=== PATIENT | female | born 1945 | race Caucasian/White ===

== ENCOUNTER 2019-05-20 09:03 | Outpatient (CLI) | payer MEDICARE, SELFPAY ==
--- NOTE | ~2019-05-20 | MM_ITS ---
EXAMINATION: MM screening [facility] BI w [place] HISTORY: Screening mammogram TECHNIQUE: Craniocaudal and mediolateral oblique 3-D tomosynthesis images were obtained and synthetic 2-D images were generated. CAD analysis was submitted and interpreted. COMPARISON: 01/21/2017, 06/16/2015, 12/24/2013 BREAST PARENCHYMAL COMPOSITION: The breasts are almost entirely fatty. FINDINGS: There is no evidence of suspicious mass, calcification, or architectural distortion to sugg est malignancy in either breast. There has been no suspicious interval change. IMPRESSION: 1. No mammographic evidence of malignancy. 2. Recommend routine screening mammography in one year. BI-RADS Category 1: Negative Reviewed, dictated and finalized at location A. 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
--- NOTE | ~2019-05-20 | DEXA_ITS ---
Bone Density Report Name: Caro Powell Age: 73 Sex: Female Ethnicity: White Date of : 1945 Indication: postmenopausal; parental hip fracture; height loss; prior fracture; hysterectomy; Referring Provider: ALEXANDRE HOGAN Study: Bone densitometry was performed. Exam Date: May 20, 2019 Accession number: [id number] Bone Density: Region BMD T-score Z-score Classification AP Spine (L1-L4) 1.103 0.5 2.9 Normal Femoral Neck (Left) 0.916 0.6 2.7 Normal Total Hip (Left) 1.072 1.1 2.8 Normal Total Hip Bilateral Avg 1.049 0.9 2.6 Normal Femoral Neck (Right) 0.851 0.0 2.1 Normal Total Hip (Right) 1.025 0.7 2.4 Normal World Health Organization criteria for BMD impression classify patients as: Normal (T-score at or above -1.0), Osteopenia (T-score between -1.0 and -2.5), or Osteoporosis (T-score at or below -2.5). 10-year Fracture Risk: FRAX not reported because: All T-scores for Spine Total, Hip Total, Femoral Neck at or above -1.0 Previous Exams: Region Exam Age BMD T-score BMD Change BMD Change Date g/cm2 vs Baseline vs Previous AP Spine(L1-L4) 05/20/2019 73 1.103 0.5 0.027(2.6%)# -0.004(-0.3%) 01/21/2017 71 1.107 0.5 0.031(2.9%)# 0.020(1.9%) 12/24/2013 68 1.086 0.4 0.011(1.0%)# 0.043(4.1%)# 02/18/2011 65 1.044 0.0 -0.032(-3.0%)* -0.032(-3.0%)* 10/06/2006 60 1.075 0.3 Total Hip(Left) 05/20/2019 73 1.072 1.1 -0.007(-0.6%)# -0.039(-3.6%)* 01/21/2017 71 1.112 1.4 0.033(3.0%)# 0.069(6.6%)* 12/24/2013 68 1.042 0.8 -0.037(-3.4%)# -0.036(-3.4%)# 02/18/2011 65 1.079 1.1 0.000(0.0%) 0.000(0.0%) 10/06/2006 60 1.079 1.1 Total Hip(Right) 05/20/2019 73 1.025 0.7 -0.055(-5.1%)# -0.051(-4.7%)* 01/21/2017 71 1.076 1.1 -0.003(-0.3%)# 0.035(3.4%)* 12/24/2013 68 1.041 0.8 -0.039(-3.6%)# -0.051(-4.7%)# 02/18/2011 65 1.092 1.2 0.012(1.2%) 0.012(1.2%) 10/06/2006 60 1.080 1.1 *Denotes significance at 95% confidence level, LSC for AP Spine = 0.022 g/cm2, LSC for Total Hip = 0.027 g/cm2 Clinical Information Provided by Patient: Has had a low trauma fracture Parent has had a hip fracture Has the following medical conditions: Hysterectomy Patient maximum height was 63 Menopause Age: 59 No regular weight bearing exercise Drinks caffeinated beverages Onset of menses at age 13 Number of children 4 Impression: The patient [place]
== END 2019-05-20 09:04 | disposition home or self-care (01) ==
PROVIDERS: PCP Emergency Medicine; Visit Provider Emergency Medicine
DX: Z12.31 Encounter for screening mammogram for malignant neoplasm of breast (principal); Z78.0 Asymptomatic menopausal state
CPT/HCPCS: 77063; 77067; 77080

== ENCOUNTER 2020-06-26 14:15 | Outpatient (CLI) | payer MEDICARE, SELFPAY ==
--- NOTE | ~2020-06-26 | XR_ITS ---
EXAMINATION: XR hip RT 2V w AP pelvis INDICATION: Right hip pain TECHNIQUE: AP view of the pelvis and two views of the right hip are obtained. COMPARISON: 06/10/2017 FINDINGS: There is mild hip osteoarthritis. Bone alignment is normal. There is no fracture. Calcified atherosclerosis is noted. IMPRESSION: 1. Mild osteoarthritis. Reviewed, dictated and finalized at location A. 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 Mild osteoarthritis.
--- NOTE | ~2020-06-26 | XR_ITS ---
EXAMINATION: XR lumbar spine 2-3V DATE: 06/26/2020 14:51 INDICATION: Low back pain TECHNIQUE: Anteroposterior and lateral views of the lumbar spine, and cone-down lateral view of the l umbosacral junction were obtained. COMPARISON: None. FINDINGS: There are 2 mm of listhesis L5 on S1. Vertebral body alignment is otherwise normal. There i s severe loss of intervertebral disc space height at L5-S1 and mild to moderate loss of intervertebra l disc space height throughout the remainder of the lumbar spine. The lumbar vertebral body heights a re maintained. There is no fracture. There is a 4.6 cm saccular aneurysm of the infrarenal abdominal aorta. IMPRESSION: 1. Grade 1 anterolisthesis of L5 on S1 and otherwise mild to moderate lumbar spondylosis. 2. 4.6 cm saccular aneurysm of the infrarenal abdominal aorta. Further evaluation by CT with contrast is recommended. Reviewed, dictated and finalized at location A. DOM OF INFORMATION OFFICER IMPRESSION: 1. Grade 1 anterolisthesis of L5 on S1 and otherwise mild to moderate lumbar sp ondylosis. 2. 4.6 cm saccular aneurysm of the infrarenal abdominal aorta. Further evaluati on by CT with contrast is recommended.
== END 2020-06-26 14:16 | disposition home or self-care (01) ==
PROVIDERS: PCP Emergency Medicine; Visit Provider Emergency Medicine
DX: M25.551 Pain in right hip (principal); M54.5 Low back pain; M16.11 Unilateral primary osteoarthritis, right hip; M43.17 Spondylolisthesis, lumbosacral region; I71.4 Abdominal aortic aneurysm, without rupture; M47.816 Spondylosis without myelopathy or radiculopathy, lumbar region
CPT/HCPCS: 72100; 73502

== ENCOUNTER 2020-07-05 16:17 | Outpatient (CLI) | payer MEDICARE, SELFPAY ==
--- NOTE | ~2020-07-05 | CT_ITS ---
EXAMINATION: CTA abdomen pelvis DATE: 07/05/2020 17:15 INDICATION: Abdominal aortic aneurysm TECHNIQUE: Computed tomography (CT) of the abdomen and pelvis was performed with 100 cc Omnipaque 350 intravenous contrast. Automated exposure control and iterative reconstruction technique were employe d. Exam dose: 619.83 mGy-cm total exam DLP. COMPARISON: None. FINDINGS: There is mild discoid atelectasis or scarring in the lower lung zones with no infiltrate or consolidation. Heart size is within normal limits. There is trace pericardial fluid. Small sliding hiatal hernia. No hepatic, splenic, pancreatic space-occupying mass lesion. The gallbladder is present. No bile duct or pancreatic duct dilatation. 2 cm right adrenal mass and 1.1 cm left adrenal mass; if there is no known malignancy, these are like ly an adrenal adenomas. No renal mass lesion. No urinary tract calculus or hydroureteronephrosis. The urinary bladder is unre markable. Status post hysterectomy. Normal appendix. Occasional sigmoid colon diverticula; no CT evidence of diverticulitis. No bowel obstruction, bowel wall thickening, pneumatosis or intraperitoneal free air. Up to 3.6 cm fusiform infrarenal abdominal aortic aneurysm without evidence of rupture. The aneurysm terminates slightly proximal to the aortic bifurcation. There is an approximately 3.2 x 3.4 cm lucent lesion of the right sacral alar, with thin sclerotic ma rgins suggesting a colonic process. Consider radionuclide bone scan. Bilateral L5 pars and articularis defect with associated grade 1 anterolisthesis at L5-S1. Severe degenerative disc disease at L3-4 and L5-S1. Degenerative spurring of the lower thoracic spine. IMPRESSION: Fusiform 3.6 cm infrarenal abdominal aortic aneurysm Small sliding hiatal hernia Bilateral adrenal masses Sigmoid diverticulosis; no evidence of diverticulitis Status post hysterectomy Reviewed, dictated and finalized at Location A. Reviewed, dictated and finalized at location A.
[2020-07-05 17:08] LABS: Estimated Glomerular Filt Rate 44
== END 2020-07-05 16:18 | disposition home or self-care (01) ==
PROVIDERS: PCP Emergency Medicine; Visit Provider Emergency Medicine
DX: I71.4 Abdominal aortic aneurysm, without rupture (principal); E27.9 Disorder of adrenal gland, unspecified; M47.817 Spondylosis without myelopathy or radiculopathy, lumbosacral region; K57.30 Diverticulosis of large intestine without perforation or abscess without bleeding; K44.9 Diaphragmatic hernia without obstruction or gangrene
CPT/HCPCS: 74174; Q9967

== ENCOUNTER 2020-07-10 07:54 | Outpatient (CLI) | payer MEDICARE, SELFPAY ==
--- NOTE | ~2020-07-10 | NM_ITS ---
EXAMINATION: NM bone scan whole body DATE: 07/10/2020 12:25 INDICATION: Sacrococcygeal disorder TECHNIQUE: 44.3 mCi Tc-99m HDP was administered intravenously. Delayed whole-body scintigrams were o btained at 3 hours and 24 hours. COMPARISON: CT abdomen and pelvis dated 07/05/2020 FINDINGS: Photopenic defect at the right knee/with a total knee arthroplasty. Small foci of likely degenerative joint centered uptake at the medial and patellofemoral compartments of the left knee, at the right a nkle and left midfoot and at the bilateral acromioclavicular joints. Additional likely degenerative d isc centered uptake at several levels in the lower thoracic spine with severe disc height loss with d egenerative endplate changes evident on prior CT . There is also increased uptake at the lower lumbar spine associated with bilateral pars interarticularis defects. There is a photopenic defect correspo nding to the lytic lesion with central fat attenuation within the right sacral ala. No other suspicio us foci of abnormal bone uptake. IMPRESSION: 1. Photopenic defect corresponding to the lytic lesion with central fat attenuation and sharp zone of transition with thin sclerotic margins within the right sacral ala the absence of uptake on the CT a ppearance favors a benign etiology including intraosseous lipoma, hemangioma or involution of a prior bone cyst. Reviewed, dictated and finalized at location A. IMPRESSION: 1. Photopenic defect corresponding to the lytic lesion with central fat attenua tion and sharp zone of transition with thin sclerotic margins within the right sacral ala the absence of uptake on the CT appearance favors a benign etiology including intraosseous lipoma, hemangioma or involution of a prior bone cyst.
== END 2020-07-10 07:55 | disposition home or self-care (01) ==
PROVIDERS: PCP Emergency Medicine; Visit Provider Emergency Medicine
DX: M53.3 Sacrococcygeal disorders, not elsewhere classified (principal)
CPT/HCPCS: 78306; A9561

== ENCOUNTER 2020-07-25 08:59 | Outpatient (CLI) | payer MEDICARE, SELFPAY ==
--- NOTE | ~2020-07-25 | MM_ITS ---
EXAMINATION: MM screening [facility] BI w [facility] HISTORY: Screening mammogram TECHNIQUE: Craniocaudal and mediolateral oblique 3-D tomosynthesis images were obtained and synthetic 2-D images were generated. CAD analysis was submitted and interpreted. COMPARISON: 05/20/2019, 01/21/2017, 06/16/2015 bilateral digital screening mammogram examinations BREAST PARENCHYMAL COMPOSITION: The breasts are almost entirely fatty. FINDINGS: There is no evidence of suspicious mass, calcification, or architectural distortion to sugg est malignancy in either breast. There has been no suspicious interval change. IMPRESSION: 1. No mammographic evidence of malignancy. 2. Recommend routine screening mammography in one year. BI-RADS Category 1: Negative Reviewed, dictated and finalized at location A.
== END 2020-07-25 09:00 | disposition home or self-care (01) ==
PROVIDERS: PCP Emergency Medicine; Visit Provider Emergency Medicine
DX: Z12.31 Encounter for screening mammogram for malignant neoplasm of breast (principal)
CPT/HCPCS: 77063; 77067

== ENCOUNTER 2021-09-11 07:39 | Outpatient (CLI) | payer MEDICARE, BC, SELFPAY ==
--- NOTE | ~2021-09-11 | CT_ITS ---
EXAMINATION: CT abdomen pelvis w con DATE: 09/11/2021 08:12 INDICATION: Abdominal aortic aneurysm TECHNIQUE: Computed tomography (CT) of the abdomen and pelvis was performed with 100 mL Omnipaque-300 intravenous contrast. Automated exposure control and iterative reconstruction technique were employe d. The dose-length product was 732.41 mGy-cm. COMPARISON: 07/05/2020 FINDINGS: Calcified left lower lobe nodule and calcified left hilar lymph nodes consistent with old granulomato us disease. Mild atelectasis in the lingula and right middle lobe. Heart size is normal. Atherosclero tic coronary artery calcification. Aortic valve calcification. No pericardial or pleural effusion. Sm all sliding-type hiatal hernia. Liver and gallbladder are normal. There is moderate fatty atrophy of the pancreas. Tiny splenic calcification consistent with old granulomatous disease. No interval coto e in bilateral adrenal masses measuring 1.8 cm on the right and 1.2 cm on the left which given the in terval stability most likely represent adenomas. There are few scattered colonic diverticula without adjacent from 3 change to suggest diverticulitis. Small bowel and appendix are normal. Bladder is nor mal. The uterus is not identified and has likely been surgically resected. There is calcified atheros clerosis of the aorta and many of the other arteries. No interval change in a fusiform infrarenal abd ominal aortic aneurysm measuring 3.9 x 3.8 cm in maximal diameter measured orthogonal to the axis of flow on coronal and sagittal images respectively. No free intraperitoneal gas or fluid. No pathologic ally enlarged abdominal or pelvic lymphadenopathy. Severe lumbar and lower thoracic spondylosis. 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 No interval c hange in an indolent 3.5 cm lytic lesion at the S1 right sacral ala with arrows on of transition with thin sclerotic margins and with central macroscopic fat attenuation consistent with either intraosse ous lipoma or hemangioma. Couple unchanged small sclerotic bone islands at the left femoral head and left posterior iliac spine. IMPRESSION: 1. No significant change in a fusiform 3.9 x 3.8 cm infrarenal abdominal aortic aneurysm. 2. Small sliding-type hiatal hernia. 3. Diverticulosis. Reviewed, dictated and finalized at location B.
[2021-09-11 08:00] LABS: Estimated Glomerular Filt Rate 37
== END 2021-09-11 07:40 | disposition home or self-care (01) ==
PROVIDERS: PCP Emergency Medicine; Visit Provider Emergency Medicine
DX: I71.4 Abdominal aortic aneurysm, without rupture (principal); K44.9 Diaphragmatic hernia without obstruction or gangrene; K57.90 Diverticulosis of intestine, part unspecified, without perforation or abscess without bleeding
CPT/HCPCS: 74177; Q9967

== ENCOUNTER 2022-01-03 08:17 | Outpatient (CLI) | payer MEDICARE, SELFPAY ==
--- NOTE | 2022-01-03 12:29 | WPDPFTINT ---
PFT Procedure Performed PFT Procedure Performed Plethysmography (Lung Vol) Diffusing Cap (DLCO) Flow Vol Loop Spirometry w/o Bronchodil PFT Interpretation Lung volumes were measured with the body plethysmography method. Lung volumes are unremarkable. Spirometry showed normal expiratory flow rates and a normal FEV1 to FVC ratio 74%. No post bronchodilator study was carried out. Lung diffusion capacity is within the normal range at 79% predicted. The flow-volume loop is unremarkable. Impression: Spirometry, lung volumes, and lung diffusion capacity all within the normal range.
== END 2022-01-03 08:18 | disposition home or self-care (01) ==
LOC: ANHPFT 08:18
PROVIDERS: PCP Emergency Medicine; Visit Provider Internal Medicine Cardiovascular Disease
DX: R06.09 Other forms of dyspnea (principal); R06.00 Dyspnea, unspecified
CPT/HCPCS: 94375; 94726; 94729

== ENCOUNTER 2022-11-12 10:23 | Outpatient (CLI) | payer MEDICARE, BC, SELFPAY ==
--- NOTE | ~2022-11-12 | MM_ITS ---
EXAMINATION: MM screening [facility] BI w [facility] HISTORY: Screening mammogram TECHNIQUE: Craniocaudal and mediolateral oblique 3-D tomosynthesis images were obtained and synthetic 2-D images were generated. CAD analysis was submitted and interpreted. COMPARISON: 07/25/2020, 05/20/2019, 01/21/2017 BREAST PARENCHYMAL COMPOSITION: The breasts are almost entirely fatty. FINDINGS: No suspicious mass, calcification, or architectural distortion are identified in either meliton ast to suggest malignancy. There has been no suspicious interval change. IMPRESSION: 1. No mammographic evidence of malignancy. 2. Recommend routine screening mammography in one year. BI-RADS Category 1: Negative Reviewed, dictated and finalized at location D.
== END 2022-11-12 10:24 | disposition home or self-care (01) ==
PROVIDERS: PCP Emergency Medicine; Visit Provider Emergency Medicine
DX: Z12.31 Encounter for screening mammogram for malignant neoplasm of breast (principal)
CPT/HCPCS: 77063; 77067

== ENCOUNTER 2023-02-03 09:09 | Outpatient (CLI) | payer MEDICARE, SELFPAY ==
--- NOTE | ~2023-02-03 | US_ITS ---
EXAMINATION: US aorta DATE: 02/03/2023 11:11 INDICATION: Infrarenal abdominal aortic aneurysm without rupture TECHNIQUE: Grayscale, color Doppler, and pulsed Doppler images of the aorta and common iliac arteries were obtained. COMPARISON: CT abdomen and pelvis dated 09/11/2021 FINDINGS: The proximal aorta measures 2.8 cm. The mid aorta measures 1.8 cm. Fusiform infrarenal abdominal aort ic aneurysm in the distal aorta measuring up to 3.7 cm in AP diameter which is unchanged since the pr ior study. The left to right diameter on prior CT measured 3.9 cm. On transaxial imaging it measures no greater than 4.2 cm however this measurement can be artifactually exaggerated on transverse imagin g. No coronal imaging obtained. The right common iliac artery measures 1.1 cm. The left common iliac artery measures 1.1. IMPRESSION: 1. No significant interval change in a infrarenal abdominal aortic aneurysms measuring up to 3.7 cm A P diameter. Reviewed, dictated and finalized at location A. IMPRESSION: 1. No significant interval change in a infrarenal abdominal aortic aneurysms me asuring up to 3.7 cm AP diameter.
== END 2023-02-03 09:10 | disposition home or self-care (01) ==
PROVIDERS: PCP Emergency Medicine; Visit Provider Internal Medicine Cardiovascular Disease
DX: I71.43 Infrarenal abdominal aortic aneurysm, without rupture (principal)
CPT/HCPCS: 76775

== ENCOUNTER 2023-03-12 09:13 | Outpatient (CLI) | payer MEDICARE, SELFPAY ==
--- NOTE | ~2023-03-12 | XR_ITS ---
EXAMINATION: XR hand RT 2V INDICATION: Right hand and second metacarpophalangeal joint pain TECHNIQUE: Two views of the right hand are obtained. COMPARISON: None available FINDINGS: Bone alignment is normal. There is no fracture. There is mild osteoarthritis at the triscap he and first carpometacarpal joints as well is in multiple interphalangeal joints. No abnormal erosio ns are identified. No specific abnormality is identified at the second metacarpophalangeal joint as i ndicated clinical history. IMPRESSION: 1. No acute osseous abnormality. Reviewed, dictated and finalized at location F. 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
== END 2023-03-12 09:14 | disposition home or self-care (01) ==
PROVIDERS: PCP Emergency Medicine; Visit Provider Emergency Medicine
DX: M79.641 Pain in right hand (principal)
CPT/HCPCS: 73120

== ENCOUNTER 2023-04-08 12:03 | Outpatient (CLI) | payer MEDICARE, SELFPAY ==
--- NOTE | ~2023-04-08 | XR_ITS ---
Left Knee Technique: AP, lateral, and sunrise views were obtained. Clinical History: Pain Findings: No fracture or dislocation is seen. There is medial compartment narrowing, with moderate me dial joint line osteophyte formation. There is minimal spurring of the lateral patellofemoral compart ments. Soft tissues are unremarkable. No joint effusion is seen. Impression: Moderate medial compartment degenerative change. Minimal degenerative change of the lateral and vergara lofemoral compartments. Reviewed, dictated and finalized at location M. GER MUSIC Impression: Moderate medial compartment degenerative change. Minimal degenerative change of the lateral and patellofemoral compartments.
--- NOTE | ~2023-04-08 | XR_ITS ---
AP view of the pelvis and AP and lateral views of the right hip Clinical history: Pain Findings: No acute fracture or dislocation is seen. Osseous alignment is anatomic. There is mild dege nerative change of both hip. Soft tissues are unremarkable. Impression: Mild degenerative change of both hip joints. Reviewed, dictated and finalized at location . OR ENTERPRISE ARCHITECT Impression: Mild degenerative change of both hip joints.
== END 2023-04-08 12:04 | disposition home or self-care (01) ==
LOC: ANHIMG 12:08
PROVIDERS: PCP Emergency Medicine; Visit Provider Physician Assistant Surgical
DX: M70.61 Trochanteric bursitis, right hip (principal); M17.12 Unilateral primary osteoarthritis, left knee; M16.0 Bilateral primary osteoarthritis of hip
CPT/HCPCS: 73502; 73564

== ENCOUNTER 2023-06-14 14:17 | Emergency (ER) | payer MEDICARE, SELFPAY ==
--- NOTE | ~2023-06-14 | CT_ITS ---
EXAMINATION: CT brain wo con DATE: 06/14/2023 17:11 INDICATION: headache, hypertension . TECHNIQUE: Computed tomography (CT) of the head was performed without intravenous contrast. The mA wa s adjusted according to patient size. Iterative reconstruction technique was employed. The dose-lengt h product was 605.33 mGy-cm. COMPARISON: None. FINDINGS: No acute intracranial hemorrhage or extra-axial fluid collection. No hydrocephalus, mass, or herniation. No acute ischemic infarct. Unremarkable dural venous sinus attenuation. No acute osseous abnormality. The aerated spaces are clear. Mild atrophy and moderate chronic white matter change. Atherosclerotic intracranial calcification. Bi lateral lens replacements. IMPRESSION: No acute intracranial process. Reviewed, dictated and finalized at location K. 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
--- NOTE | ~2023-06-14 | XR_ITS ---
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 RESULT: Lines, tubes, and devices: None. Lungs and pleura: No focal consolidation, pleural effusion, or pneumothorax. Calcified granulomas. Cardiomediastinal silhouette: Stable. Other: No acute osseous or upper abdominal finding. IMPRESSION: No acute cardiopulmonary process. Reviewed, dictated and finalized at location K. D EQUIPMENT MECHANIC
[2023-06-14 14:33] VITALS: BP 205/68; PULSE 61; RESP 18; TEMP 36.6; O2SAT 98
--- NOTE | 2023-06-14 14:40 | ECG_ITS ---
Measurements Intervals [place] Rate: 63 P: 17 OR: 204 QRS: -2 QRSD: 79 T: 23 QT: 434 QTc: 447 Interpretive Statements SINUS RHYTHM CANNOT RULE OUT ANTEROSEPTAL MYOCARDIAL INFARCTION, OF INDETERMINATE AGE CANNOT RULE OUT iNFERIOR MYOCARDIAL INFARCTION , PROBABLY OLD ABNORMAL ECG NO PREVIOUS ECG AVAILABLE FOR COMPARISON Electronically Signed On 06-15-2023 17:59:52 COUNTER ROLLER by Marco A Reilly M.D.
[2023-06-14 15:00] LABS: Basophils Percent Auto 0.7 % (0.2-1.2); Eosinophils Absolute Auto 0.2 K/mm3 (0-0.3); Eosinophils Percent Auto 3.3 % (0-4.4); Hematocrit 37.8 % (37.0-47.0); Hemoglobin 12.2 g/dL (12.0-15.0); Immature Granulocyte Absolute 0.01 K/mm3 (0.00-0.031); Immature Granulocyte Percent A 0.2 % (0-0.5); Lymphocytes Absolute Auto 1.55 K/mm3 (0.9-3.2); Lymphocytes Percent Auto 26.9 % (18.3-44.2); Mean Corpuscular HGB Conc 32.3 g/dl (32-36); Mean Corpuscular Hemoglobin 29.5 pg (26-34); Mean Corpuscular Volume 91.3 fl (80-100); Mean Platelet Volume 11.6 fl (7.4-10.4); Monocytes Absolute Auto 0.6 K/mm3 (0.1-0.6); Monocytes Percent Auto 9.7 % (2.6-8.5); Neutrophils Absolute Auto 3.4 K/mm3 (1.3-6.7); Neutrophils Percent Auto 59.2 % (45.5-73.1); Platelet Count Result 177 k/mm3 (150-375); Red Blood Count 4.14 M/mm3 (4.2-5.4); Red Cell Distribution Width 13.9 % (11.5-14.5); White Blood Count 5.8 K/mm3 (4.5-10.0)
[2023-06-14 15:13] LABS: Alanine Aminotransferase 20 U/L (6-35); Albumin Level 4.3 g/dL (3.5-5.1); Alkaline Phosphatase 57 U/L (38-126); Anion Gap 6 mmol/L (8-16); Aspartate Amino Transferase 27 U/L (14-36); Bilirubin,Total 0.5 mg/dL (0.2-1.3); Blood Urea Nitrogen 30 mg/dL (7-17); Calcium 9.7 mg/dL (8.4-10.2); Carbon Dioxide 29 mmol/L (22-30); Chloride 104 mmol/L (98-107); Estimated CRCL calculation 31 ml/min; Estimated Glomerular Filt Rate 40; Glucose 96 mg/dL (65-110); Potassium 3.9 mmol/L (3.4-5.0); Sodium 139 mmol/L (137-145)
[2023-06-14 15:24] LABS: Troponin I < 0.012 ng/mL (0.000-0.034)
[2023-06-14 16:11] VITALS: RESP 20; O2SAT 100
[2023-06-14 16:13] VITALS: BP 219/80; PULSE 54; RESP 18; O2SAT 100
--- NOTE | 2023-06-14 16:37 | ED.RECABL ---
HPI - Recheck/Abnormal Lab/Rx General Chief Complaint: Recheck/Abnormal Lab/Rx Stated Complaint: HTN Time Seen by Provider: 06/14/23 16:09 Source: patient Mode of arrival: ambulatory Limitations: no limitations History of Present Illness HPI narrative: This is a 77 year old female that presents to the ER for hypertension. Reports she has been checking her blood pressure regularly at home. It has been elevated up to 200 systolic which prompted her to be seen. She reports an associated headache. She takes 3 antihypertensives and has been taking them as prescribed. Reports she has had some trouble with exertional dyspnea ongoing over the last several months. Denies chest pain, or lower extremity edema. Related Data Home Medications Medication Instructions Recorded Confirmed rivaroxaban 2.5 mg tablet (Xarelto) 2.5 mg PO BID 07/08/22 04/09/23 Allergies Allergy/AdvReac Type Severity Reaction Status Date / Time No Known Allergies Allergy Verified 06/14/23 14:39 Review of Systems Review of Systems: CONSTITUTIONAL: Denies fever EYES: Denies visual changes CARDIOVASCULAR: Denies chest pain, or edema. RESPIRATORY: Reports dyspnea. NEUROLOGIC: Reports headache. Denies numbness, or weakness. All systems reviewed & are unremarkable except as noted in HPI and below PMFSH Past Medical History Medical History Back pain with left-sided radiculopathy Bilateral carotid bruits Body mass index [BMI] 27.0-27.9, adult (08/27/16) Body mass index [BMI] 28.0-28.9, adult (11/27/15) Burning with urination Carotid artery bruit Chest pain in adult Closed nondisplaced fracture of greater tuberosity of left humerus Fracture of proximal end of left humerus (~12/2018) Hematuria HLD (hyperlipidemia) Hyperglycemia Hypothyroidism (acquired) Left hip pain Left leg pain Lightheaded Localized osteoarthritis of left knee Osteoarthritis of left knee Primary generalized (osteo)arthritis RLS (restless legs syndrome) Stress incontinence in female Surgical History Surgical History History of prolapse of bladder History of total right knee replacement (~06/18/18) Hx of hysterectomy Family History Family History Sibling Family history of diabetes mellitus in first degree relative Social History Social History Smoking status: Never smoker Alcohol intake: never Current Housing: Decline to Answer Concerned About Future Housing: Decline to Answer Difficulty Paying Gas/Electric Bills: Decline to Answer Difficulty Paying for Meds: Decline to Answer Currently Unemployed: Decline to Answer Education: Decline to Answer Difficulty w/ Childcare or Family Care: Decline to Answer Exam Narrative: GENERAL: Elderly, well-nourished, and in no acute distress. HEAD: Normocephalic, atraumatic. EYES: PERRLA and EOMI. ENT: Nares clear, no rhinorrhea or epistaxis. Mucous membranes moist. Oropharynx without tonsillar hypertrophy exudate or other lesions. Bilateral TMs pearly blake non-bulging NECK: Supple. No adenopathy or masses. CHEST: Clear to auscultation. No respiratory distress. No wheezes rales or rhonchi HEART: Regular rate and rhythm. No murmur heard. Normal peripheral pulses. EXTREMITIES: Normal range of motion. No edema. SKIN: Warm, dry, no rash. NEURO: No focal deficits. Alert and oriented x3. CN II-XII grossly intact PSYCH: Normal mood and affect Course Course Emergency Course: Patient updated on her workup and agrees with plan of care Consultations Consultation #1: Spoke with Dr. Baca about patient and workup. Will increase Guanfacine to 2mg and she can follow up in clinic early next week Date: 06/14/23 Vital Signs Vital signs: Vital Signs Temperature 97.9 F 06/14/23 14:33 Pulse Rate 61
[2023-06-14 16:38] VITALS: BP 184/93; PULSE 63; RESP 18; O2SAT 99
[2023-06-14 16:47] VITALS: BP 170/75; PULSE 63; RESP 18; O2SAT 100
[2023-06-14 18:10] VITALS: BP 175/68; PULSE 63; RESP 18; O2SAT 98
== END 2023-06-14 18:13 | disposition home or self-care (01) ==
PROVIDERS: Emergency Medicine; Emergency Provider Physician Assistant; PCP Emergency Medicine
DX: I10 Essential (primary) hypertension (principal); E78.5 Hyperlipidemia, unspecified; E03.9 Hypothyroidism, unspecified; M17.12 Unilateral primary osteoarthritis, left knee; G25.81 Restless legs syndrome; N39.3 Stress incontinence (female) (male); Z96.651 Presence of right artificial knee joint; Z90.710 Acquired absence of both cervix and uterus; R94.31 Abnormal electrocardiogram [ECG] [EKG]
CPT/HCPCS: 36415; 70450; 71046; 80053; 84484; 85025; 93005; 99284

== ENCOUNTER 2023-07-02 09:46 | Outpatient (CLI) | payer MEDICARE, SELFPAY ==
--- NOTE | ~2023-07-02 | MR_ITS ---
EXAMINATION: MR lumbar spine wo con DATE: 07/02/2023 10:26 INDICATION: Lumbar radiculopathy TECHNIQUE: Magnetic resonance imaging (MRI) of the lumbar spine was performed without intravenous con trast. Sequences included sagittal T2-weighted FSE, sagittal T2-weighted FS FSE, sagittal T1-weighted FSE, and axial T2-weighted FSE. COMPARISON: Lumbar spine radiographs dated 06/26/[address] abdomen and pelvis dated 09/11/2021 FINDINGS: L5 spondylolysis with bilateral pars intra-articular is defects and 6 mm anterolisthesis of L5 on S1. L1-2 millimeters retrolisthesis L1 on L2. Vertebral body heights are normal. Large relatively homoge neous T1 hyperintense fat saturating likely intraosseous lipoma versus hemangioma at the right sacral ala. Otherwise normal marrow signal. Moderate disc height loss at L3-L4 and L5-S1. Mild disc height loss at 11 T12, L1-L2 and L2-L3. Annular fissures at L1-L2 through L3-L4 and L5-S1. The conus medulla ris terminates at L1. There is normal signal in the caudal spinal cord. 8 mm T2 hyperintense right re nal cyst. Paravertebral soft tissues are unremarkable. The following disc levels are specifically dis cussed: T11-T12: The disc space is not included on the axial images. On the sagittal images however the disc is bulging with annular fissure and what appears be a small disc extrusion is an annular fissure and small right paracentral disc extrusion extending up to 1 cm below level of the superior endplate of T 12. This contributes to mild central canal stenosis. T12-L1: Small left paracentral disc protrusion. There is mild bilateral facet joint osteoarthritis. T here is no neural foraminal stenosis. There is minimal central canal stenosis. L1-L2: Disc is bulging with annular fissure. There is mild to moderate bilateral facet joint osteoart hritis. There is altered left and moderate right neural foraminal stenosis. There is mild central can al stenosis. L2-L3: Disc is bulging with annular fissure. There is hypertrophy of the ligamentum flavum. There is mild left and mild to moderate right facet joint osteoarthritis. There is mild to moderate bilateral neural foraminal stenosis. There is mild central canal stenosis. L3-L4: Disc is bulging with annular fissure. There is mild left and moderate right facet joint osteoa rthritis. There is moderate left and mild to moderate right neural foraminal stenosis. There is moder ate to severe central canal stenosis measuring 7 mm AP in the mid sagittal plane with no evident CSF signal surrounding the centrally clustered nerve roots. L4-L5: Disc is mildly bulging. There is moderate bilateral facet joint osteoarthritis. There is mild left and moderate right neural foraminal stenosis. There is minimal central canal stenosis. L5-S1: Annular fissure with broad-based disc extrusion extending from foraminal zone to foraminal zon e with disc material extending up to 5 mm cephalad to the level of the inferior endplate of L5. There is moderate bilateral facet joint osteoarthritis along with bilateral pars intra-articular is defect s.. There is moderate to severe bilateral neural foraminal stenosis. There is no central canal stenos is. IMPRESSION: 1. L5 spondylolysis with bilateral pars intra-articular is defects and 6 mm anterolisthesis L5 on S1. 2. Moderate lumbar spondylosis most notable for moderate to severe central canal stenosis at L3-L4 an d moderate to severe bilateral neural foraminal stenosis at L5-S1. 2. Reviewed, dictated and finalized at location B. IMPRESSION: 1. L5 spondylolysis with bilateral pars intra-articular is defects and 6 mm ant erolisthesis L5 on S1. 2. Moderate lumbar spondylosis most notable for moderate to severe central ofelia l stenosis at L3-L4 and moderate to severe bilateral neural foraminal olya
== END 2023-07-02 09:47 | disposition home or self-care (01) ==
LOC: ANHIMG 09:47
PROVIDERS: PCP Emergency Medicine; Visit Provider Emergency Medicine
DX: M43.06 Spondylolysis, lumbar region (principal); M47.817 Spondylosis without myelopathy or radiculopathy, lumbosacral region; M48.061 Spinal stenosis, lumbar region without neurogenic claudication; M48.07 Spinal stenosis, lumbosacral region
CPT/HCPCS: 72148

== ENCOUNTER 2023-09-02 10:47 | Outpatient (CLI) | payer MEDICARE, SELFPAY ==
[2023-09-02 11:37] LABS: Hematocrit 36.6 % (37.0-47.0); Hemoglobin 11.8 g/dL (12.0-15.0); Mean Corpuscular HGB Conc 32.2 g/dl (32-36); Mean Corpuscular Hemoglobin 29.9 pg (26-34); Mean Corpuscular Volume 92.7 fl (80-100); Mean Platelet Volume 12.5 fl (7.4-10.4); Platelet Count Result 166 k/mm3 (150-375); Red Blood Count 3.95 M/mm3 (4.2-5.4); White Blood Count 5.5 K/mm3 (4.5-10.0)
[2023-09-02 11:42] LABS: Appearance Urine Clear (Clear); Bilirubin Urine Negative (Negative); Blood Urine Negative (Negative); Color Urine Yellow (Yellow); Glucose Urine UA Negative (Negative); Ketones Urine Negative (Negative); Leukocyte Esterase Ur Negative LEU/UL (Negative); Nitrate Urine Negative (Negative); Protein Urine Negative (Negative); Specific Grav Ur 1.008 (1.001-1.035); Urobilinogen Urine 0.2 mg/dL (<2.0); pH Urine 5.5 (5.0-9.0)
[2023-09-02 11:50] LABS: Creatinine Urine 30.9 mg/dL; Total Protein Urine Random 12 mg/dL; Ur Ttl Prot Creatinine Ratio 0.39 mg/mg (0-0.20)
[2023-09-02 11:51] LABS: Albumin Level 4.3 g/dL (3.5-5.1); Anion Gap 5 mmol/L (4-12); Blood Urea Nitrogen 34 mg/dL (7-17); Calcium 9.4 mg/dL (8.4-10.2); Carbon Dioxide 29 mmol/L (22-30); Chloride 106 mmol/L (98-107); Creatine Kinase 116 U/L (30-135); Estimated Glomerular Filt Rate 40; Glucose 80 mg/dL (65-110); Phosphorus 4.1 mg/dL (2.5-4.5); Potassium 4.8 mmol/L (3.4-5.0); Sodium 140 mmol/L (137-145)
[2023-09-02 11:57] LABS: Add Urine Microscopic? NO
[2023-09-02 11:58] LABS: Complement C3 110 mg/dL (88-165)
[2023-09-02 12:00] LABS: Parathyroid Intact 90.9 pg/mL (7.5-53.5)
[2023-09-02 13:46] LABS: Erythrocyte Sedimentation Rate 22 mm/hr (0-20)
[2023-09-03 13:19] LABS: Kappa\\Lambda Light Chains 1.44 (0.26-1.65); Lambda Light Chain 17.4 mg/L (5.7-26.3)
[2023-09-03 14:19] LABS: Complement Total CH50 >60 U/mL (31-60)
[2023-09-06 03:58] LABS: Renin 1.15 ng/mL/h (0.25-5.82)
== END 2023-09-02 10:48 | disposition home or self-care (01) ==
LOC: ANHLAB 10:50
PROVIDERS: PCP Emergency Medicine; Visit Provider Internal Medicine Nephrology
DX: I12.9 Hypertensive chronic kidney disease with stage 1 through stage 4 chronic kidney disease, or unspecified chronic kidney disease (principal); N18.32 Chronic kidney disease, stage 3b; E78.2 Mixed hyperlipidemia
CPT/HCPCS: 36415; 80069; 81003; 82088; 82550; 82570; 83883; 83970; 84156; 84244; 84443; 85027; 85652; 86038; 86160; 86162

== ENCOUNTER 2023-09-17 10:12 | Outpatient (CLI) | payer MEDICARE, SELFPAY ==
[2023-09-22 12:36] LABS: Metanephrine, Urine 95
[2023-09-22 12:37] LABS: Metanephrine, Total Urine 251; Normetanephrine, Urine 156
== END 2023-09-17 10:13 | disposition home or self-care (01) ==
PROVIDERS: PCP Emergency Medicine; Visit Provider Internal Medicine Nephrology
DX: I12.9 Hypertensive chronic kidney disease with stage 1 through stage 4 chronic kidney disease, or unspecified chronic kidney disease (principal); N18.32 Chronic kidney disease, stage 3b; R76.0 Raised antibody titer; E21.1 Secondary hyperparathyroidism, not elsewhere classified
CPT/HCPCS: 36415; 82530; 83835; 86038; 86039; 86335

== ENCOUNTER 2023-09-19 11:10 | Outpatient (CLI) | payer MEDICARE, SELFPAY ==
--- NOTE | ~2023-09-19 | US_ITS ---
Renal-Bladder ultrasound Clinical History: Chronic kidney disease Technique: Real-time sonographic imaging of the kidneys and urinary bladder was performed. Findings: The right kidney measures 10.2 cm in length and the left kidney measures 13.5 cm. There is no hydronephrosis or renal calculus identified. Renal cortical echogenicity is within normal limits. No renal mass lesion is identified. The urinary bladder is moderately distended at the time of this exam. No intraluminal echoes are iden tified. No abnormal wall thickening is seen. Impression: Unremarkable ultrasound of the kidneys and urinary bladder. Reviewed, dictated and finalized at location M. Impression: Unremarkable ultrasound of the kidneys and urinary bladder.
== END 2023-09-19 11:11 | disposition home or self-care (01) ==
LOC: ANHIMG 11:11
PROVIDERS: PCP Emergency Medicine; Visit Provider Internal Medicine Nephrology
DX: I12.9 Hypertensive chronic kidney disease with stage 1 through stage 4 chronic kidney disease, or unspecified chronic kidney disease (principal); N18.32 Chronic kidney disease, stage 3b
CPT/HCPCS: 76775

== ENCOUNTER 2023-10-06 12:02 | Outpatient (CLI) | payer MEDICARE, SELFPAY ==
[2023-10-06 13:17] LABS: Rheumatoid Factor < 12.0 IU/ML (<12)
[2023-10-06 13:42] LABS: Vitamin D 25 Hydroxy 50.2 ng/mL
[2023-10-06 14:00] LABS: Erythrocyte Sedimentation Rate 32 mm/hr (0-20)
[2023-10-08 13:08] LABS: SS-A <1.0 NEG AI (<1.0 NEG); SS-B <1.0 NEG AI (<1.0 NEG)
[2023-10-09 00:47] LABS: ANCA Screen NEGATIVE (NEGATIVE)
[2023-10-09 13:38] LABS: Anti Glomerular Basement Memb <1.0 AI
[2023-10-13 15:03] LABS: Cryoglobulin, QL Negative (Negative)
== END 2023-10-06 12:03 | disposition home or self-care (01) ==
PROVIDERS: PCP Emergency Medicine; Visit Provider Internal Medicine Nephrology
DX: E21.1 Secondary hyperparathyroidism, not elsewhere classified (principal); N18.32 Chronic kidney disease, stage 3b; R76.0 Raised antibody titer
CPT/HCPCS: 36415; 82306; 82595; 83520; 85652; 86036; 86225; 86235; 86430

== ENCOUNTER 2023-12-30 10:56 | Outpatient (CLI) | payer MEDICARE, SELFPAY ==
[2023-12-30 11:21] LABS: Hematocrit 36.1 % (37.0-47.0); Hemoglobin 11.6 g/dL (12.0-15.0); Mean Corpuscular HGB Conc 32.1 g/dl (32-36); Mean Corpuscular Hemoglobin 29.8 pg (26-34); Mean Corpuscular Volume 92.8 fl (80-100); Mean Platelet Volume 11.3 fl (7.4-10.4); Platelet Count Result 178 k/mm3 (150-375); Red Blood Count 3.89 M/mm3 (4.2-5.4); Red Cell Distribution Width 13.9 % (11.5-14.5); White Blood Count 5.9 K/mm3 (4.5-10.0)
[2023-12-30 11:41] LABS: Creatinine Urine 25.5 mg/dL; Total Protein Urine Random 11 mg/dL; Ur Ttl Prot Creatinine Ratio 0.43 mg/mg (0-0.20)
[2023-12-30 11:42] LABS: Albumin Level 4.1 g/dL (3.5-5.1); Anion Gap 8 mmol/L (4-12); Blood Urea Nitrogen 33 mg/dL (7-17); Calcium 9.1 mg/dL (8.4-10.2); Carbon Dioxide 30 mmol/L (22-30); Chloride 97 mmol/L (98-107); Estimated Glomerular Filt Rate 33; Glucose 86 mg/dL (65-110); Phosphorus 3.6 mg/dL (2.5-4.5); Potassium 4.1 mmol/L (3.4-5.0); Sodium 135 mmol/L (137-145)
[2023-12-30 11:53] LABS: Parathyroid Intact 67.7 pg/mL (14.5-75.2)
== END 2023-12-30 10:57 | disposition home or self-care (01) ==
PROVIDERS: PCP Emergency Medicine; Visit Provider Internal Medicine Nephrology
DX: N18.32 Chronic kidney disease, stage 3b (principal); E78.2 Mixed hyperlipidemia
CPT/HCPCS: 36415; 80069; 82570; 83970; 84156; 85027

== ENCOUNTER 2024-01-29 14:25 | Outpatient (CLI) | payer MEDICARE, SELFPAY ==
[2024-01-29 14:46] LABS: Anion Gap 6 mmol/L (4-12); Blood Urea Nitrogen 36 mg/dL (7-17); Calcium 9.2 mg/dL (8.4-10.2); Carbon Dioxide 32 mmol/L (22-30); Chloride 93 mmol/L (98-107); Estimated Glomerular Filt Rate 27; Glucose 104 mg/dL (65-110); Potassium 3.7 mmol/L (3.4-5.0); Sodium 131 mmol/L (137-145)
== END 2024-01-29 14:26 | disposition home or self-care (01) ==
LOC: ANHLAB 14:27
PROVIDERS: PCP Emergency Medicine; Visit Provider Internal Medicine Nephrology
DX: N18.32 Chronic kidney disease, stage 3b (principal)
CPT/HCPCS: 36415; 80048

== ENCOUNTER 2024-02-26 11:05 | Outpatient (CLI) | payer MEDICARE, SELFPAY ==
[2024-02-26 12:02] LABS: Anion Gap 13 mmol/L (4-12); Blood Urea Nitrogen 42 mg/dL (7-17); Calcium 9.7 mg/dL (8.4-10.2); Carbon Dioxide 28 mmol/L (22-30); Chloride 98 mmol/L (98-107); Estimated Glomerular Filt Rate 29; Glucose 115 mg/dL (65-110); Potassium 3.9 mmol/L (3.4-5.0); Sodium 139 mmol/L (137-145)
== END 2024-02-26 11:06 | disposition home or self-care (01) ==
PROVIDERS: PCP Emergency Medicine; Visit Provider Internal Medicine Nephrology
DX: E87.1 Hypo-osmolality and hyponatremia (principal)
CPT/HCPCS: 36415; 80048

== ENCOUNTER 2024-03-22 13:25 | Outpatient (CLI) | payer MEDICARE, SELFPAY ==
--- NOTE | ~2024-03-22 | XR_ITS ---
Lumbosacral Spine: AP and lateral views Clinical History: Pain COMPARISON: 321 Findings: The normal lordotic curve is maintained. No acute fracture. Stable grade 1 anterolisthesis of L5 over S1. Severe degenerative disc change L5-S1 is present. There is mild to moderate degenerati ve disc change at the remaining lumbar levels. There is advanced facet arthropathy, especially at L4- L5 and L5-S1. The sacroiliac joints are normally outlined. There is extensive atherosclerotic calcifi cation of the aorta, delineating a saccular aneurysm measuring up to 4.6 cm in diameter, stable from prior exam. Impression: Advanced degenerative spondylosis of the lumbar spine, as detailed above. 4.6 cm distal abdominal aortic aneurysm, stable from prior exam. Reviewed, dictated and finalized at [facility]. TECHNICAL ARCHITECT Impression: Advanced degenerative spondylosis of the lumbar spine, as detailed above. 4.6 cm distal abdominal aortic aneurysm, stable from prior exam.
== END 2024-03-22 13:26 | disposition home or self-care (01) ==
LOC: ANHIMG 13:27
PROVIDERS: PCP Emergency Medicine; Visit Provider Emergency Medicine
DX: M47.816 Spondylosis without myelopathy or radiculopathy, lumbar region (principal); I71.40 Abdominal aortic aneurysm, without rupture, unspecified
CPT/HCPCS: 72100

== ENCOUNTER 2024-04-19 10:25 | Outpatient (CLI) | payer MEDICARE, SELFPAY ==
[2024-04-19 11:05] LABS: Hematocrit 36.5 % (37.0-47.0); Hemoglobin 11.9 g/dL (12.0-15.0); Mean Corpuscular HGB Conc 32.6 g/dl (32-36); Mean Corpuscular Hemoglobin 29.3 pg (26-34); Mean Corpuscular Volume 89.9 fl (80-100); Mean Platelet Volume 11.2 fl (7.4-10.4); Platelet Count Result 215 k/mm3 (150-375); Red Blood Count 4.06 M/mm3 (4.2-5.4); Red Cell Distribution Width 14.1 % (11.5-14.5); White Blood Count 7.6 K/mm3 (4.5-10.0)
[2024-04-19 11:17] LABS: Creatine Kinase 181 U/L (30-135); Phosphorus 4.9 mg/dL (2.5-4.5)
[2024-04-19 11:24] LABS: Add Urine Microscopic? YES; Appearance Urine Clear (Clear); Bacteria Urine None Seen /hpf; Bilirubin Urine Negative (Negative); Blood Urine Negative (Negative); Color Urine Yellow (Yellow); Glucose Urine UA Negative (Negative); Ketones Urine Negative (Negative); Leukocyte Esterase Ur 2+ LEU/UL (Negative); Nitrate Urine Negative (Negative); Non Pathogenic Casts 0-2; Protein Urine Negative (Negative); RBC Urine 0-2 /hpf (0-2); Specific Grav Ur 1.008 (1.001-1.035); Squamous Epithelial Cell Urine None Seen /hpf (Few); Urobilinogen Urine 0.2 mg/dL (<2.0); WBC Urine 21-50 /hpf (0-3)
[2024-04-19 11:25] LABS: Alanine Aminotransferase 19 U/L (6-35); Albumin Level 4.1 g/dL (3.5-5.1); Alkaline Phosphatase 51 U/L (38-126); Anion Gap 4 mmol/L (4-12); Aspartate Amino Transferase 25 U/L (14-36); Bilirubin,Total 0.4 mg/dL (0.2-1.3); Blood Urea Nitrogen 44 mg/dL (7-17); Calcium 9.4 mg/dL (8.4-10.2); Carbon Dioxide 31 mmol/L (22-30); Chloride 100 mmol/L (98-107); Cholesterol 158 mg/dL (0-200); Estimated Glomerular Filt Rate 27; Glucose 75 mg/dL (65-110); HDL Direct 58 mg/dL; Parathyroid Intact 57.4 pg/mL (14.5-75.2); Sodium 135 mmol/L (137-145); Triglycerides 128 mg/dL (<150)
[2024-04-19 11:28] LABS: LDL Cholesterol Direct 54 mg/dL
[2024-04-19 11:36] LABS: Creatinine Urine 33.4 mg/dL; Total Protein Urine Random 13 mg/dL; Ur Ttl Prot Creatinine Ratio 0.39 mg/mg (0-0.20)
[2024-04-19 11:39] LABS: Creatinine Urine 32.9 mg/dL
[2024-04-19 11:45] LABS: Sodium Urine Random 64 meq/L
[2024-04-19 12:00] LABS: Vitamin D 25 Hydroxy 43.1 ng/mL
[2024-04-19 16:45] LABS: Potassium 3.8 mmol/L (3.4-5.0)
== END 2024-04-19 10:26 | disposition home or self-care (01) ==
PROVIDERS: PCP Emergency Medicine; Visit Provider Internal Medicine Nephrology
DX: E78.2 Mixed hyperlipidemia (principal); I12.9 Hypertensive chronic kidney disease with stage 1 through stage 4 chronic kidney disease, or unspecified chronic kidney disease; N18.32 Chronic kidney disease, stage 3b; E03.9 Hypothyroidism, unspecified; E78.5 Hyperlipidemia, unspecified; E55.9 Vitamin D deficiency, unspecified
CPT/HCPCS: 36415; 80053; 80061; 81001; 82306; 82550; 82570; 83970; 84100; 84156; 84300; 84443; 85027

== ENCOUNTER 2024-04-22 16:08 | Outpatient (CLI) | payer MEDICARE, SELFPAY | END 2024-04-22 16:09 | disposition home or self-care (01) | LOC: ANHLAB 16:14 | PROVIDERS: PCP Emergency Medicine; Visit Provider Internal Medicine Nephrology | DX: R82.81 Pyuria (principal) | CPT/HCPCS: 87077; 87086; 87186 ==

== ENCOUNTER 2024-05-07 09:50 | Outpatient (CLI) | payer MEDICARE, SELFPAY ==
--- NOTE | ~2024-05-07 | US_ITS ---
EXAMINATION: US aorta DATE: 05/07/2024 12:35 AVIATION MECHANIC INDICATION: Abdominal aortic aneurysm TECHNIQUE: Grayscale, color Doppler, and pulsed Doppler images of the aorta and common iliac arteries were obtained. COMPARISON: Ultrasound dated 02/03/2023 FINDINGS: The proximal aorta measures 2.6 cm sagittal dimension. The mid aorta measures 1.7 cm sagittal dimensi on. The distal aorta measures 3.7 cm greatest sagittal dimension. The right common internal iliac art jeramie measures 9 mm. The left common iliac artery measures 9 mm. IMPRESSION: 1. Stable infrarenal abdominal aortic aneurysm measuring 3.7 cm greatest sagittal dimension. Reviewed, dictated and finalized at location A. TION MECHANIC IMPRESSION: 1. Stable infrarenal abdominal aortic aneurysm measuring 3.7 cm greatest sagitt al dimension.
== END 2024-05-07 09:51 | disposition home or self-care (01) ==
LOC: ANHIMG 09:52
PROVIDERS: PCP Emergency Medicine; Visit Provider Internal Medicine Cardiovascular Disease
DX: I71.43 Infrarenal abdominal aortic aneurysm, without rupture (principal)
CPT/HCPCS: 76775

== ENCOUNTER 2024-06-04 10:32 | Outpatient (CLI) | payer MEDICARE, SELFPAY ==
--- OUTSIDE RECORDS SUMMARY | 2024-06-04 10:50 | XMS_ITS | Referral Summary ---
Author Organization [facility] Medical [facility] Building B Address [address] [place] [address] Care Team Providers Care Manager Physical Name Role Phone Bonifacio Baca MD Primary Care Provide r Encounters Date Type Department Care Team Description 05/27/2024 Telephone [facility] Cardiology [address] [place] [address] [place] [phone] Cindy Salcedo MD 05/07/2024 Orders Only [facility] Health Information Management [address] [place] [id number] Cindy Salcedo MD 04/19/2024 10:00 AM CHUTE MAN Office Visit [facility] Cardiology [address] [place] [address] [address] [place] [phone] Cindy Salcedo MD PAF (paroxysmal atrial fibrillation) (CMS/HCC) (HCC) (Primary Dx); CHRISTIAN (dyspnea on exertion); Infrarenal abdominal aortic aneurysm (AAA) without rupture (HCC); Nonrheumatic aortic valve stenosis; Mixed hyperlipidemia; Essential hypertension; Asymptomatic PVCs 03/30/2024 10:15 AM CHUTE MAN Ancillary Procedure [facility] Cardiology [address] [place] [address] [address] [place] [phone] Nonrheumatic aortic valve stenosis; Essential hypertension; PAF (paroxysmal atrial fibrillation) (CMS/HCC) (HCC) from Last 3 Months Allergies No known active allergies Medications ezetimibe (ZETIA) 10 mg tablet 08/14/19 20 Active metoprolol XL (TOPROL-XL) 50 mg extended release tablet Take 1 tablet (50 mg total) by mouth daily 05/15/19 22 Active losartan (COZAAR) 100 mg tablet Take 1 tablet (100 mg total) by mouth daily Active rOPINIRole (REQUIP) 2 mg tablet Take 1 tablet (2 mg total) by mouth 3 (three) times a day 04/26/19 23 Active simvastatin (ZOCOR) 40 mg tablet Take 1 tablet (40 mg total) by mouth daily 02/15/20 22 Active Xarelto 20 mg tablet TAKE 1 TABLET BY MOUTH DAILY WITH BREAKFAST 30 tablet 11 06/27/19 24 Active guanFACINE (TENEX) 2 mg tabletIndications :Essential hypertension Take 1 tablet (2 mg total) by mouth nightly 30 tablet 11 09/29/19 24 025 Active hydroCHLOROthiazi de 12.5 mg tablet Take 1 tablet (12.5 mg total) by mouth daily 30 tablet 11 10/02/19 24 025 Active levothyroxine (SYNTHROID) 88 mcg tabletIndications :Postablative hypothyroidism TAKE 1 TABLET (88 MCG TOTAL) BY MOUTH RESUME SPECIALIST BEFORE BREAKFAST 90 tablet 3 05/19/19 25 026 Active levothyroxine (SYNTHROID) 88 mcg tabletIndications :Postablative hypothyroidism Take 1 tablet (88 mcg total) by mouth him analyst before breakfast 90 tablet 3 07/15/19 24 025 Discontinued Active Problems Problem Noted Date Diagnosed Date Asymptomatic PVCs 04/19/2024 PAF (paroxysmal atrial fibrillation) (CMS/HCC) 0 09/29/2023 Palpitations 05/06/2022 Abdominal aortic aneurysm (AAA) without rupture 12/20/2021 Bilateral lower extremity edema 08/27/2021 CHRISTIAN (dyspnea on exertion) 06/25/2021 Nonrheumatic aortic valve stenosis 06/25/2021 Essential hypertension 06/25/2021 Knee pain 09/02/2018 Hyperlipidemia 09/02/2018 Postablative hypothyroidism 09/03/2016 Overview (09/13/2016): Hypothyroidism, unspecified Assessment & Plan (07/15/2023 12:20 PM CDT): Chronic, unknown status Patient currently on levothyroxine 88 mcg oral daily Recheck thyroid function test today and further plans based on it Social History Tobacco Use Types Packs/Day Years Used Date Smoking Tobacco: Former Smokeless Tobacco: Never Comments Unknown Sex and Gender Information Value Date Recorded Sex Assigned at Not on file Legal Sex Female 11:54 AM CDT Gender Identity Not on file Sexual Orientation Not on file Last Filed Vital Signs Vital Sign Reading Time Taken Comments Blood Pressure 132/76 04/19/2024 9:54 AM CHUTE MAN Pulse 66 04/19/2024 9:54 AM CHUTE MAN Temperature 36.2 C (97.1 F) 03/15/2020 1:55 PM CHUTE MAN Respiratory Rate 17 07/15/2023 11:2 5 AM CDT Oxygen Saturation 99% 04/19/2024 9:54 AM CHUTE MAN Inhaled Oxygen Concentration - - Weight 77.4 kg (170 lb 11.2 oz) 04/19/2024 9:54 AM CHUTE MAN Height 160 cm (5' 3 ) 04/19/2024 9:54 AM CHUTE MAN Body Mass Index 30.24 04/19/2024 9:54 AM CHUTE MAN Plan of Treatment Not on file Procedures Procedure Name Priority Date/Time Associated Diagnosis Comments SCAN - RADIOLOGY/IMAGING 05/07/2024 TRANSTHORACIC ECHO (TTE) COMPLETE W DOPPLER/CF WO CONTRAST Routine 03/30/2024 11:25 AM CHUTE MAN Nonrheumatic aortic valve stenosis Essential hypertension PAF (paroxysmal atrial fibrillation) (CMS/HCC) (HCC) from Last 3 Months Results * SCAN - RADIOLOGY/IMAGING (05/07/2024) Anatomical Region Laterality Modality Other us Cindy chacko Result * TRANSTHORACIC ECHO (TTE) COMPLETE W DOPPLER/CF WO CONTRAST (03/30/2024 11:25 AM CHUTE MAN) Anatomical Region Laterality Modality Ultrasound 03/30/2024 11:0 2 AM CHUTE MAN Narrative 03/30/2024 3:35 PM CHUTE MAN [facility] Group Cardiology [address], [place] [address] [address], [place] [address] P:[phone] P:[phone] Echocardiographic Report Patient Name: CARLOS EDUARDO DAMON K : 1945 Study Date: 03/30/2024 11:02:05 AM Gender: F Tech: Location: [facility] Provider: CINDY SALCEDO Height(Cm): 160 BSA: 1.85 Weight(Kg): 76.7 Heart Rate: 71 BP: 156 / 75 Quality: Good Order Provider: CINDY SALCEDO PROCEDURES: Echocardiographic Report: Transthoracic echocardiogram with complete 2D, M-Mode, and color Doppler examination. With Strain Analysis. INDICATIONS: I35.0 Nonrheumatic aortic (valve) stenosis, I10 Essential (primary) hypertension, and I48.0 Paroxysmal atrial fibrillation. MEASUREMENTS: 2D/MM Value Range Doppler Value Range Estimated EF 64 % SHANE Vmax 0.94 cm2 [ 2.00 - 4.00 ] LVIDd 2D 4.05 cm [ 3.80 - 5.20 ] AV Mean PG 24 mmHg LVIDs 2D 2.93 cm [ 2.20 - 3.50 ] AV Peak Marlon 3.29 m/s [ 1.00 - 1.70 ] LVPWd 2D 1.45 cm [ 0.60 - 0.90 ] AV Peak PG 43 mmHg IVSd 2D 1.44 cm [ 0.60 - 0.90 ] AV VTI 60.12 cm LA Volume Index 31 cc/m2 [ 16 - 34 ] LVOT Diam 1.88 cm [ 1.70 - 2.10 ] LVOT Peak Marlon 0.87 m/s [ 0.70 - 1.10 ] LVOT VTI 22.91 cm MV E Peak Marlon 0.75 m/s [ 0.60 - 1.30 ] MV A Peak Marlon 1.21 m/s [ 1.00 - 1.20 ] MV Decel Time 219 msec [ 104 - 258 ] Lateral E` 0.05 m/s [ 0.10 - 0.15 ] E` 0.04 m/s E/E` 17 2D/MM Value Range Doppler Value Range - FINDINGS: Interpretation Site: Exam was interpreted at home. Left Ventricle: Ejection Fraction is visually estimated to be 64 %. Global Longitudinal Strain is -16 %. The left ventricular size and systolic function is normal. There is moderate concentric left ventricular hypertrophy. The left ventricular ejection fraction is visually estimated to be 60-65%. Resting Segmental Wall Motion Analysis: Total wall motion score is 1.00. There are no regional wall motion abnormalities. Right Ventricle: The right ventricle is normal in size and systolic function. Left Atrium: The left atrium is normal in size. Right Atrium: The right atrium is normal in size. Atrial Septum: The atrial septum appears visually intact. Mitral Valve: The mitral valve leaflets are sclerotic and there is posterior mitral annular calcification. There is no mitral regurgitation. Aortic Valve: Peak Velocity of 3.29 m/s. Mean gradient of 24.0 mmHg. Valve area of 1.1 cm2. The aortic valve is trileaflet and heavily calcified. There is moderate aortic stenosis. There is no aortic regurgitation. Tricuspid Valve: The tricuspid valve is grossly normal. There is trace tricuspid valve regurgitation. Pulmonic Valve: The pulmonic valve is not well visualized. There is color Doppler evidence of trace pulmonic valve regurgitation. Pericardium: Normal pericardium with no significant pericardial effusion. Aorta: The aortic root at the level of the sinus of Valsalva measures 2.8 cm in diameter. IVC: Normal size and normal respiratory collapse consistent with normal right atrial pressure (<5 mmHg). CONCLUSIONS: There is moderate concentric left ventricular hypertrophy. There is normal biventricular systolic function. There is moderate aortic stenosis. While the velocity and mean gradients across the valve suggest moderate stenosis, in certain views the aortic valve area is severe by continuity equation. Electronically Signed By: Dr. Syd Arias 03/30/2024 3:34:33 PM CHUTE MAN Procedure Note Syd Arias MD - 03/30/2024 [facility] Group Cardiology [address] [facility] [address], [place] [address] [address] [facility] [address] [place], [place] [address] P:[phone] P:[phone] Echocardiographic Report Patient Name: CARLOS EDUARDO DAMON K : 1945 Study Date: 03/30/2024 11:02:05 AM Gender: F Tech: Location: [facility] Provider: CINDY SALCEDO Height(Cm): 160 BSA: 1.85 Weight(Kg): 76.7 Heart Rate: 71 BP: 156 / 75 Quality: Good Order Provider: CINDY SALCEDO PROCEDURES: Echocardiographic Report: Transthoracic echocardiogram with complete 2D, M-Mode, and color Dopplerexamination. With Strain Analysis. INDICATIONS: I35.0 Nonrheumatic aortic (valve) stenosis, I10 Essential (primary)hypertension, and I48.0 Paroxysmal atrial fibrillation. MEASUREMENTS: 2D/MM Value Range Doppler ValueRange Estimated EF 64 % SHANE Vmax 0.94cm2 [ 2.00 - 4.00 ] LVIDd 2D 4.05 cm [ 3.80 - 5.20 ] AV Mean PG 24mmHg LVIDs 2D 2.93 cm [ 2.20 - 3.50 ] AV Peak Marlon 3.29m/s [ 1.00 - 1.70 ] LVPWd 2D 1.45 cm [ 0.60 - 0.90 ] AV Peak PG 43mmHg IVSd 2D 1.44 cm [ 0.60 - 0.90 ] AV VTI 60.12cm LA Volume Index 31 cc/m2 [ 16 - 34 ] LVOT Diam 1.88 cm[ 1.70 - 2.10 ] LVOT Peak Marlon 0.87 m/s [ 0.70 - 1.10 ] LVOT VTI 22.91 cm MV E Peak Marlon 0.75 m/s [ 0.60 - 1.30 ] MV A Peak Marlon 1.21 m/s [ 1.00 - 1.20 ] MV Decel Time 219 msec [ 104 - 258 ] Lateral E` 0.05 m/s [ 0.10 - 0.15 ] E` 0.04 m/s E/E` 17 2D/MM Value Range Doppler ValueRange - FINDINGS: Interpretation Site: Exam was interpreted at home. Left Ventricle: Ejection Fraction is visually estimated to be 64 %. Global LongitudinalStrain is -16 %. The left ventricular size and systolic function is normal. There ismoderate concentric left ventricular hypertrophy. The left ventricular ejection fraction isvisually estimated to be 60-65%. Resting Segmental Wall Motion Analysis: Total wall motion score is 1.00. There are no regional wall motionabnormalities. Right Ventricle: The right ventricle is normal in size and systolic function. Left Atrium: The left atrium is normal in size. Right Atrium: The right atrium is normal in size. Atrial Septum: The atrial septum appears visually intact. Mitral Valve: The mitral valve leaflets are sclerotic and there is posterior mitralannular calcification. There is no mitral regurgitation. Aortic Valve: Peak Velocity of 3.29 m/s. Mean gradient of 24.0 mmHg. Valve area of 1.1cm2. The aortic valve is trileaflet and heavily calcified. There is moderate aorticstenosis. There is no aortic regurgitation. Tricuspid Valve: The tricuspid valve is grossly normal. There is trace tricuspid valveregurgitation. Pulmonic Valve: The pulmonic valve is not well visualized. There is color Doppler evidenceof trace pulmonic valve regurgitation. Pericardium: Normal pericardium with no significant pericardial effusion. Aorta: The aortic root at the level of the sinus of Valsalva measures 2.8 cm indiameter. IVC: Normal size and normal respiratory collapse consistent with normal rightatrial pressure (<5 mmHg). CONCLUSIONS: There is moderate concentric left ventricular hypertrophy. There is normal biventricular systolic function. There is moderate aortic stenosis. While the velocity and mean gradientsacross the valve suggest moderate stenosis, in certain views the aortic valve area issevere by continuity equation. Electronically Signed By: Dr. Syd Arias 03/30/2024 3:34:33 PM CHUTE MAN Cindy Salcedo MD CV ECHO PROCEDURES F inal Result from Last 3 Months Insurance MEDICARE [employer] [facility] MEDICARE [facility] MEDICARE Care Teams Manager Physical Relationship Specialty Start Date End Date Bonifacio Baca MD [address] [place], [place] [id number] PCP - General Emergency Medicine 09/29/23
--- OUTSIDE RECORDS SUMMARY | 2024-06-04 10:50 | XMS_ITS | Encounter Summary ---
Author Organization [facility] Healthcare Address [address] [place] [address] Care Team Providers Care Safety Sealer Name Role Phone Bonifacio Baca MD Primary Care Provide r Encounter Details Date Type Department Care Team (Late st Contact Info) Description 05/27/2024 Telephone [facility] Medical Group Cardiology [address] [place] [address] Rowan Salcedo MD [address] [place] [id number] Social History Tobacco Use Types Packs/Day Years Used Date Smoking Tobacco: Former Smokeless Tobacco: Never Comments Unknown Sex and Gender Information Value Date Recorded Sex Assigned at Not on file Legal Sex Female 11:54 AM CDT Gender Identity Not on file Sexual Orientation Not on file documented as of this encounter Miscellaneous Notes * Telephone Encounter - Kavita Romano RN - 05/27/2024 11:00 AM STRAPPING MACHINE OPERATOR LM on , advised we have not received cardiac clearance request. Requested to have surgeons officefax clearance request to nurse fax. [phone] PPING MACHINE OPERATOR * Telephone Encounter - Berta Richardson - 05/27/2024 10:54 AM CST Pt states Dr. Arndt (ortho) faxed a cardiac clearance request in March to our office. States they have not received it back. Contact: PPING MACHINE OPERATOR documented in this encounter Plan of Treatment Not on file documented as of this encounter Visit Diagnoses Not on filedocumented in this encounter Care Teams Safety Sealer Relationship Specialty Start Date End Date Bonifacio Baca MD [address] [place] [address] PCP - General Emergency Medicine 09/29/23 documented as of this encounter
--- OUTSIDE RECORDS SUMMARY | 2024-06-04 10:50 | XMS_ITS | Clinical Summary ---
Author Organization [facility] Address [address] [place] [address] Care Team Providers Care Art Historian Name Role Phone Bonifacio Baca MD Primary Care Provider [phone] Allergies No known active allergies Social History Tobacco Use Types Packs/Day Years Used Date Smoking Tobacco: Never Assessed Comments Unknown Sex and Gender Information Value Date Recorded Sex Assigned at Not on file Legal Sex Female 5:35 PM CDT Gender Identity Not on file Sexual Orientation Not on file Last Filed Vital Signs Vital Sign Reading Time Taken Comments Blood Pressure 163/77 07/30/2021 3:51 PM CDT Pulse 77 07/30/2021 3:51 PM CDT Temperature 36.3 C (97.3 F) 07/30/2021 3:51 PM CDT Respiratory Rate 16 07/30/2021 3:51 PM CDT Oxygen Saturation 100% 07/30/2021 3:51 PM CDT Inhaled Oxygen Concentration - - Weight - - Height - - Body Mass Index - - Plan of Treatment Health Maintenance Due Date Last Done Comments Hepatitis C 1962 DTaP, Tdap and Td Vaccines (1 - Tdap) 12/05/1963 Zoster Vaccines (1 of 2) 1994 Annual Medicare Wellness Visit 2009 Dexa Scan (General) 2009 RSV Immunization or 60+ Years (1 - 1-dose 75+ series) 12/05/2019 COVID-19 Vaccine ( - season) 2023 03/05/2021, 06/13/2020, 05/16/2020 Influenza Adult (#1) 2024 01/04/2020, 02/24/2019, 02/13/2018, Additional history exists Pneumococcal Vaccine: 65+ Years Completed 03/25/2017, 04/04/2015 Meningococcal B Vaccine Aged Out No l onger eligible based on patient's age to complete this topic Meningococcal Vaccine Aged Out No reyes moon eligible based on patient's age to complete this topic RSV Immunizations Under 20 Months Aged Out No longer eligible based on patient's age to complete this topic Insurance MEDICARE [facility] Care Teams Art Historian Relationship Specialty Start Date End Date Bonifacio Baca MD [address] [place] [address] PCP - General INTERNAL MEDICINE 07/06/21
--- OUTSIDE RECORDS SUMMARY | 2024-06-04 10:50 | XMS_ITS | Clinical Summary ---
Author Organization [facility] Medical Office Building B Address [address] [place] [address] Care Team Providers Care General Manager Road Production Name Role Phone Bonifacio Baca MD Primary Care Provide r Allergies No known active allergies Medications ezetimibe [...] BY MOUTH DAILY WITH BREAKFAST 30 tablet 06/27/19 24 Active guanFACINE (TENEX) 2 mg tabletIndications :Essential hypertension Take 1 tablet (2 mg total) by mouth nightly 30 tablet 11 09/29/19 24 025 Active hydroCHLOROthiazi de 12.5 mg tablet Take 1 tablet (12.5 mg total) by mouth daily 30 tablet 10/02/19 24 025 Active levothyroxine (SYNTHROID) 88 mcg tabletIndications :Postablative hypothyroidism TAKE 1 TABLET (88 MCG TOTAL) BY MOUTH BROWNFIELD PROGRAM COORDINATOR BEFORE BREAKFAST 90 tablet 3 05/19/19 25 026 Active levothyroxine (SYNTHROID) 88 mcg tabletIndications :Postablative hypothyroidism Take 1 tablet (88 mcg total) by mouth military personnel specialist before breakfast 90 tablet 3 07/15/19 24 [...] today and further plans based on it Encounters Date Type Department Care Team Description 05/27/2024 Telephone [facility] Cardiology [address] [place] [address] [place] [phone] Cindy Salcedo MD 05/07/2024 Orders Only [facility] Health Information Management [address] [place] [address] Cindy Salcedo MD 04/19/2024 10:00 AM AUTOMATIC SHIRRING MACHINE OPERATOR Office Visit [facility] Cardiology [address] [place] [address] [address] [place] [phone] Cindy Salcedo MD PAF (paroxysmal atrial fibrillation) (CMS/HCC) (HCC) (Primary Dx); CHRISTIAN (dyspnea on exertion); Infrarenal abdominal aortic aneurysm (AAA) without rupture (HCC); Nonrheumatic aortic valve stenosis; Mixed hyperlipidemia; Essential hypertension; Asymptomatic PVCs 03/30/2024 10:15 AM AUTOMATIC SHIRRING MACHINE OPERATOR Ancillary Procedure [facility] Cardiology [address] [place] [address] [address] [place] [phone] Nonrheumatic aortic valve stenosis; Essential hypertension; PAF (paroxysmal atrial fibrillation) (CMS/HCC) (HCC) from Last 3 Months Surgical History Surgery Date Site/Laterality Comments REPLACEMENT TOTAL KNEE Right HYSTERECTOMY CARPAL TUNNEL RELEASE Medical History Medical History Date Comments Hypertension Thyroid disease Hyperlipidemia Family History Medical History Relation Name Comments Cancer Father Cancer, unknown ; Coronary artery disease Mother Komal nary artery disease; Relation Name Status Comments Father Mother Social History Tobacco Use Types Packs/Day Years Used Date Smoking Tobacco: Former Smokeless Tobacco: Never Comments Unknown Sex and Gender Information Value Date Recorded Sex Assigned at Not on file Legal Sex Female 11:54 AM CDT Gender Identity Not on file Sexual Orientation Not on file Obstetrics History Last Filed Vital Signs Vital Sign Reading Time Taken Comments Blood Pressure 132/76 04/19/2024 9:54 AM AUTOMATIC SHIRRING MACHINE OPERATOR Pulse 66 04/19/2024 9:54 AM AUTOMATIC SHIRRING MACHINE OPERATOR Temperature 36.2 C (97.1 F) 03/15/2020 1:55 PM AUTOMATIC SHIRRING MACHINE OPERATOR Respiratory Rate 17 07/15/2023 11:2 5 AM CDT Oxygen Saturation 99% 04/19/2024 9:54 AM AUTOMATIC SHIRRING MACHINE OPERATOR Inhaled Oxygen Concentration - - Weight 77.4 kg (170 lb 11.2 oz) 04/19/2024 9:54 AM AUTOMATIC SHIRRING MACHINE OPERATOR Height 160 cm (5' 3 ) 04/19/2024 9:54 AM AUTOMATIC SHIRRING MACHINE OPERATOR Body Mass Index 30.24 04/19/2024 9:54 AM AUTOMATIC SHIRRING MACHINE OPERATOR Plan of Treatment Health Maintenance Due Date Last Done Comments Depression Screening 1945 Hepatitis C Screening 1945 Osteoporosis Screening-Bone Density Scan 1945 DTaP/Tdap/Td Vaccine (1 - Tdap) 12/05/1955 Hepatitis B Screening 1962 Zoster Vaccine (1 of 2) 1994 Well Visit 65+ 2009 Influenza Vaccine (#1) 2023 9, 02/13/2018, 03/25/2017, Additional history exists Fall Risk Assessment 07/14/2024 07/15/2023 Pneumococcal vaccine 65+ Completed 03/25/2017, 03/21 Procedures Procedure Name Priority Date/Time Associated Diagnosis Comments SCAN - RADIOLOGY/IMAGING 05/07/2024 TRANSTHORACIC ECHO (TTE) COMPLETE W DOPPLER/CF WO CONTRAST Routine 03/30/2024 11:25 AM AUTOMATIC SHIRRING MACHINE OPERATOR Nonrheumatic aortic valve stenosis Essential hypertension PAF (paroxysmal atrial fibrillation) (CMS/HCC) (HCC) from Last 3 Months Results * SCAN - RADIOLOGY/IMAGING (05/07/2024) Anatomical Region Laterality Modality Other Cindy chacko Result * TRANSTHORACIC ECHO (TTE) COMPLETE W DOPPLER/CF WO CONTRAST (03/30/2024 11:25 AM AUTOMATIC SHIRRING MACHINE OPERATOR) Anatomical Region Laterality Modality Ultrasound 03/30/2024 11:0 2 AM AUTOMATIC SHIRRING MACHINE OPERATOR Narrative 03/30/2024 3:35 PM AUTOMATIC SHIRRING MACHINE OPERATOR [facility] Cardiology [address] [facility] [address], [place] [address] [address] [facility] [address], [place] [address] P:[phone] P:[phone] Echocardiographic Report Patient Name: CARLOS EDUARDO DAMON K : 1945 Study Date: 03/30/2024 11:02:05 AM Gender: F Tech: [place] Location: [facility] Provider: CINDY SALCEDO Height(Cm): 160 BSA: [...] By: Dr. Syd Arias 03/30/2024 3:34:33 PM AUTOMATIC SHIRRING MACHINE OPERATOR Procedure Note Syd Arias MD - 03/30/2024 [facility] Cardiology [address] [facility] [address], [place] [address] [address] [facility] [address] [address] P:[phone] P:[phone] Echocardiographic Report Patient Name: CARLOS EDUARDO DAMON K : 1945 Study Date: 03/30/2024 11:02:05 AM Gender: F Tech: Location: [facility] Provider: CINDY SALCEDO Height(Cm): 160 BSA: [...] By: Dr. Syd Arias 03/30/2024 3:34:33 PM AUTOMATIC SHIRRING MACHINE OPERATOR Cindy Sacledo MD CV ECHO PROCEDURES F inal Result from Last 3 Months Insurance MEDICARE [facility] MEDICARE [facility] MEDICARE Care Teams General Manager Road Production Relationship Specialty Start Date End Date Bonifacio Baca MD [address] [place], [place] [id number] PCP - General Emergency Medicine 09/29/23
[2024-06-04 11:27] LABS: Estimated Glomerular Filt Rate 26; Glucose 129 mg/dL (65-110)
[2024-06-04 11:28] LABS: Hematocrit 36.5 % (37.0-47.0); Hemoglobin 11.6 g/dL (12.0-15.0); Hemoglobin A1C 6.2 % (<5.7)
== END 2024-06-04 10:33 | disposition home or self-care (01) ==
LOC: ANHLAB 10:36
PROVIDERS: PCP Emergency Medicine; Visit Provider Orthopaedic Surgery
DX: R73.9 Hyperglycemia, unspecified (principal); N18.32 Chronic kidney disease, stage 3b; E78.2 Mixed hyperlipidemia
CPT/HCPCS: 36415; 82040; 82565; 82947; 83036; 85014; 85018

== ENCOUNTER 2024-06-21 08:53 | Outpatient (CLI) | payer MEDICARE, SELFPAY | END 2024-06-21 08:54 | disposition home or self-care (01) | PROVIDERS: PCP Emergency Medicine; Visit Provider Emergency Medicine | DX: Z12.31 Encounter for screening mammogram for malignant neoplasm of breast (principal) | CPT/HCPCS: 77063; 77067 ==

== ENCOUNTER 2024-07-15 15:20 | Outpatient (CLI) | payer MEDICARE, SELFPAY ==
--- NOTE | ~2024-07-15 | DEXA_ITS ---
Bone Density Report Name: CARLOS EDUARDO DAMON Age: 78 Sex: Female Ethnicity: White Date of : 1945 Indication: postmenopausal; screening for osteoporosis; parental hip fracture; height loss; hysterectomy; Referring Provider: ALEXANDRE HOGAN Study: Bone densitometry was performed. Exam Date: July 15, 2024 Accession number: [id number] Bone Density: Region BMD T-score Z-score Classification AP Spine(L1-L4) 1.175 1.2 3.8 Normal Femoral Neck (Left) 0.723 -1.1 1.1 Osteopenia Total Hip (Left) 1.022 0.7 2.7 Normal Femoral Neck (Right) 0.745 -0.9 1.3 Normal Total Hip (Right) 1.022 0.7 2.7 Normal Total Hip Mean 1.022 0.7 2.7 Normal World Health Organization criteria for BMD impression classify patients as: Normal (T-score at or above -1.0), Osteopenia (T-score between -1.0 and -2.5), or Osteoporosis (T-score at or below -2.5). 10-year Fracture Risk(1): Major Osteoporotic Fracture 19% Hip Fracture 9.2% Reported Risk Factors: [place] (), Neck BMD=0.723, BMI=31.9, parental fracture (1) FRAX(R) Version 3.08. Fracture probability calculated for an untreated patient. Fracture probability may be lower if the patient has received treatment. Previous Exams: Region Exam Age BMD T-score BMD Change BMD Change Date g/cm2 vs Baseline vs Previous AP Spine (L1-L4) 07/15/2024 78 1.175 1.2 0.069 (6.2%)# 0.072 (6.6%)# 05/20/2019 73 1.103 0.5 -0.004 (-0.3%) -0.004 (-0.3%) 01/21/2017 71 1.107 0.5 Total Hip(Left) 07/15/2024 78 1.022 0.7 -0.090 (-8.1%) -0.050 (-4.7%) 05/20/2019 73 1.072 1.1 -0.039 (-3.6%) -0.039 (-3.6%) 01/21/2017 71 1.112 1.4 Total Hip(Right) 07/15/2024 78 1.022 0.7 -0.054 (-5.0%) -0.003 (-0.3%) 05/20/2019 73 1.025 0.7 -0.051 (-4.7%) -0.051 (-4.7%) 01/21/2017 71 1.076 1.1 *Denotes significance at 95% confidence level, LSC for AP Spine = 0.022 g/cm2, LSC for Total Hip = 0.027 g/cm2 # Denotes dissimilar scan types or analysis methods Clinical Information Provided by Patient: Parent has had a hip fracture Has used the following medications: Vitamin D, Calcium Has the following medical conditions: Hysterectomy Patient maximum height was 63 Menopause Age: 59 No regular weight bearing exercise Does not regularly consume dairy products Drinks caffeinated beverages Onset of menses at age 12 Number of children 4 Impression: The patient has low bone mass, based on the Left Femoral Neck T-score. The patient has an estimated ten-year risk of hip fracture of 9.2% and an estimated ten-year risk of major fracture of 19%, based on the WHO FRAX algorithm. The patient has risk factors, including: parental hip fracture. No significant bone loss was observed. Discussion: BONE DENSITY IS LOW AT ONE OR MORE SKELETAL SITES. THE PATIENT'S BMD AND CLINICAL RISK FACTORS CONTRIBUTE TO THIS PATIENT'S INCREASED RISK OF FRACTURE. This patient's lowest T-score is low at one or more skeletal sites. It meets the World Health Organization's (WHO) criteria for ?low bone mass? (T-score between -1.0 and -2.5). The patient's 10-year risk of hip fracture as calculated by FRAX exceeds the threshold where pharmacological therapy is recommended by the National Osteoporosis Foundation (NOF). However, all treatment decisions require clinical judgment and consideration of individual patient factors, including patient preferences, comorbidities, previous drug use, risk factors not captured in the FRAX model (e.g., frailty, falls, vitamin D deficiency, increased bone turnover, interval significant decline in bone density) and possible under or overestimation of fracture risk by FRAX. The patient should follow a healthful lifestyle (good nutrition with adequate calcium and vitamin D, and appropriate weight-bearing exercise). Follow-Up: Consider a repeat BMD and Vertebral Fracture Assessment (VFA) exam in 2 years or sooner if medically necessary, to reassess this patient's status. Reported by: JOCELIN on 07/15/2024 4:02:00 PM. Reviewed, dictated and finalized at location AErlinda GARCIA
--- OUTSIDE RECORDS SUMMARY | 2024-07-15 16:14 | XMS_ITS | Encounter Summary ---
Author Organization [facility] Healthcare Address [address] [place] [address] Care Team Providers Care Men'S Locker Room Attendant Name Role Phone Bonifacio Baca MD Primary Care Provide r Reason for Visit * Reason Comments Postablative hypothyroidism * Consultation (Routine) - Closed Specialty Diagnoses / Procedures Referred By Contac t Referred To Contact Endocrinology Diagnoses Postablative hypothyroidism Bonifacio Baca MD [address] [facility] [place] [address] Phone: tel: [place]: [place] [address] [address] Phone: tel: fax: Referral ID Status Reason Start Date Expiration Date V isits Requested Visits Authorized [id number] Closed Specialty Services Required 07/13/2024 08/12/2025 1 1 Encounter Details Date Type Department Care Team (Latest Contact Info) Description 07/14/2024 10:15 AM CDT Office Visit [facility] [address] [facility] [address] [place] [phone] [place] [address] [address] Postablative hypothyroidism (Primary Dx); Essential hypertension; Mixed hyperlipidemia Social History Tobacco Use Types Packs/Day Years Used Date Smoking Tobacco: Former Smokeless Tobacco: Never Comments Unknown Sex and Gender Information Value Date Recorded Sex Assigned at Not on file Legal Sex Female 11:54 AM CDT Gender Identity Not on file Sexual Orientation Not on file documented as of this encounter Last Filed Vital Signs Vital Sign Reading Time Taken Comments Blood Pressure 122/80 07/14/2024 10:12 AM CDT Pulse 63 07/14/2024 10:12 AM CDT Temperature - - Respiratory Rate 16 07/14/2024 10:12 AM CDT Oxygen Saturation - - Inhaled Oxygen Concentration - - Weight 77.1 kg (170 lb) 07/14/2024 10:12 AM CDT Height 160 cm (5' 3 ) 07/14/2024 10:12 AM CDT Body Mass Index 30.11 07/14/2024 10:12 AM CDT documented in this encounter Ordered Prescriptions Prescription Sig Dispense Quantity Refills Last Filled Start Date End Date levothyroxine (SYNTHROID) 88 mcg tabletIndications:Po stablative hypothyroidism Take 1 tablet (88 mcg total) by mouth freight car cleaner delta system before breakfast 90 tablet 3 07/14/2024 documented in this encounter Progress Notes * Maykel Brar, Marce Brar MD - 07/14/2024 10:15 AM CDT Images from the original note were not included. [facility] ENDOCRINOLOGY Subjective/Objective Patient ID: Caro Powell is a 78 y.o. female Chief Complaint Postablative hypothyroidism HPI This patient has verbally consented to recording this visit in order to utilize AI technology in generating this note. History of Present Illness Miss Elizondo, a patient with a history of Graves' disease treated with radioactive ablation, now presents with hypothyroidism. She is currently on levothyroxine 88 micrograms daily, taken on an empty stomach, and reports adherence to this regimen. Since her last visit, she has started new medicationsincluding Jardiance and guanaphasine for blood pressure control. The patient reports a new concern of intermittent leg weakness, particularly in the late afternoon or sometimes in the morning. This weakness is significant enough to impair her ability to climb stairs. She denies any associated tingling or pins and needles sensation. She currently takes a multivitamin but no specific vitamin D or B complex supplements. In addition to the leg weakness, the patient also reports having restless legs and difficulty sleeping. She is currently on medication for restless legs, which she reports has helped to some extent. Physical Exam VITALS: BP- 122/80 CHEST: Lungs clear to auscultation. CARDIOVASCULAR: Heart sounds normal. EXTREMITIES: No tremors or shakiness in hands. Results LABS TSH: 3.4 (07/15/2023) Caro was seen today for postablative hypothyroidism. 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 Currently on levothyroxine 88 mcg daily. Reports compliance and no new complaints. - Order thyroid function tests to re-evaluate TSH levels. - Refill levothyroxine prescription at [facility] in [place]. Atrial fibrillation On Xarelto for anticoagulation. Confirms continued use. Hypertension On guanfacine, losartan, and metoprolol. Blood pressure well-controlled at 122/80 mmHg. Hyperlipidemia On simvastatin and ezetimibe. Reports good tolerance. Leg weakness Intermittent leg weakness without tingling or paresthesia. History of restless legs, on medication.Weakness may relate to knee issues or restless legs. - Advise to discuss worsening symptoms with primary care provider. - Consider checking vitamin levels if symptoms persist. Right knee osteoarthritis Plans for knee replacement. May contribute to leg weakness. General Health Maintenance Advised to consider strength training exercises for legs to improve weakness. - Encourage strength training exercises for leg muscles. Marce Brar MD documented in this encounter Plan of Treatment Not on file documented as of this encounter Results * (ABNORMAL) Thyroid Function [place] (07/14/2024 10:50 AM CDT) TSH 5.63(H) 0.30 - 4.20 mcIUnit/mL Blood 07/14/2024 10:5 0 AM CDT 07/14/2024 6:01 PM CDT us Marce Brar MD LAB BLOOD ORDERABLE S Final Result [facility] [address] Department [place] [address] documented in this encounter Visit Diagnoses Diagnosis Postablative hypothyroidism- Primary Other postablative hypothyroidism Essential hypertension Unspecified essential hypertension Mixed hyperlipidemia documented in this encounter Discontinued Medications Medication Sig Discontinue Reason Start Date End Da te hydroCHLOROthiazide 12.5 mg tablet Take 1 tablet (12.5 mg total) by mouth daily Therapy completed 10/02/2023 07/14/2024 levothyroxine (SYNTHROID) 88 mcg tabletIndications:Postabl ative hypothyroidism TAKE 1 TABLET (88 MCG TOTAL) BY MOUTH MANAGER METAL BEFORE BREAKFAST Reorder 05/19/2024 07/14/2024 documented as of this encounter Historical Medications * This list may reflect changes made after this encounter. hydroCHLOROthiazi de (HYDRODIURIL) 25 mg tablet 07/10/2024 Jardiance 10 mg tablet Take 1 tablet (10 mg total) by mouth daily 06/29/2024 added in this encounter Orders Outpatient Referral Count Last Ordered Date Fir st Ordered Date AMB REFERRAL TO ENDOCRINOLOGY 1 07/14/2024 documented in this encounter Care Teams Men'S Locker Room Attendant Relationship Specialty Start Date End Date Bonifacio Baca MD [address] [place] [address] PCP - General Emergency Medicine 09/29/23 documented as of this encounter
--- OUTSIDE RECORDS SUMMARY | 2024-07-15 16:14 | XMS_ITS | Clinical Summary ---
Author Organization [facility] Medical Office Building B Address [address] [place] [address] Care Team Providers Care Fire Pilot Name Role Phone Bonifacio Baca MD Primary Care Provide r Allergies No known active allergies Medications ezetimibe (ZETIA) 10 mg tablet 020 Active metoprolol XL (TOPROL-XL) 50 mg extended release tablet Take 1 tablet (50 mg total) by mouth daily 022 Active losartan (COZAAR) 100 mg tablet Take 1 tablet (100 mg total) by mouth daily Active rOPINIRole (REQUIP) 2 mg tablet Take 1 tablet (2 mg total) by mouth 3 (three) times a day 023 Active simvastatin (ZOCOR) 40 mg tablet Take 1 tablet (40 mg total) by mouth daily 022 Active guanFACINE (TENEX) 2 mg tabletIndications :Essential hypertension Take 1 tablet (2 mg total) by mouth nightly 30 tablet 024 2024 Active Xarelto 20 mg tablet TAKE 1 TABLET BY MOUTH DAILY WITH BREAKFAST 30 tablet 11 025 Active Jardiance 10 mg tablet Take 1 tablet (10 mg total) by mouth daily 025 Active hydroCHLOROthiazi de (HYDRODIURIL) 25 mg tablet 025 Active levothyroxine (SYNTHROID) 88 mcg tabletIndications :Postablative hypothyroidism levothyroxine 88 mcg oral 6 days a week and 1-1/2 tablet on Friday 96 tablet 3 025 Active Xarelto 20 mg tablet TAKE 1 TABLET BY MOUTH DAILY WITH BREAKFAST 30 tablet 11 024 2024 Discontinued hydroCHLOROthiazi de 12.5 mg tablet Take 1 tablet (12.5 mg total) by mouth daily 30 tablet 11 024 2024 Discontinued(T herapy completed) levothyroxine (SYNTHROID) 88 mcg tabletIndications :Postablative hypothyroidism TAKE 1 TABLET (88 MCG TOTAL) BY MOUTH ORTHOPEDIC NURSE PRACTITIONER BEFORE BREAKFAST 90 tablet 3 025 2024 Discontinued(R eorder) levothyroxine (SYNTHROID) 88 mcg tabletIndications :Postablative hypothyroidism Take 1 tablet (88 mcg total) by mouth filler spreader before breakfast 90 tablet 3 025 2024 Discontinued(R eorder) Active Problems Problem Noted Date Diagnosed Date Asymptomatic PVCs 04/19/2024 PAF (paroxysmal atrial fibrillation) 09/29/2023 Palpitations 05/06/2022 Abdominal aortic aneurysm (AAA) [...] Encounters Date Type Department Care Team Description 07/15/2024 Results Follow-Up [facility] Specialists of [address] [phone] Marce Chappell MD Postablative hypothyroidism 07/14/2024 10:30 AM CDT Lab [address] [address] Postablative hypothyroidism 07/14/2024 10:15 AM CDT Office Visit [facility] [address] [facility] [address] [place] [phone] Marce Chappell MD Postablative hypothyroidism (Primary Dx); Essential hypertension; Mixed hyperlipidemia 07/13/2024 Telephone [facility] Diabetes and Endocrinology [address] [place] [phone] Marce Chappell MD request to pcp for insurance referral 05/27/2024 Telephone [facility] Cardiology [address] [place] [address] Rowan Salcedo MD 05/07/2024 Orders Only [facility] Health Information Management [address] [place] [address] Rowan Salcedo MD 04/19/2024 10:00 AM WOODEN FENCE ERECTOR Office Visit [facility] Cardiology [address] [facility] [address] [place] [address] Rowan Salcedo MD PAF (paroxysmal atrial fibrillation) (HCC) (Primary Dx); CHRISTIAN (dyspnea on exertion); Infrarenal abdominal aortic aneurysm (AAA) without rupture; Nonrheumatic aortic valve stenosis; Mixed hyperlipidemia; Essential hypertension; Asymptomatic PVCs from Last 3 Months Surgical History Surgery [...] Pulse 63 07/14/2024 10:12 AM CDT Temperature 36.2 C (97.1 F) 03/15/2020 1:55 PM WOODEN FENCE ERECTOR Respiratory Rate 16 07/14/2024 10:12 AM CDT Oxygen Saturation 99% 04/19/2024 9:54 AM WOODEN FENCE ERECTOR Inhaled Oxygen Concentration - - Weight 77.1 kg (170 lb) 07/14/2024 10:12 AM CDT Height 160 cm (5' 3 ) 07/14/2024 10:12 AM CDT Body Mass Index 30.11 07/14/2024 10:12 AM CDT Plan of Treatment Health Maintenance Due Date [...] Procedure Name Priority Date/Time Associated Diagnosis Comments T4, FREE Routine 07/14/2024 10:50 AM CDT Postablative hypothyroidism THYROID FUNCTION CASCADE Routine 07/14/2024 10:50 AM CDT Postablative hypothyroidism SCAN - RADIOLOGY/IMAGING 05/07/2024 from Last 3 Months Results * (ABNORMAL) Thyroid Function [place] (07/14/2024 10:50 AM CDT) TSH 5.63(H) 0.30 - 4.20 mcIUnit/mL Blood 07/14/2024 10:5 0 AM CDT 07/14/2024 6:01 PM CDT us Marce Brar MD LAB BLOOD ORDERABLE S Final Result [facility] [address] [address] Department [place] [address] * T4, free (07/14/2024 10:50 AM CDT) Free T4 1.43 0.90 - 1.70 ng/dL Blood 07/14/2024 10:5 0 AM CDT 07/14/2024 6:09 PM CDT us Marce Brar MD LAB BLOOD ORDERABLE S Final Result Performing Organization Address City/State/ZIP [place] Phone Number [facility] [address] [address] Department [place] [address] * SCAN - RADIOLOGY/IMAGING (05/07/2024) Anatomical Region Laterality Modality Other us Rowan chacko Result from Last 3 Months Insurance [facility] MEDICARE MEDICARE Care Teams Fire Pilot Relationship Specialty Start Date End Date Bonifacio Baca MD [address] [place] [address] PCP - General Emergency Medicine 09/29/23
--- OUTSIDE RECORDS SUMMARY | 2024-07-15 16:14 | XMS_ITS | Clinical Summary ---
Author Organization [facility] Address [address] [place] [address] Care Team Providers Care Bone Process Operator Name Role Phone Bonifacio Baca MD Primary Care Provider [phone] Allergies No known active allergies Social History [...] age to complete this topic Insurance MEDICARE [facility] Care Teams Bone Process Operator Relationship Specialty Start Date End Date Bonifacio Baca MD [address] [place] [address] PCP - General INTERNAL MEDICINE 07/06/21
--- OUTSIDE RECORDS SUMMARY | 2024-07-15 16:14 | XMS_ITS | Encounter Summary ---
Author Organization [facility] Healthcare Address [address] [place] [address] Care Team Providers Care Chief Financial Officer Name Role Phone Bonifacio Baca MD Primary Care Provide r Encounter Details Date Type Department Care Team (Latest Contact Info) Description 07/15/2024 Results Follow-Up [facility] [address] [place] [phone] [place] [id number] [place] [address] Postablative hypothyroidism Social History Tobacco Use Types Packs/Day Years Used Date Smoking Tobacco: Former Smokeless Tobacco: Never Comments Unknown Sex and Gender Information Value Date Recorded Sex Assigned at Not on file Legal Sex Female 11:54 AM CDT Gender Identity Not on file Sexual Orientation Not on file documented as of this encounter Ordered Prescriptions Prescription Sig Dispense Quantity Refills Last Filled Start Date End Date levothyroxine (SYNTHROID) 88 mcg tabletIndications:P ostablative hypothyroidism levothyroxine 88 mcg oral 6 days a week and 1-1/2 tablet on Friday 96 tablet 3 documented in this encounter Miscellaneous Notes * Telephone Encounter - Barby Douglas LPN - 07/15/2024 9:18 AM CDT Pt is aware of dose changes. documented in this encounter Plan of Treatment Not on file documented as of this encounter Visit Diagnoses Diagnosis Postablative hypothyroidism Other postablative hypothyroidism documented in this encounter Discontinued Medications Medication Sig Discontinue Reason Start Date End Da te levothyroxine (SYNTHROID) 88 mcg tabletIndications:Postabl ative hypothyroidism Take 1 tablet (88 mcg total) by mouth quiller runner before breakfast Reorder 07/14/2024 07/15/2024 documented as of this encounter Care Teams Chief Financial Officer Relationship Specialty Start Date End Date Bonifacio Baca MD [address] [place] [address] PCP - General Emergency Medicine 09/29/23 documented as of this encounter
--- OUTSIDE RECORDS SUMMARY | 2024-07-15 16:14 | XMS_ITS | Referral Summary ---
Author Organization [facility] Medical Office Building B Address [address] [place] [address] Care Team Providers Care Investment Broker Name Role Phone Bonifacio Baca MD Primary Care Provide r Encounters Date Type Department Care Team Description 07/15/2024 Results Follow-Up [facility] Specialists of [address] [address] Marce Chappell MD Postablative hypothyroidism 07/14/2024 10:30 AM CDT Lab [address] [address] Postablative hypothyroidism 07/14/2024 10:15 AM CDT Office Visit [facility] Specialists of [address] [address] Marce Chappell MD Postablative hypothyroidism (Primary Dx); Essential hypertension; Mixed hyperlipidemia 07/13/2024 Telephone [facility] Diabetes and Endocrinology [facility] [place] [address] Marce Chappell MD request to pcp for insurance referral 05/27/2024 Telephone [facility] Cardiology [address] [facility] [address] [place] [address] Rowan Salcedo MD 05/07/2024 Orders Only [facility] Health Information Management [address] [place] [address] Rowan Salcedo MD 04/19/2024 10:00 AM FNPS Office Visit [facility] Cardiology [address] [place] [address] Rowan Salcedo MD PAF (paroxysmal atrial fibrillation) (HCC) (Primary Dx); CHRISTIAN (dyspnea on exertion); Infrarenal abdominal aortic aneurysm (AAA) without rupture; Nonrheumatic aortic valve stenosis; Mixed hyperlipidemia; Essential hypertension; Asymptomatic PVCs from Last 3 Months Allergies No known [...] BY MOUTH DAILY WITH BREAKFAST 30 tablet 024 2024 Discontinued hydroCHLOROthiazi de 12.5 mg tablet Take 1 tablet (12.5 mg total) by mouth daily 30 tablet 024 2024 Discontinued(T herapy completed) levothyroxine (SYNTHROID) 88 mcg tabletIndications :Postablative hypothyroidism TAKE 1 TABLET (88 MCG TOTAL) BY MOUTH PLATE MILL MILL HAND BEFORE BREAKFAST 90 tablet 3 025 2024 Discontinued(R eorder) levothyroxine (SYNTHROID) 88 mcg tabletIndications :Postablative hypothyroidism Take 1 tablet (88 mcg total) by mouth epilepsy physician before breakfast 90 tablet 3 025 2024 [...] 36.2 C (97.1 F) 03/15/2020 1:55 PM FNPS Respiratory Rate 16 07/14/2024 10:12 AM CDT Oxygen Saturation 99% 04/19/2024 9:54 AM FNPS Inhaled Oxygen Concentration - - Weight 77.1 kg (170 lb) 07/14/2024 10:12 AM CDT Height 160 cm (5' 3 ) 07/14/2024 10:12 AM CDT Body Mass Index 30.11 07/14/2024 10:12 AM CDT Plan of Treatment Not on file Procedures Procedure Name Priority Date/Time Associated Diagnosis Comments T4, FREE Routine 07/14/2024 10:50 AM CDT Postablative hypothyroidism THYROID FUNCTION CASCADE Routine 07/14/2024 10:50 AM CDT Postablative hypothyroidism SCAN - RADIOLOGY/IMAGING 05/07/2024 from Last 3 Months Results * (ABNORMAL) Thyroid Function [place] (07/14/2024 10:50 AM CDT) TSH 5.63(H) 0.30 - 4.20 mcIUnit/mL Blood 07/14/2024 10:5 0 AM CDT 07/14/2024 6:01 PM CDT us Marce Brar MD LAB BLOOD ORDERABLE S Final Result Performing Organization Address [facility] [place] [address] [place] [address] * T4, free (07/14/2024 10:50 AM CDT) Free T4 1.43 0.90 - 1.70 ng/dL Blood 07/14/2024 10:5 0 AM CDT 07/14/2024 6:09 PM CDT us Marce Brar MD LAB BLOOD ORDERABLE S Final Result Performing Organization Address [facility] [place] [address] Alyssa Gudino [facility] [address] [place], [place] [phone] * SCAN - RADIOLOGY/IMAGING (05/07/2024) Anatomical Region Laterality Modality Other Rowan chacko Result from Last 3 Months Insurance [employer] MEDICARE MEDICARE [facility] Address: [facility] [address] [place] [address] Care Teams Investment Broker Relationship Specialty Start Date End Date Bonifacio Baca MD [address] [place], [place] [phone] PCP - General Emergency Medicine 09/29/23
--- OUTSIDE RECORDS SUMMARY | 2024-07-15 16:14 | XMS_ITS | Encounter Summary ---
Author Organization [facility] Healthcare Address [address] [place] [address] Care Team Providers Care Dope Edger Name Role Phone Bonifacio Baca MD Primary Care Provide r Encounter Details Date Type Department Care Team (Late st Contact Info) Description 07/14/2024 10:30 AM CDT Lab [address] [address] Postablative hypothyroidism Social History Tobacco Use Types Packs/Day Years Used Date Smoking Tobacco: Former Smokeless Tobacco: Never Comments Unknown Sex and Gender Information Value Date Recorded Sex Assigned at Not on file Legal Sex Female 11:54 AM CDT Gender Identity Not on file Sexual Orientation Not on file documented as of this encounter Plan of Treatment Not on file documented as of this encounter Procedures Procedure Name Priority Date/Time Associated Diagnosis Comments THYROID FUNCTION CASCADE Routine 07/14/2024 10:50 AM CDT Postablative hypothyroidism T4, FREE Routine 07/14/2024 10:50 AM CDT Postablative hypothyroidism documented in this encounter Results * T4, free (07/14/2024 10:50 AM CDT) Free T4 1.43 0.90 - 1.70 ng/dL Blood 07/14/2024 10:5 0 AM CDT 07/14/2024 6:09 PM CDT Marce Brar MD LAB [place]LO[place] [address] [address] [place] [address] * (ABNORMAL) Thyroid Function [place] (07/14/2024 10:50 AM CDT) TSH 5.63(H) 0.30 - 4.20 mcIUnit/mL Blood 07/14/2024 10:5 0 AM CDT 07/14/2024 6:01 PM CDT us Marce Brar MD LAB BLOOD ORDERABLE S Final Result Performing Organization Address City/[facility] Co de Phone Number [place] [address] [address] [place] [address] documented in this encounter Visit Diagnoses Diagnosis Postablative hypothyroidism Other postablative hypothyroidism documented in this encounter Care Teams Dope Edger Relationship Specialty Start Date End Date Bonifacio Baca MD [address] [place] [address] PCP - General Emergency Medicine 09/29/23 documented as of this encounter
== END 2024-07-15 15:21 | disposition home or self-care (01) ==
LOC: ANHIMG 15:26
PROVIDERS: PCP Emergency Medicine; Visit Provider Emergency Medicine
DX: M85.852 Other specified disorders of bone density and structure, left thigh (principal); E55.9 Vitamin D deficiency, unspecified; Z78.0 Asymptomatic menopausal state
CPT/HCPCS: 77080

== ENCOUNTER 2024-07-28 11:07 | Outpatient (CLI) | payer MEDICARE, SELFPAY ==
--- NOTE | 2024-07-28 12:05 | ECG_ITS ---
Test Date: 2024-07-28 12:22:26 Measurements Intervals [place] Rate: 62 P: 23 ND: 216 QRS: -2 QRSD: 67 T: 51 QT: 411 QTc: 418 Interpretive Statements SINUS RHYTHM WITH FIRST DEGREE AV BLOCK INFERIOR INFARCT, AGE INDETERMINATE EXTENSIVE ANTERIOR INFARCT, AGE INDETERMINATE BORDERLINE ST-T WAVE ABNORMALITY- HIGH LATERAL LEADS BASELINE ARTIFACT- I, II, III, AVR, AVL, AVF, V4-V6 ABNORMAL ECG No previous ECG available for comparison Electronically Signed On 07-28-2024 13:33:16 CDT by Maynor Anderson D.O.
[2024-07-28 12:36] LABS: Basophils Absolute Auto 0.1 K/mm3 (0.0-0.1); Basophils Percent Auto 0.7 % (0.2-1.2); Eosinophils Absolute Auto 0.2 K/mm3 (0-0.3); Eosinophils Percent Auto 2.9 % (0-4.4); Hematocrit 38.8 % (37.0-47.0); Hemoglobin 12.2 g/dL (12.0-15.0); Immature Granulocyte Absolute 0.02 K/mm3 (0.00-0.031); Immature Granulocyte Percent A 0.3 % (0-0.5); Lymphocytes Absolute Auto 1.84 K/mm3 (0.9-3.2); Lymphocytes Percent Auto 27.1 % (18.3-44.2); Mean Corpuscular HGB Conc 31.4 g/dl (32-36); Mean Corpuscular Volume 92.2 fl (80-100); Mean Platelet Volume 11.4 fl (7.4-10.4); Monocytes Absolute Auto 0.7 K/mm3 (0.1-0.6); Monocytes Percent Auto 10.6 % (2.6-8.5); Neutrophils Percent Auto 58.4 % (45.5-73.1); Platelet Count Result 194 k/mm3 (150-375); Red Blood Count 4.21 M/mm3 (4.2-5.4); Red Cell Distribution Width 14.3 % (11.5-14.5); White Blood Count 6.8 K/mm3 (4.5-10.0)
[2024-07-28 12:47] LABS: INR 2.3; Prothrombin Time 26.1 Seconds (11.1-14.7)
--- OUTSIDE RECORDS SUMMARY | 2024-07-28 12:58 | XMS_ITS | Encounter Summary ---
Author Organization [facility] Healthcare Address [address] [place] [address] Care Team Providers Care Insurance Office Supervisor Name Role Phone Bonifacio Baca MD Primary Care Provide r Encounter Details Date Type Department Care Team (Late st Contact Info) Description 07/22/2024 Telephone [facility] Group Cardiology [address] [place] [address] Rowan Salcedo MD [address] [place] [address] Social History Tobacco Use Types Packs/Day Years Used Date Smoking Tobacco: Former Smokeless Tobacco: Never Comments Unknown Sex and Gender Information Value Date Recorded Sex Assigned at Not on file Legal Sex Female 11:54 AM CDT Gender Identity Not on file Sexual Orientation Not on file documented as of this encounter Miscellaneous Notes * Telephone Encounter - Kavita Grant MA - 07/22/2024 3:02 PM CDT Spoke with [facility] and it went through her insurance on 07/13/24 with no problem. Spoke with pt and shestates she received a letter from insurance and will drop off letter to us next week * Telephone Encounter - Berta Richardson - 07/22/2024 11:50 AM CDT Pt states PA is required for guanFACINE (TENEX) 2 mg. # for PA: [phone] CB: [phone] documented in this encounter Plan of Treatment Not on file documented as of this encounter Visit Diagnoses Not on filedocumented in this encounter Care Teams Insurance Office Supervisor Relationship Specialty Start Date End Date Bonifacio Baca MD [address] [place] [address] PCP - General Emergency Medicine 09/29/23 documented as of this encounter
--- OUTSIDE RECORDS SUMMARY | 2024-07-28 12:58 | XMS_ITS | Referral Summary ---
Author Organization [facility] Medical Office Building B Address [address] [place] [address] Care Team Providers Care Correctional Therapy Director Name Role Phone Bonifacio Baca MD Primary Care Provide r Encounters Date Type Department Care Team Description 07/28/2024 Telephone [facility] Medical [facility] Cardiology [address] [place] [phone] Rowan Salcedo MD 07/27/2024 Telephone [facility] Cardiology [address] [place] [phone] Rowan Salcedo MD 07/22/2024 Telephone [facility] Cardiology [address] [facility] [address] [place] [phone] Rowan Salcedo MD 07/15/2024 Results Follow-Up [facility] Special[facility] of [address] [place] [address] Marce Chappell MD Postablative hypothyroidism 07/14/2024 10:30 AM CDT Lab [address] [address] Postablative hypothyroidism 07/14/2024 10:15 AM CDT Office [facility] Special[facility] of [address] [address] Marce Chappell MD Postablative hypothyroidism (Primary Dx); Essential hypertension; Mixed hyperlipidemia 07/13/2024 Telephone [facility] Medical Group Diabetes and Endocrinology [address] [place] [address] Marce Chappell MD request to pcp for insurance referral 05/27/2024 Telephone [facility] Medical Group Cardiology [address] [place] [address] Rowan Salcedo MD 05/07/2024 Orders Only [facility] Health Information Management [address] [place] [address] Rowan Salcedo MD from Last 3 Months Allergies No known [...] 1 TABLET (88 MCG TOTAL) BY MOUTH DIRECTOR OPERATIONS BROADCAST BEFORE BREAKFAST 90 tablet 3 025 2024 Discontinued(R eorder) levothyroxine (SYNTHROID) 88 mcg tabletIndications :Postablative hypothyroidism Take 1 tablet (88 mcg total) by mouth early childhood before breakfast 90 tablet 3 025 2024 [...] 36.2 C (97.1 F) 03/15/2020 1:55 PM [facility] Respiratory Rate 16 07/14/2024 10:12 AM CDT Oxygen Saturation 99% 04/19/2024 9:54 AM [facility] Inhaled Oxygen Concentration - - Weight 77.1 [...] 3 Months Results * (ABNORMAL) Thyroid Function [place] (07/14/2024 10:50 AM CDT) TSH 5.63(H) 0.30 - 4.20 mcIUnit/mL Blood 07/14/2024 10:5 0 AM CDT 07/14/2024 6:01 PM CDT us Marce Brar MD LAB BLOOD ORDERABLE S Final Result Performing Organization Address City/[facility]/ZIP Co de Phone Number [place] [address] Alyss[address] Gudino [email or web address] [place], [place] [id number] * T4, free (07/14/2024 10:50 AM CDT) Free T4 1.43 0.90 - 1.70 ng/dL Blood 07/14/2024 10:5 0 AM CDT 07/14/2024 6:09 PM CDT Marce Brar MD LAB BLOOD ORDERABLE S Final Result [place] [address] Alyss[address]udino [facility] [place] [address] * SCAN - RADIOLOGY/IMAGING (05/07/2024) Anatomical Region Laterality Modality Other us Rowan chacko Result from Last 3 Months Insurance T MEDICARE MEDICARE Care Teams Correctional Therapy Director Relationship Specialty Start Date End Date Bonifacio Baca MD [address] [place] [address] PCP - General Emergency Medicine 09/29/23
--- OUTSIDE RECORDS SUMMARY | 2024-07-28 12:58 | XMS_ITS | Encounter Summary ---
Author Organization [facility] Healthcare Address [address] [place] [address] Care Team Providers Care Block Paver Name Role Phone Bonifacio Baca MD Primary Care Provide r Encounter Details Date Type Department Care Team (Late st Contact Info) Description 07/28/[address] [facility] Medical Group Cardiology [address] [place] [address] Rowan Salcedo MD [address] [place] [address] Social History Tobacco Use Types Packs/Day Years Used Date Smoking Tobacco: Former Smokeless Tobacco: Never Comments Unknown Sex and Gender Information Value Date Recorded Sex Assigned at Not on file Legal Sex Female 11:54 AM CDT Gender Identity Not on file Sexual Orientation Not on file documented as of this encounter Miscellaneous Notes * Telephone Encounter - Kavon Vidal RN - 07/28/2024 12:11 PM CDT LM informing preop testing that clearance had been reprinted and xarelto hold will be addressed next week when JF returns to office. * Telephone Encounter - Berta Richardson - 07/28/2024 11:29 AM CDT PAT dept at called states pt is scheduled for surgery on 08/23 and wants to know when to stop Xarelto. They received the cardiac clearance back but JF did not give instructions regarding blood thinner. Please advise, thank you. Contact: documented in this encounter Plan of Treatment Not on file documented as of this encounter Visit Diagnoses Not on filedocumented in this encounter Care Teams Block Paver Relationship Specialty Start Date End Date Bonifacio Baca MD [address] [place] [address] PCP - General Emergency Medicine 09/29/23 documented as of this encounter
--- OUTSIDE RECORDS SUMMARY | 2024-07-28 12:58 | XMS_ITS | Encounter Summary ---
Author Organization [facility] Healthcare Address [address] [place] [address] Care Team Providers Care Dog Breeder Name Role Phone oBnifacio Baca MD Primary Care Provide r Encounter Details Date Type Department Care Team (Late st Contact Info) Description 07/27/2024 Telephone [facility] Medical Group Cardiology [address] [place] [address] Rowan Salcedo MD [address] [place] [address] Social History Tobacco Use Types Packs/Day Years Used Date Smoking Tobacco: Former Smokeless Tobacco: Never Comments Unknown Sex and Gender Information Value Date Recorded Sex Assigned at Not on file Legal Sex Female 11:54 AM CDT Gender Identity Not on file Sexual Orientation Not on file documented as of this encounter Miscellaneous Notes * Telephone Encounter - Haleigh Francois MA - 07/28/2024 7:45 AM CDT Faxed requested documents to [phone] * Telephone Encounter - Berta Richardson - 07/27/2024 4:02 PM CDT Sameera from PAT dept at requesting most recent office visit note, EKG, and Echo be faxed to [facility]. Thank you. Contact:[phone] documented in this encounter Plan of Treatment Not on file documented as of this encounter Visit Diagnoses Not on filedocumented in this encounter Care Teams Dog Breeder Relationship Specialty Start Date End Date Bonifacio Baca MD [address] [place] [address] PCP - General Emergency Medicine 09/29/23 documented as of this encounter
--- OUTSIDE RECORDS SUMMARY | 2024-07-28 12:58 | XMS_ITS | Clinical Summary ---
Author Organization [facility] Medical Office Building B Address [address] [place] [address] Care Team Providers Care Telegraphic Instrument Supervisor Name Role Phone Bonifacio Baca MD [...] 1 TABLET (88 MCG TOTAL) BY MOUTH ACCOUNTING ADVISORY SERVICES MANAGER BEFORE BREAKFAST 90 tablet 3 025 2024 Discontinued(R eorder) levothyroxine (SYNTHROID) 88 mcg tabletIndications :Postablative hypothyroidism Take 1 tablet (88 mcg total) by mouth cdl dedicated truck driver before breakfast 90 tablet 3 025 2024 [...] Type Department Care Team Description 07/28/2024 Telephone [facility] Medical [facility] Cardiology [address] [facility] [address] [place] [address] Rowan Salcedo MD 07/27/2024 Telephone [facility] Cardiology [address] [place] [address] Rowan Salcedo MD 07/22/2024 Telephone [facility] Cardiology [address] [place] [address] Rowan Salcedo MD 07/15/2024 Results Follow-Up [facility] Specialists of [address] [address] Marce Chappell MD Postablative hypothyroidism 07/14/2024 10:30 AM CDT Lab [address] [address] Postablative hypothyroidism 07/14/2024 10:15 AM CDT Office Visit [facility] Specialists of [address] [place] [phone] Marce Chappell MD Postablative hypothyroidism (Primary Dx); Essential hypertension; Mixed hyperlipidemia 07/13/2024 Telephone [facility] Medical Group Diabetes and Endocrinology [address] [place] [phone] Marce Chappell MD request to pcp for insurance referral 05/27/2024 Telephone [facility] Medical Group Cardiology [address] [facility] [address] [place] [phone] Rowan Salcedo MD 05/07/2024 Orders Only [facility] Health Information Management [address] [place] [address] Rowan Salcedo MD from Last 3 Months Surgical History Surgery [...] 36.2 C (97.1 F) 03/15/2020 1:55 PM MED SPA MANAGER Respiratory Rate 16 07/14/2024 10:12 AM CDT Oxygen Saturation 99% 04/19/2024 9:54 AM MED SPA MANAGER Inhaled Oxygen Concentration - - Weight 77.1 [...] of 2) 1994 Well Visit 65+ 2009 Fall Risk Assessment 07/14/2024 07/15/2023 Influenza Vaccine (Season Ended) 2024 02/24/2019, 02/13/2018, 03/25/2017, Additional history exists Pneumococcal vaccine 65+ Completed 03/25/2017, 03/21 Procedures Procedure Name Priority Date/Time Associated Diagnosis Comments T4, FREE Routine 07/14/2024 10:50 AM CDT Postablative hypothyroidism THYROID FUNCTION CASCADE Routine 07/14/2024 10:50 AM CDT Postablative hypothyroidism SCAN - RADIOLOGY/IMAGING 05/07/2024 from Last 3 Months Results * (ABNORMAL) Thyroid Function [place] (07/14/2024 10:50 AM CDT) TSH 5.63(H) 0.30 - 4.20 mcIUnit/mL Blood 07/14/2024 10:5 0 AM CDT 07/14/2024 6:01 PM CDT us Marce Brar MD LAB BLOOD ORDERABLE S Final Result ARTI [address] [address] [place] [address] * T4, free (07/14/2024 10:50 AM CDT) Free T4 1.43 0.90 - 1.70 ng/dL Blood 07/14/2024 10:5 0 AM CDT 07/14/2024 6:09 PM CDT us Marce Brar MD LAB [place] [address] [address] Department [place] [address] * SCAN - RADIOLOGY/IMAGING (05/07/2024) Anatomical Region Laterality Modality Other us Rowan chacko Result from Last 3 Months Insurance [facility] MEDICARE MEDICARE Care Teams Telegraphic Instrument Supervisor Relationship Specialty Start Date End Date Bonifacio Baca MD [address] [place] [address] PCP - General Emergency Medicine 09/29/23
--- OUTSIDE RECORDS SUMMARY | 2024-07-28 12:58 | XMS_ITS | Clinical Summary ---
Author Organization [facility] Address [address] [place] [address] Care Team Providers Care Scrap Hooker Name Role Phone Bonifacio Baca MD Primary Care Provider [phone] Allergies No known active allergies Social History [...] C 1962 DTaP, Tdap and Td Vaccines ( 1 - Tdap) 12/05/1963 Zoster Vaccines (1 of 2) 1994 Annual Medicare Wellness Visit 2009 Dexa Scan (General) 2009 RSV Immunization or 60+ Years (1 - 1-dose 75+ series) 12/05/2019 COVID-19 Vaccine ( - 2023-2 5 season) 2023 03/05/2021, 06/13/2020, 05/16/2020 Pneumococcal Vaccine: 65+ Years Completed 03/25/2017, 04/04/2015 Meningococcal B Vaccine Aged Out No l onger eligible based on patient's age to complete this topic Meningococcal Vaccine Aged Out No reyes moon eligible based on patient's age to complete this topic RSV Immunizations Under 20 Months Aged Out No longer eligible b ased on patient's age to complete this topic Insurance MEDICARE [facility] Care Teams Scrap Hooker Relationship Specialty Start Date End Date Bonifacio Baca MD [address] [place] [address] PCP - General INTERNAL MEDICINE 07/06/21
[2024-07-28 13:44] LABS: Albumin Level 4.7 g/dL (3.5-5.1)
[2024-07-28 13:47] LABS: Anion Gap 13 mmol/L (4-12); Blood Urea Nitrogen 34 mg/dL (7-17); Calcium 9.5 mg/dL (8.4-10.2); Carbon Dioxide 27 mmol/L (22-30); Chloride 97 mmol/L (98-107); Estimated Glomerular Filt Rate 30; Glucose 87 mg/dL (65-110); Potassium 3.9 mmol/L (3.4-5.0); Sodium 137 mmol/L (137-145)
[2024-07-28 13:56] LABS: Urine Cotinine NEGATIVE
[2024-07-28 16:05] LABS: MRSA (PCR) DETECTED (NOT DETECTE)
== END 2024-07-28 11:08 | disposition home or self-care (01) ==
LOC: ANHSURGERY 11:15
PROVIDERS: Anesthesiology; PCP Emergency Medicine; Visit Provider Orthopaedic Surgery
DX: Z01.818 Encounter for other preprocedural examination (principal); M17.12 Unilateral primary osteoarthritis, left knee; N18.32 Chronic kidney disease, stage 3b; I44.0 Atrioventricular block, first degree; R94.31 Abnormal electrocardiogram [ECG] [EKG]; I10 Essential (primary) hypertension; E78.5 Hyperlipidemia, unspecified; E03.9 Hypothyroidism, unspecified
CPT/HCPCS: 36415; 80048; 80307; 82040; 83036; 85025; 85610; 85730; 87641; 93005

== ENCOUNTER 2024-08-03 10:46 | Outpatient (CLI) | payer MEDICARE, SELFPAY ==
--- NOTE | ~2024-08-03 | XR_ITS ---
AP and lateral views of the right hip Clinical history: Pain Findings: No acute fracture or dislocation is seen. Osseous alignment is anatomic. Right hip joint is intact. Soft tissues are unremarkable. Impression: No significant abnormality is seen. Reviewed, dictated and finalized at location M. Impression: No significant abnormality is seen.
--- OUTSIDE RECORDS SUMMARY | 2024-08-03 12:01 | XMS_ITS | Encounter Summary ---
Author Organization [facility] Healthcare Address [address] [place] [address] Care Team Providers Care Tire Retreader Name Role Phone Bonifacio Baca MD Primary Care Provide r Encounter Details Date Type Department Care Team (Late st Contact Info) Description 07/27/[address] [facility] Medical Group Cardiology [address] [place] [address] Rowan Salcedo MD [address] [place] [address] Social History Tobacco Use Types Packs/Day [...] 7:45 AM CDT Faxed requested documents to [phone] * Telephone Encounter - Berta Richardson - 07/27/2024 4:02 PM CDT Sameera from PAT dept at requesting most recent office visit note, EKG, and Echo be faxed to [email or web address]. Thank you. Contact:[phone] documented in this encounter Plan of Treatment Not on file documented as of this encounter Visit Diagnoses Not on filedocumented in this encounter Care Teams Tire Retreader Relationship Specialty Start Date End Date Bonifacio Baca MD [address] [place] [address] PCP - General Emergency Medicine 09/29/23 documented as of this encounter
--- OUTSIDE RECORDS SUMMARY | 2024-08-03 12:01 | XMS_ITS | Encounter Summary ---
Author Organization [facility] Healthcare Address [address] [place] [address] Care Team Providers Care Administrative Asst Name Role Phone Bonifacio Baca MD Primary Care Provide r Encounter Details Date Type Department Care Team (Late st Contact Info) Description 07/22/2024 Telephone [facility] Medical Group Cardiology [address] [place] [address] Rowan Salcedo MD [address] [place] [address] Social History Tobacco Use Types Packs/Day Years Used Date Smoking Tobacco: Former Smokeless Tobacco: Never Comments Unknown Sex and Gender Information Value Date Recorded Sex Assigned at Not on file Legal Sex Female 11:54 AM CDT Gender Identity Not on file Sexual Orientation Not on file documented as of this encounter Miscellaneous Notes * Telephone Encounter - Kavita Grant MA - 07/28/2024 3:41 PM CDT Approved and pt notified * Telephone Encounter - Kavita Grant MA - 07/28/2024 3:25 PM CDT Images from the original note were not included. Letter scanned CARLOS EDUARDO DAMON (Nunes: [email or web address]) Your information has been submitted to [employer]. [employer] will review the request and will issue a decision, typically within 1-3 days from your submission. You can check the updated outcome later by reopening this request. If [employer] has not responded in 1-3 days or if you have any questions about your ePA request, please contact [facility] at [phone]. If you think there may be a problem with your PA request, use our live chat feature at the bottom right. CloseReturn to Dashboard * Telephone Encounter - Kavita Grant MA [...] guanFACINE (TENEX) 2 mg. # for PA: [phone] CB: [phone] documented in this encounter Plan of Treatment Not on file documented as of this encounter Visit Diagnoses Not on filedocumented in this encounter Care Teams Administrative Asst Relationship Specialty Start Date End Date Bonifacio Baca MD [address] [place] [address] PCP - General Emergency Medicine 09/29/23 documented as of this encounter
--- OUTSIDE RECORDS SUMMARY | 2024-08-03 12:01 | XMS_ITS | Referral Summary ---
Author Organization [facility] Medical Office Building B Address [address] [place] [address] Care Team Providers Care Sheet Metal Journeyman Name Role Phone Bonifacio Baca MD Primary Care Provide r Encounters Date Type Department Care Team Description 07/28/[address] [facility] Cardiology [address] [place] [phone] Rowan Salcedo MD 07/27/2024 Telephone [facility] Cardiology [address] [place] [phone] Rowan Salcedo MD 07/22/2024 Telephone [facility] Cardiology [address] [place] [phone] Rowan Salcedo MD 07/15/2024 Results [facility] Specialists of [address] [place] [address] Marce Chappell MD Postablative hypothyroidism 07/14/2024 10:30 AM CDT Lab [address] [address] Postablative hypothyroidism 07/14/2024 10:15 AM CDT Office [facility] Specialists of [address] [address] Marce Chappell MD Postablative hypothyroidism (Primary Dx); Essential hypertension; Mixed hyperlipidemia 07/13/[address] [facility] Medical Group Diabetes and Endocrinology [address] [place] [address] Marce Chappell MD request to pcp for insurance referral 05/27/[address] [facility] Medical Group Cardiology [address] [place] [address] Rowan Salcedo MD 05/07/2024 Orders Only [facility] Health Information Management [address] [place] [address] Rowan Salcedo MD from Last 3 Months [...] total) by mouth daily 02/15/20 22 Active guanFACINE (TENEX) 2 mg tabletIndications :Essential hypertension Take 1 tablet (2 mg total) by mouth nightly 30 tablet 09/29/19 24 025 Active Xarelto 20 mg tablet TAKE 1 TABLET BY MOUTH DAILY WITH BREAKFAST 30 tablet 11 06/30/19 25 Active Jardiance 10 mg tablet Take 1 tablet (10 mg total) by mouth daily 06/30/19 25 Active hydroCHLOROthiazi de (HYDRODIURIL) 25 mg tablet 07/11/19 25 Active levothyroxine (SYNTHROID) 88 mcg tabletIndications :Postablative hypothyroidism levothyroxine 88 mcg oral 6 days a week and 1-1/2 tablet on Friday 96 tablet 3 07/16/19 25 Active hydroCHLOROthiazi de 12.5 mg tablet Take 1 tablet (12.5 mg total) by mouth daily 30 tablet 11 10/02/19 24 025 Discontin ued(Thera py completed ) levothyroxine (SYNTHROID) 88 mcg tabletIndications :Postablative hypothyroidism TAKE 1 TABLET (88 MCG TOTAL) BY MOUTH JUICE STANDARDIZER BEFORE BREAKFAST 90 tablet 3 05/19/19 25 025 Discontin ued(Reord er) levothyroxine (SYNTHROID) 88 mcg tabletIndications :Postablative hypothyroidism Take 1 tablet (88 mcg total) by mouth integration aide before breakfast 90 tablet 3 07/15/19 25 025 Discontin ued(Reord er) Active Problems Problem Noted Date Diagnosed Date [...] 36.2 C (97.1 F) 03/15/2020 1:55 PM CLOTH COVERER Respiratory Rate 16 07/14/2024 10:12 AM CDT Oxygen Saturation 99% 04/19/2024 9:54 AM CLOTH COVERER Inhaled Oxygen Concentration - - Weight 77.1 [...] 3 Months Results * (ABNORMAL) Thyroid Function [place] (07/14/2024 10:50 AM CDT) TSH 5.63(H) 0.30 - 4.20 mcIUnit/mL Blood 07/14/2024 10:5 0 AM CDT 07/14/2024 6:01 PM CDT us Marce Brar MD LAB BLOOD ORDERABLE S Final Result Performing Organization Address [facility]/ZIP Co de Phone Number ARTI [id number] [address] [place] [place] [address] * T4, free (07/14/2024 10:50 AM CDT) Free T4 1.43 0.90 - 1.70 ng/dL Blood 07/14/2024 10:5 0 AM CDT 07/14/2024 6:09 PM CDT us Marce Brar MD LAB [place]LOOD [place] [id number] [address]ud[address] [facility] [place] [address] * SCAN - RADIOLOGY/IMAGING (05/07/2024) Anatomical Region Laterality Modality Other us Rowan chacko Result from Last 3 Months Insurance [employer] MEDICARE MEDICARE [facility] Address: [address] [address] [place] [address] Care Teams Sheet Metal Journeyman Relationship Specialty Start Date End Date Bonifacio Baca MD [address] [place] [address] PCP - General Emergency Medicine 09/29/23
--- OUTSIDE RECORDS SUMMARY | 2024-08-03 12:01 | XMS_ITS | Encounter Summary ---
Author Organization [facility] Healthcare Address [address] [place] [address] Care Team Providers Care Freight Service Inspector Name Role Phone Bonifacio Baca MD Primary Care Provide r Encounter Details Date Type Department Care Team (Late st Contact Info) Description 07/28/2024 Telephone [facility] Medical Group Cardiology [address] [place] [address] Rowan Salcedo MD [address] [place] [address] Social History Tobacco Use Types Packs/Day [...] on filedocumented in this encounter Care Teams Freight Service Inspector Relationship Specialty Start Date End Date Bonifacio Baca MD [address] [place] [address] PCP - General Emergency Medicine 09/29/23 documented as of this encounter
--- OUTSIDE RECORDS SUMMARY | 2024-08-03 12:01 | XMS_ITS | Clinical Summary ---
Author Organization [facility] Medical Office Building B Address [address] [place] [address] Care Team Providers Care Food And Nutrition Teacher Name Role Phone Bonifacio Baca MD Primary [...] BY MOUTH DAILY WITH BREAKFAST 30 tablet 06/30/19 25 Active Jardiance 10 mg tablet [...] 1 TABLET (88 MCG TOTAL) BY MOUTH KILN CAR REPAIRER BEFORE BREAKFAST 90 tablet 3 05/19/19 25 025 Discontin ued(Reord er) levothyroxine (SYNTHROID) 88 mcg tabletIndications :Postablative hypothyroidism Take 1 tablet (88 mcg total) by mouth motor adjuster before breakfast 90 tablet 3 07/15/19 25 [...] Type Department Care Team Description 07/28/2024 Telephone [facility] Medical Group Cardiology [address] [place] [phone] Rowan Salcedo MD 07/27/2024 Telephone [facility] Cardiology [address] [place] [phone] Rowan Salcedo MD 07/22/2024 Telephone [facility] Cardiology [address] [place] [address] Rowan Salcedo MD 07/15/2024 Results Follow-Up [facility] Specialists of [address], [place] [address] Marce Chappell MD Postablative hypothyroidism 07/14/2024 10:30 AM CDT Lab [address] [address] Postablative hypothyroidism 07/14/2024 10:15 AM CDT Office Visit [facility] Specialists of [address] [place] [address] Marce Chappell MD Postablative hypothyroidism (Primary Dx); Essential hypertension; Mixed hyperlipidemia 07/13/2024 Telephone [facility] Medical Group Diabetes and Endocrinology [facility] [place] [address] Marce Chappell MD request to pcp for insurance referral 05/27/2024 Telephone [facility] Medical Group Cardiology [address] [place] [phone] Rowan Salcedo MD 05/07/2024 Orders Only [facility] Health Information Management [address] [place] [address] Rowan Salcedo MD from Last 3 Months [...] 36.2 C (97.1 F) 03/15/2020 1:55 PM COMBINER Respiratory Rate 16 07/14/2024 10:12 AM CDT Oxygen Saturation 99% 04/19/2024 9:54 AM COMBINER Inhaled Oxygen Concentration - - Weight 77.1 [...] 3 Months Results * (ABNORMAL) Thyroid Function [place] (07/14/2024 10:50 AM CDT) TSH 5.63(H) 0.30 - 4.20 mcIUnit/mL Blood 07/14/2024 10:5 0 AM CDT 07/14/2024 6:01 PM CDT us Marce Brar MD LAB BLOOD ORDERABLE S Final Result ARTI [address] [address] [place] [address] * T4, free (07/14/2024 10:50 AM CDT) Free T4 1.43 0.90 - 1.70 ng/dL Blood 07/14/2024 10:5 0 AM CDT 07/14/2024 6:09 PM CDT us Marce Brar MD LAB [place]LOOD [place] [address] [address] [place] [address] * SCAN - RADIOLOGY/IMAGING (05/07/2024) Anatomical Region Laterality Modality Other us Rowan chacko Result from Last 3 Months Insurance [facility] Address: [facility] [id number] [place] [phone] MEDICARE Care Teams Food And Nutrition Teacher Relationship Specialty Start Date End Date Bonifacio Baca MD [address] [place] [address] PCP - General Emergency Medicine 09/29/23
--- OUTSIDE RECORDS SUMMARY | 2024-08-03 12:01 | XMS_ITS | Clinical Summary ---
Author Organization [facility] Address [address] [place] [address] Care Team Providers Care Head Of Biology Name Role Phone Bonifacio Baca MD Primary Care Provider [phone] Allergies No known active allergies Social History [...] Mass Index - - Plan of Treatment Upcoming Encounters Date Type Department Care Team (Late st Contact Info) Description 09/06/2024 10:00 AM CDT Appointment [facility] Therapy [address] [place] [address] Ruby De Jesus PA [address] [place] [address] Sha Ruiz, PT [address] [place], [place] [id number] Health Maintenance Due Date Last Done Comments Hepatitis C 1962 DTaP, Tdap and Td Vaccines ( 1 - Tdap) 12/05/1963 Zoster Vaccines (1 of 2) 1994 Annual Medicare Wellness Visit 2009 Dexa Scan (General) 2009 RSV Immunization or 60+ Years (1 - 1-dose 75+ series) 12/05/2019 COVID-19 Vaccine (4 - 2023-2 5 season) 2023 03/05/2021, 06/13/2020, 05/16/2020 Pneumococcal Vaccine: 50+ Years Completed 03/25/2017, 04/04/2015 Meningococcal B Vaccine Aged Out No l onger eligible based on patient's age to complete this topic Meningococcal Vaccine Aged Out No reyes moon eligible based on patient's age to complete this topic RSV Immunizations Under 20 Months Aged Out No longer eligible b ased on patient's age to complete this topic Insurance [employer] Care Teams Head Of Biology Relationship Specialty Start Date End Date Bonifacio Baca MD [address] [place] [address] PCP - General INTERNAL MEDICINE 07/06/21
== END 2024-08-03 10:47 | disposition home or self-care (01) ==
LOC: ANHIMG 10:49
PROVIDERS: PCP Emergency Medicine; Visit Provider Emergency Medicine
DX: M25.551 Pain in right hip (principal)
CPT/HCPCS: 73502

== ENCOUNTER 2024-08-09 13:51 | Outpatient (CLI) | payer MEDICARE, SELFPAY ==
[2024-08-09 14:18] LABS: Hematocrit 35.6 % (37.0-47.0); Hemoglobin 11.5 g/dL (12.0-15.0); Mean Corpuscular HGB Conc 32.3 g/dl (32-36); Mean Corpuscular Hemoglobin 29.9 pg (26-34); Mean Corpuscular Volume 92.5 fl (80-100); Mean Platelet Volume 11.5 fl (7.4-10.4); Platelet Count Result 177 k/mm3 (150-375); Red Blood Count 3.85 M/mm3 (4.2-5.4); Red Cell Distribution Width 14.3 % (11.5-14.5); White Blood Count 6.2 K/mm3 (4.5-10.0)
[2024-08-09 14:31] LABS: Anion Gap 10 mmol/L (4-12); Blood Urea Nitrogen 39 mg/dL (7-17); Calcium 8.7 mg/dL (8.4-10.2); Carbon Dioxide 29 mmol/L (22-30); Chloride 98 mmol/L (98-107); Estimated Glomerular Filt Rate 29; Glucose 170 mg/dL (65-110); Phosphorus 4.3 mg/dL (2.5-4.5); Potassium 3.5 mmol/L (3.4-5.0); Sodium 137 mmol/L (137-145)
[2024-08-09 14:39] LABS: Parathyroid Intact 108.5 pg/mL (14.5-75.2)
[2024-08-09 15:06] LABS: Creatinine Urine 22.4 mg/dL; Total Protein Urine Random 11 mg/dL; Ur Ttl Prot Creatinine Ratio 0.49 mg/mg (0-0.20)
--- OUTSIDE RECORDS SUMMARY | 2024-08-09 15:43 | XMS_ITS | Clinical Summary ---
Author Organization [facility] Address [address] [place] [address] Care Team Providers Care Vocational Case Manager Name Role Phone Bonifacio Baca MD Primary Care Provider [phone] Allergies No known active allergies Social History [...] Info) Description 09/06/2024 10:00 AM CDT Appointment [facility] Therapy [address] [place] [address] Ruby De Jesus PA [address] [place] [address] Sha Ruiz, PT [address] [place], [place] [phone] Health Maintenance Due Date Last Done Comments [...] complete this topic Insurance [employer] Care Teams Vocational Case Manager Relationship Specialty Start Date End Date Bonifacio Baca MD [address] [place] [address] PCP - General INTERNAL MEDICINE 07/06/21
--- OUTSIDE RECORDS SUMMARY | 2024-08-09 15:43 | XMS_ITS | Encounter Summary ---
Author Organization [facility] Healthcare Address [address] [place] [address] Care Team Providers Care Substation Wireman Name Role Phone Bonifacio Baca MD Primary Care Provide r Encounter Details Date Type Department Care Team (Late st Contact Info) Description 07/28/2024 Telephone [facility] Medical Group Cardiology [address] [place] [address] Rowan Salcedo MD [address] [place] [address] Social History Tobacco Use Types Packs/Day [...] on filedocumented in this encounter Care Teams Substation Wireman Relationship Specialty Start Date End Date Bonifacio Baca MD [address] [place] [address] PCP - General Emergency Medicine 09/29/23 documented as of this encounter
--- OUTSIDE RECORDS SUMMARY | 2024-08-09 15:43 | XMS_ITS | Referral Summary ---
Author Organization [facility] Medical Office Building B Address [address] [place] [address] Care Team Providers Care Waste Elimination Name Role Phone Bonifacio Baca MD Primary Care Provide r Encounters Date Type Department Care Team Description 07/28/[address] [facility] Medical [facility] Cardiology [address] [place] [phone] Rowan Salcedo MD 07/27/2024 Telephone [facility] Cardiology [address] [place] [phone] Rowan Salcedo MD 07/22/2024 Telephone [facility] Cardiology [address] [facility] [address] [place] [phone] Rowan Salcedo MD 07/15/2024 Results [facility] [address] [place] [address] Marce Chappell MD Postablative hypothyroidism 07/14/2024 10:30 AM CDT Lab [address] [address] Postablative hypothyroidism 07/14/2024 10:15 AM CDT Office [facility] [address] [address] Marce Chappell MD Postablative hypothyroidism (Primary Dx); Essential hypertension; Mixed hyperlipidemia 07/13/[address] [facility] Medical Group Diabetes and Endocrinology [address] [place] [address] Marce Chappell MD request to pcp for insurance referral 05/27/[address] [facility] Medical Group Cardiology [address] [place] [address] Rowan Salcedo MD from Last 3 Months [...] mouth daily 30 tablet 10/02/19 24 025 Discontin ued(Thera py completed ) levothyroxine (SYNTHROID) 88 mcg tabletIndications :Postablative hypothyroidism TAKE 1 TABLET (88 MCG TOTAL) BY MOUTH TABLEMAN BEFORE BREAKFAST 90 tablet 3 05/19/19 25 025 Discontin ued(Reord er) levothyroxine (SYNTHROID) 88 mcg tabletIndications :Postablative hypothyroidism Take 1 tablet (88 mcg total) by mouth manager of environmental services before breakfast 90 tablet 3 07/15/19 25 [...] 36.2 C (97.1 F) 03/15/2020 1:55 PM ELECTRIC PILE DRIVER OPERATOR Respiratory Rate 16 07/14/2024 10:12 AM CDT Oxygen Saturation 99% 04/19/2024 9:54 AM ELECTRIC PILE DRIVER OPERATOR Inhaled Oxygen Concentration - - Weight 77.1 [...] Routine 07/14/2024 10:50 AM CDT Postablative hypothyroidism from Last 3 Months Results * (ABNORMAL) Thyroid Function [place] (07/14/2024 10:50 AM CDT) TSH 5.63(H) 0.30 - 4.20 mcIUnit/mL Blood 07/14/2024 10:5 0 AM CDT 07/14/2024 6:01 PM CDT Marce Brar MD LAB BLOOD ORDERABLE S Final Result Performing Organization Address City/[facility]/ZIP Co de Phone Number ARTI LOVE [address] [address] Department [employer] [place], [place] [id number] * T4, free (07/14/2024 10:50 AM CDT) Free T4 1.43 0.90 - 1.70 ng/dL Blood 07/14/2024 10:5 0 AM CDT 07/14/2024 6:09 PM CDT Marce Brar MD LAB BLOOD ORDERABLE S Final Result Performing Organization Address City/[facility]/ZIP Co de Phone Number ARTI KATE [address] [address] [place] [address] from Last 3 Months Insurance [employer] MEDICARE MEDICARE [facility] Address: [address] [address] [place] [address] Care Teams Waste Elimination Relationship Specialty Start Date End Date Bonifacio Baca MD [address] [place] [address] PCP - General Emergency Medicine 09/29/23
--- OUTSIDE RECORDS SUMMARY | 2024-08-09 15:43 | XMS_ITS | Clinical Summary ---
Author Organization [facility] Medical Office Building B Address [address] [place] [address] Care Team Providers Care Education Program Associate Name Role Phone Bonifacio Baca MD Primary [...] 1 TABLET (88 MCG TOTAL) BY MOUTH MASTER OCEAN YACHT BEFORE BREAKFAST 90 tablet 3 05/19/19 25 025 Discontin ued(Reord er) levothyroxine (SYNTHROID) 88 mcg tabletIndications :Postablative hypothyroidism Take 1 tablet (88 mcg total) by mouth early education teacher before breakfast 90 tablet 3 07/15/19 25 [...] Type Department Care Team Description 07/28/2024 Telephone [facility] Medical Group Cardiology [address] [place] [phone] Rowan Salcedo MD 07/27/2024 Telephone [facility] Cardiology [address] [place] [phone] Rowan Salcedo MD 07/22/2024 Telephone [facility] Cardiology [address] [place] [address] Rowan Salcedo MD 07/15/2024 Results Follow-Up [facility] of [address], [place] [address] Marce Chappell MD Postablative hypothyroidism 07/14/2024 10:30 AM CDT Lab [address] [address] Postablative hypothyroidism 07/14/2024 10:15 AM CDT Office Visit [facility] of [address] [place] [phone] Marce Chappell MD Postablative hypothyroidism (Primary Dx); Essential hypertension; Mixed hyperlipidemia 07/13/2024 Telephone [facility] Medical Group Diabetes and Endocrinology [facility] [place] [address] Marce Chappell MD request to pcp for insurance referral 05/27/2024 Telephone [facility] Medical Group Cardiology [address] [facility] [address] [place] [phone] Rowan Salcedo MD from Last 3 [...] 36.2 C (97.1 F) 03/15/2020 1:55 PM PHYSICIAN EXTENDER Respiratory Rate 16 07/14/2024 10:12 AM CDT Oxygen Saturation 99% 04/19/2024 9:54 AM PHYSICIAN EXTENDER Inhaled Oxygen Concentration - - Weight 77.1 [...] 3 Months Results * (ABNORMAL) Thyroid Function [place] (07/14/2024 10:50 AM CDT) TSH 5.63(H) 0.30 - 4.20 mcIUnit/mL Blood 07/14/2024 10:5 0 AM CDT 07/14/2024 6:01 PM CDT us Marce Brar MD LAB BLOOD ORDERABLE S Final Result ARTI [address] [address] Department [place] [address] * T4, free (07/14/2024 10:50 AM CDT) Free T4 1.43 0.90 - 1.70 ng/dL Blood 07/14/2024 10:5 0 AM CDT 07/14/2024 6:09 PM CDT Marce Brar MD LAB [place]LOOD [place] [address] [address] Department [place] [address] from Last 3 Months Insurance [employer] MEDICARE MEDICARE Care Teams Education Program Associate Relationship Specialty Start Date End Date Bonifacio Baca MD [address] [facility] [address] PCP - General Emergency Medicine 09/29/23
--- OUTSIDE RECORDS SUMMARY | 2024-08-09 15:43 | XMS_ITS | Encounter Summary ---
Author Organization [facility] Healthcare Address [address] [place] [address] Care Team Providers Care Primer Charger Name Role Phone Bonifacio Baca MD Primary Care Provide r Encounter Details Date Type Department Care Team (Late st Contact Info) Description 07/27/2024 Telephone [facility] Medical Group Cardiology [address] [place] [address] Rowan Salcedo MD [address] [place] [address] Social History Tobacco Use Types Packs/Day [...] 7:45 AM CDT Faxed requested documents to [phone] * Telephone Encounter - Berta Richardson - 07/27/2024 4:02 PM CDT Sameera from PAT dept at requesting most recent office visit note, EKG, and Echo be faxed to theiroffice. Thank you. Contact:[phone] documented in this encounter Plan of Treatment Not on file documented as of this encounter Visit Diagnoses Not on filedocumented in this encounter Care Teams Primer Charger Relationship Specialty Start Date End Date Bonifacio Baca MD [address] [place] [address] PCP - General Emergency Medicine 09/29/23 documented as of this encounter
--- OUTSIDE RECORDS SUMMARY | 2024-08-09 15:43 | XMS_ITS | Encounter Summary ---
Author Organization [facility] Healthcare Address [address] [place] [address] Care Team Providers Care Room Service Waiter/Waitress Name Role Phone Bonifacio Baca MD Primary Care Provide r Encounter Details Date Type Department Care Team (Late st Contact Info) Description 07/22/2024 Telephone [facility] Medical Group Cardiology [address] [place] [address] Rowan Salcedo MD [address] [place] [address] Social History Tobacco Use Types Packs/Day [...] questions about your ePA request, please contact [facility] Medicare Part D at [phone]. If you think there may be a problem with your PA request, use our live chat feature at the bottom right. CloseReturn to Dashboard * Telephone Encounter - Kavita rGant MA - 07/22/2024 3:02 PM CDT Spoke [...] guanFACINE (TENEX) 2 mg. # for PA: [phone] CB: [phone] documented in this encounter Plan of Treatment Not on file documented as of this encounter Visit Diagnoses Not on filedocumented in this encounter Care Teams Room Service Waiter/Waitress Relationship Specialty Start Date End Date Bonifacio Baca MD [address] [place] [address] PCP - General Emergency Medicine 09/29/23 documented as of this encounter
== END 2024-08-09 13:52 | disposition home or self-care (01) ==
LOC: ANHLAB 13:53
PROVIDERS: PCP Emergency Medicine; Visit Provider Internal Medicine Nephrology
DX: I12.9 Hypertensive chronic kidney disease with stage 1 through stage 4 chronic kidney disease, or unspecified chronic kidney disease (principal); N18.32 Chronic kidney disease, stage 3b
CPT/HCPCS: 36415; 80069; 82570; 83970; 84156; 85027

== ENCOUNTER 2024-08-24 16:13 | Observation (INO) | payer MEDICARE, SELFPAY ==
[2024-07-28 11:32] VITALS: BP 151/67; PULSE 62; RESP 16; TEMP 37.1; O2SAT 98; BMI 29.9
--- NOTE | 2024-07-28 11:54 | PC.NURSE ---
Report to the Outpatient Waiting Room, entrance under the green pavilion located off [facility], at time __1000am on date __08/23/24 . Planned Procedure Time: __1200pm .? Time changes happen often and if your time is changed the preop area will call you the afternoon before. - You and your visitor will be asked to self-screen and do not enter if you have any COVID symptoms. Please call surgeon if you need to reschedule. - A mask is optional within the hospital at this time. Patients may have clear liquids (water, carbonated beverages, clear teas, apple juice) until 3 hours prior to surgery with a maximum of 20 ounces. - No food from midnight until time of surgery and no smoking, or chewing tobacco (or any form of nicotine). No chewing gum, candy or mints.(0900am) Take only the following medications with a SIP of water on the morning of surgery: __Ropinirole, Metoprolol, levothyroxine. Tylenol if needed DO NOT STOP ANY OF YOUR OTHER PRESCRIPTION MEDICATIONS PRIOR TO SURGERY EXCEPT THE FOLLOWING Hold all vitamins and supplements for 3 days per anesthesiologist. Date to take last dose is 08/19/24 Medications to discontinue per physician ____Xarelto per Dr Salcedo - they will call pt Date to take last dose____per Dr Salcedo Please no make-up, nail indonesian, hairspray, perfume, deodorant, or body powder the day of surgery.? No jewelry (including any body piercings) or valuables the day of surgery, leave them at home.? Please take a shower or bath the night before, or the morning of, surgery with an antibacterial soap.? Wear comfortable, loose fitting clothing.? - Jewelry must be removed prior to entering the operating room.? Rings and piercings that are not removed may be cut off. - The hospital will not accept responsibility for valuables.? - Please leave all valuables, including medications, at home the day of surgery. If you are going home after surgery, a licensed armored car guard and driver must drive you home.? - NO public transportation without another adult if you receive anesthesia. - We recommend that an adult stay with you for 24 hours following discharge. - We also recommend that you do not drive, make important decision, drink alcoholic beverages, or take any drugs that were not prescribed by your health care provider for at least 24 hours after your discharge time. Follow any additional instructions given to you from your surgeon. Telephone instructions given to ___Patient & Husband and asked if any additional questions and then verbalized understanding. Patient advised to call surgeon office or pre surgery nurse liaison [phone] if any additional questions.
--- NOTE | 2024-08-20 14:30 | WPDANESEPPF ---
Anes - Initial Pre Proc Eval Procedure: Operation Date: 08/23/24 12:00 Proposed Procedures p Left Total Knee Arthroplasty - Zhang Arndt MD Date/Time: 08/20/24 14:30 Surgeon: Zhang Arndt MD Pre Op Diagnosis: primary oa left knee Patient Data Age: 78 Gender: F Height: 1.6 m Weight: 76.8 kg Last Vital Signs Temp 98.7 F 07/28/24 11:32 Pulse 62 07/28/24 11:32 Resp 16 07/28/24 11:32 BP 151/67 H 07/28/24 11:32 Pulse Ox 98 07/28/24 11:32 O2 Del Method Room Air 07/28/24 11:32 Allergies Allergy/AdvReac Type Severity Reaction Status Date / Time No Known Allergies Allergy Verified 08/23/24 10:55 Home Medications ?Medication ?Instructions ?Recorded ?Confirmed ?Type rivaroxaban 2.5 mg tablet (Xarelto) 2.5 mg PO BID 07/08/22 08/23/24 History guanfacine 2 mg tablet 2 mg PO HS #90 tabs 07/23/23 08/23/24 Rx levothyroxine 88 mcg capsule 88 mcg PO DAILY 09/02/23 08/23/24 History hydrochlorothiazide 25 mg tablet 25 mg PO DAILY #90 tabs 01/07/24 08/23/24 Rx empagliflozin 10 mg tablet 10 mg PO DAILY #30 tabs 05/05/24 08/23/24 Rx (Jardiance) losartan 100 mg tablet See Rx Instructions .Route 05/05/24 08/23/24 Rx .COMPLEX #90 tabs simvastatin 40 mg tablet See Rx Instructions .Route 05/05/24 08/23/24 Rx .COMPLEX #90 tabs ezetimibe 10 mg tablet See Rx Instructions .Route 05/10/24 08/23/24 Rx .COMPLEX #90 tabs ropinirole 2 mg tablet See Rx Instructions .Route 05/18/24 08/23/24 Rx .COMPLEX #270 tabs multivitamin (Daily Multi-Vitamin 1 tablet PO DAILY 07/28/24 08/23/24 History tablet) mupirocin 2 % topical ointment 1 applic topical .COMPLEX #22 grams 07/29/24 08/23/24 Rx (Centany) metoprolol succinate 50 mg See Rx Instructions .Route 08/13/24 08/23/24 Rx tablet,extended release 24 hr .COMPLEX #90 tabs Patient hx anesthesia problems: none Family hx anesthesia problems: none Results Review: All pre-operative results and documents have been reviewed as part of the pre-operative evaluation. [facility] Past Medical History Medical History (Updated 08/19/24 @ 10:56 by Marilyn Barney MA) Cellulitis and abscess of hand Postmenopausal Back pain with left-sided radiculopathy Bilateral carotid bruits Body mass index [BMI] 27.0-27.9, adult (08/27/16) Body mass index [BMI] 28.0-28.9, adult (11/27/15) Burning with urination Chest pain in adult Closed nondisplaced fracture of greater tuberosity of left humerus Hematuria Hyperglycemia Left hip pain Left leg pain Lightheaded Osteoarthritis of left knee Primary generalized (osteo)arthritis Stress incontinence in female Hypertension Lumbar back pain Dyspnea on exertion Localized osteoarthritis of left knee Hypothyroidism (acquired) HLD (hyperlipidemia) Fracture of proximal end of left humerus (~12/2018) Carotid artery bruit RLS (restless legs syndrome) Surgical History Surgical History History of prolapse of bladder Hx of hysterectomy History of total right knee replacement (~06/18/18) Family History Family History Sibling Family history of diabetes mellitus in first degree relative Social History Social History Smoking packs per day: 1 Smoking cigarettes per day: 20.0 Years smoked: 20 Smoking pack-years: 20.00 Smoking status: Former smoker Tobacco type: cigarettes Smoking end date: 04/21/94 Additional smoking assessment comments: denies nicotine Alcohol intake: never Substance use: never Do You Feel Safe in your Home?: Yes Lack of Transportation: No Lack of Food: Never True Current Housing: I Have Housing Concerned About Future Housing: No Difficulty Paying Gas/Electric Bills: No Difficulty Paying for Meds: No Currently Unemployed: No Education: Trade/Vocational Certificate Difficulty w/ Childcare or Family Care: No Living arrangements: with family Additional living arrangements comments: Gender identity (if verbalized by the patient): Female Spiritual care concerns: No Anes - Eval Final PreProcedure Day of Procedure 08/20/24 14:30 Patient weight: obese Heart: regular rate and rhythm and irregular rhythm Lungs: clear to auscultation Airway: Mallampati scale class III Neurological: alert and oriented Last oral intake: >/= 8 hours ASA classification: III Emergent: no Anesthetic plan: proceed Anesthesia type and monitoring: general LMA and standard monitoring Results Review: All pre-operative results and documents have been reviewed as part of the pre-operative evaluation. Informed Consent: The patient's anesthetic plan and its attendant risks and benefits were discussed with the patient/family/POA. Questions were solicited and answers provided to the satisfaction of the patient/family/POA.
[2024-08-23] VITALS (14 sets, daily range): BP systolic 108–149; BP diastolic 52–100; PULSE 58–85; RESP 12–20; TEMP 36.1–37.2; O2SAT 92–100; BMI 29.9
--- OUTSIDE RECORDS SUMMARY | 2024-08-23 01:04 | XMS_ITS | Encounter Summary ---
Author Organization [facility] Healthcare Address [address] [place] [address] Care Team Providers Care State Fire Marshal Name Role Phone Bonifacio Baca MD Primary Care Provide r Encounter Details Date Type Department Care Team (Late st Contact Info) Description 07/22/2024 Telephone [facility] Medical Group Cardiology [address] [place] [address] Rowan Salcedo MD [address] [place] [address] Social History Tobacco Use Types Packs/Day [...] [facility] Medicare Part D at [phone]. If you think there may be a [...] guanFACINE (TENEX) 2 mg. # for PA: [phone] CB: [phone] documented in this encounter Plan of Treatment Not on file documented as of this encounter Visit Diagnoses Not on filedocumented in this encounter Care Teams State Fire Marshal Relationship Specialty Start Date End Date Bonifacio Baca MD [address] [place] [address] PCP - General Emergency Medicine 09/29/23 documented as of this encounter
--- OUTSIDE RECORDS SUMMARY | 2024-08-23 01:04 | XMS_ITS | Encounter Summary ---
Author Organization [facility] Healthcare Address [address] [place] [address] Care Team Providers Care Grinder Chipper Name Role Phone Bonifacio Baca MD Primary Care Provide r Encounter Details Date Type Department Care Team (Late st Contact Info) Description 07/28/2024 Telephone [facility] Medical Group Cardiology [address] [place] [address] Rowan Salcedo MD [address] [place] [address] Social History Tobacco Use Types Packs/Day [...] on filedocumented in this encounter Care Teams Grinder Chipper Relationship Specialty Start Date End Date Bonifacio Baca MD [address] [place] [address] PCP - General Emergency Medicine 09/29/23 documented as of this encounter
--- OUTSIDE RECORDS SUMMARY | 2024-08-23 01:04 | XMS_ITS | Referral Summary ---
Author Organization [facility] Medical Office Building B Address [address] [place] [address] Care Team Providers Care Steel Pourer Name Role Phone Bonifacio Baca MD Primary Care Provide r Encounters Date Type Department Care Team Description 07/28/2024 Telephone [facility] Medical [facility] Cardiology [address] [place] [phone] Rowan Salcedo MD 07/27/2024 Telephone [facility] Cardiology [address] [place] [phone] Rowan Salcedo MD 07/22/2024 Telephone [facility] Cardiology [address] [facility] [address] [place] [phone] Rowan Salcedo MD 07/15/2024 Results Follow-Up [facility] of [address] [place] [address] Marce Chappell MD Postablative hypothyroidism 07/14/2024 10:30 AM CDT Lab [address] [address] Postablative hypothyroidism 07/14/2024 10:15 AM CDT [facility] [address] [address] Marce Chappell MD Postablative hypothyroidism (Primary Dx); Essential hypertension; Mixed hyperlipidemia 07/13/2024 Telephone [facility] Medical Group Diabetes and Endocrinology [address] [place] [address] Marce Chappell MD request to pcp for insurance referral 05/27/2024 Telephone [facility] Medical Group Cardiology [address] [place] [address] Rowan Salcedo MD from Last [...] 02/15/20 22 Active guanFACINE (TENEX) 2 mg tabletIndications: Essential hypertension Take 1 tablet (2 mg total) by mouth nightly 30 tablet 11 09/29/19 24 025 Active Xarelto 20 mg tablet TAKE 1 TABLET BY MOUTH DAILY WITH BREAKFAST 30 tablet 11 06/30/19 25 Active Jardiance 10 mg tablet Take 1 tablet (10 mg total) by mouth daily 06/30/19 25 Active hydroCHLOROthiazid e (HYDRODIURIL) 25 mg tablet 07/11/19 25 Active levothyroxine (SYNTHROID) 88 mcg tabletIndications: Postablative hypothyroidism levothyroxine 88 mcg oral 6 days a week and 1-1/2 tablet on Friday 96 tablet 3 07/16/19 25 Active Active Problems Problem Noted Date Diagnosed Date [...] 36.2 C (97.1 F) 03/15/2020 1:55 PM REGIONAL SALES MANAGER Respiratory Rate 16 07/14/2024 10:12 AM CDT Oxygen Saturation 99% 04/19/2024 9:54 AM REGIONAL SALES MANAGER Inhaled Oxygen Concentration - - Weight [...] 3 Months Results * (ABNORMAL) Thyroid Function [place] (07/14/2024 10:50 AM CDT) TSH 5.63(H) 0.30 - 4.20 mcIUnit/mL Blood 07/14/2024 10:5 0 AM CDT 07/14/2024 6:01 PM CDT us Marce Brar MD LAB BLOOD ORDERABLE S Final Result ARTI LOVE [address] Department [place] [address] * T4, free (07/14/2024 10:50 AM CDT) Free T4 1.43 0.90 - 1.70 ng/dL Blood 07/14/2024 10:5 0 AM CDT 07/14/2024 6:09 PM CDT us Marce Brar MD LAB BLOOD ORDERABLE S Final Result Performing Organization Address City/[facility]/ZIP Co de Phone Number ARTI LOVE [address] [address] Department [place] [address] from Last 3 Months Insurance [facility] MEDICARE MEDICARE Care Teams Steel Pourer Relationship Specialty Start Date End Date Bonifacio Baca MD [address] [place] [address] PCP - General Emergency Medicine 09/29/23
--- OUTSIDE RECORDS SUMMARY | 2024-08-23 01:04 | XMS_ITS | Clinical Summary ---
Author Organization [facility] Medical Office Building B Address [address] [place] [address] Care Team Providers Care Credit Adjuster Name Role Phone Bonifacio Baca MD Primary [...] Department Care Team Description 07/28/[address] [facility] Medical [facility] Cardiology [address] [facility] [address] [place] [phone] Rowan Salcedo MD 07/27/2024 Telephone [facility] Cardiology [address] [facility] [address] [place] [address] Rowan Salcedo MD 07/22/2024 Telephone [facility] Cardiology [address] [facility] [address] [place] [address] Rowan Salcedo MD 07/15/2024 Results Follow-Up [facility] Special[facility] of [address] [address] Marce Chappell MD Postablative hypothyroidism 07/14/2024 10:30 AM CDT Lab [address] [address] Postablative hypothyroidism 07/14/2024 10:15 AM CDT Office Visit [facility] Special[facility] of [address] [address] Marce Chappell MD Postablative hypothyroidism (Primary Dx); Essential hypertension; Mixed hyperlipidemia 07/13/[address] [facility] Medical Group Diabetes and Endocrinology [address] [place] [address] Marce Chappell MD request to pcp for insurance referral 05/27/[address] [facility] Medical Group Cardiology [address] [place] [address] Rowan Salcedo MD from Last [...] 36.2 C (97.1 F) 03/15/2020 1:55 PM WIRE WEB WORKER Respiratory Rate 16 07/14/2024 10:12 AM CDT Oxygen Saturation 99% 04/19/2024 9:54 AM WIRE WEB WORKER Inhaled Oxygen Concentration - - Weight 77.1 [...] 3 Months Results * (ABNORMAL) Thyroid Function [place] (07/14/2024 10:50 AM CDT) TSH 5.63(H) 0.30 - 4.20 mcIUnit/mL Blood 07/14/2024 10:5 0 AM CDT 07/14/2024 6:01 PM CDT us Marce Brar MD LAB [place]LOOD [place] [address] [address]udino Department [place] [address] * T4, free (07/14/2024 10:50 AM CDT) Free T4 1.43 0.90 - 1.70 ng/dL Blood 07/14/2024 10:5 0 AM CDT 07/14/2024 6:09 PM CDT us Marce Brar MD LAB BLOOD [place] [address] [address]udino Department [place] [address] from Last 3 Months Insurance [employer] MEDICARE MEDICARE Care Teams Credit Adjuster Relationship Specialty Start Date End Date Bonifacio Baca MD [address] [place], [place] [id number] PCP - General Emergency Medicine 09/29/23
--- OUTSIDE RECORDS SUMMARY | 2024-08-23 01:04 | XMS_ITS | Clinical Summary ---
Author Organization [facility] Address [address] [place] [address] Care Team Providers Care High Voltage Electrician Name Role Phone Bonifacio Baca MD Primary Care Provider [phone] Allergies No known active allergies Social History [...] Info) Description 09/06/2024 10:00 AM CDT Appointment [facility] Therapy [address] [place] [address] Ruby De Jesus PA [address] [place] [address] Sha Ruiz, PT [address] [place], [place] [id number] Health Maintenance Due Date Last Done Comments [...] complete this topic Insurance [employer] Care Teams High Voltage Electrician Relationship Specialty Start Date End Date Bonifacio Baca MD [address] [place] [address] PCP - General INTERNAL MEDICINE 07/06/21
--- OUTSIDE RECORDS SUMMARY | 2024-08-23 01:04 | XMS_ITS | Encounter Summary ---
Author Organization [facility] Healthcare Address [address] [place] [address] Care Team Providers Care Nipple Maker Name Role Phone Bonifacio Baca MD Primary Care Provide r Encounter Details Date Type Department Care Team (Late st Contact Info) Description 07/27/2024 Telephone [facility] Medical Group Cardiology [address] [place] [address] Rowan Salcedo MD [address] [place] [address] Social History Tobacco Use Types Packs/Day [...] 7:45 AM CDT Faxed requested documents to [phone] * Telephone Encounter - Berta Richardson - 07/27/2024 4:02 PM CDT Sameera from PAT dept at requesting most recent office visit note, EKG, and Echo be faxed to theiroffice. Thank you. Contact:[phone] documented in this encounter Plan of Treatment Not on file documented as of this encounter Visit Diagnoses Not on filedocumented in this encounter Care Teams Nipple Maker Relationship Specialty Start Date End Date Bonifacio Baca MD [address] [place] [address] PCP - General Emergency Medicine 09/29/23 documented as of this encounter
[2024-08-23] MEDS: TRANEXAMIC ACID 1,000 MG/10 ML AMPUL 1000 MG IV PUSH (08:57)
[2024-08-23] MEDS: ACETAMINOPHEN 500 MG TABLET 1000 MG PO (10:30)
[2024-08-23] MEDS: TRANEXAMIC ACID 1,000MG/ISO100 1,000 MG/100 ML BAG 200 MG IVPB (10:30)
[2024-08-23 11:04] LABS: INR 0.9
[2024-08-23] MEDS: LACTATED RINGERS 1,000 ML 30 ML IV CONT ×2 (11:38→15:01)
--- NOTE | 2024-08-23 11:57 | WPDHPUPDATE1 ---
History and Physical Update Update Date/Time: 08/23/24 11:57 History and Physical has been reviewed, including an updated exam of the patient. There are NO changes in the patient's condition. Risks, benefits, and alternatives have been discussed and questions answered. Patient agrees to proceed with procedure.
[2024-08-23] MEDS: ceFAZolin 2 GM/D5W 50 ML 2 GM/50 ML BAG IVPB ×2 (12:54→20:44)
[2024-08-23] MEDS: SODIUM CHLORIDE 0.9% IV 37.7 ML, MORPHINE SULFATE INJ (*CRX) 2 MG, ROPivacaine HCL 1% 2... INFILTRATE (13:39)
[2024-08-23] MEDS: fentaNYL CITRATE INJ (*CRX) 100 MCG/2 ML VIAL 25 MCG IV PUSH ×4 (15:15→15:40)
--- NOTE | 2024-08-23 16:08 | W.PM.PROC2 ---
Procedure Note - Detailed Date of Procedure 08/23/24 Pre-op Diagnosis Left knee degenerative arthritis. Post-op Diagnosis Same Procedure Performed Calipered, kinematically aligned total knee replacement left knee. Surgeon Zhang Arndt MD Anesthesia General Findings According to the calipered kinematic alignment principles, the knee was balanced by the following verification checks incorporating 6 caliper measurements, using an insert goniometer to select the insert thickness, and adjusting the tibial resection following the kinematic alignment algorithm (see figure 160.10 published in [employer] chapter on kinematic alignment total knee arthroplasty.) The steps verified the femoral and tibial components were kinematically aligned coincident to the patient's pre arthritic joint lines, which closely restored the [place] mountain tibial compartment forces and ligament laxities without ligament release. The Actual ExperienceriKA knee, designed specifically for kinematic alignment, fit optimally. The record of verification checks were documented and scanned into the chart. Distal Femoral Resection: Distal Medial 6 mm(cartilage worn), Distal Lateral 8 mm Target thickness of 8mm Unworn, 6mm Worn (No Cartilage). Posterior Femoral Resection: Posterior Medial 5 mm(cartilage worn), Posterior Lateral 7 mm. Target thickness of 7mm Unworn, 5mm Worn (No Cartilage). Description of Procedure General anesthesia was administered. A well-padded tourniquet was placed high on the thigh. The limb was prepped and draped in the usual sterile fashion. The limb was exsanguinated and the tourniquet inflated to 300 mmHg. A longitudinal incision was created over the midline of the knee. Sharp dissection was taken through subcutaneous tissues. Electrocautery was used for hemostasis. A trivector approach to the knee joint was performed. The ACL, anterior horns of the menisci, and fat pad were excised, and a subperiosteal dissection was carried along the posterior medial border of the tibia. Starting midway between the top of the notch in the anterior femoral cortex, I drilled a 9 mm diameter hole parallel to the anterior cortex to minimize flexion of the femoral component and promote patella tracking. I verified the existence of a 5-10 mm bone bridge between the posterior aspect of the hole and the anterior limit of the intercondylar notch. An intraosseous positioning holly was inserted 10 cm into the femur perpendicular to the distal joint line and parallel to the anterior cortex. I used a distal femoral referencing guide that compensated 2 mm when the cartilage was worn on the distal medial femoral condyle, and 2 mm when the cartilage was worn on the distal lateral femoral condyle. The basis for setting the distal and posterior femoral resection guide is knowing that the varus and valgus grade II to IV Kellegren-Shashank osteoarthritic knees have negligible bone wear at 0? and 90? and that the mean full-thickness cartilage wear approximates 2 mm. I measured the thickness of distal femoral resections with a caliper to +/- 0.5 mm. The thickness of each resection was adjusted to match the thickness of the respective condyle of the femoral component within 0.5 mm of target after compensating for cartilage wear and kerf. When the distal resection was 1-2 mm too thin, a recut guide was used to adjust the cut. When the distal resection was too thick, a 1 or 2 mm thick washer was fixed to the back of the 4-in-1 chamfer block to megha a corrective gap between the femoral component and distal femur. I set posterior femoral referencing guide at 0? orientation to position the pin holes for the 4 in 1 chamfer block. The aelx wing measured the width of the distal femoral resection and selected the size of the 4 in 1 chamfer block and femoral component. The AP sizer confirmed the size. I measured the thickness of the posterior femoral resections with a caliper before making the anterior and chamfer cuts. I adjusted the thicknesses of each resection to match the thickness of the respective condyle of the femoral component within +/-0.5 mm after compensating for cartilage wear and curve. When a posterior resection femoral resection was 1-2 mm too thick or thin a corrective correction was made by shifting or rotating the 4 in 1 chamfer block as needed. The chamfer block was secured in the correct position with compression screws. The anterior and chamfer femoral resections were made. These caliper measurements and corrections verified that the femoral component was set coincident with the patient's pre-arthritic distal and posterior femoral joint lines. I removed all the medial and lateral femoral and tibial osteophytes to restore the pre arthritic length of the medial and lateral collateral ligaments. I [place] AP lines along the major axis of the lateral tibial plateau in between the tibial spines which identified the flexion extension plane of the knee. A conventional extramedullary tibial resection guide was applied to the ankle. An alex wing was placed medially in the saw slot. The varus valgus angle of the tibial resection guide was adjusted until the guide paralleled the proximal tibial articular surface after compensating for cartilage and bone wear. The slope of flexion extension angle of the tibial resection guide was adjusted until the alex wing paralleled the slope of the medial tibia after compensating for wear. The AP axis of the tibial resection guide was adjusted parallel to the two lines. The proximal tibia was resected, partially releasing the insertion of the posterior cruciate ligament. The thickness of the medial and lateral lateral tibial condyle was measured at the base of the tibial spines. I visually verified the slope of the medial border of the resection was parallel to the patient's pre arthritic slope after compensating for cartilage and bone wear. I removed the remnants of the posterior horns of the menisci and posterior osteophytes and cauterized the inferior lateral genicular vessels. The Aquamantys bipolar device was also used to for additional hemostasis. When the knee had a preoperative flexion contracture of 20? or more I teased the capsule off the posterior femur with a curved 3 quarter-inch osteotome. I administered the posterior femoral periosteal injection by delivering 10 cc using a 20 gauge spinal needle at the most medial and 10 cc at the most lateral femoral spur surface which reduced the risk of injury to the posterior neurovascular structures. I followed 6 options in a decision tree to fine tune the varus valgus and posterior slope orientation of the tibial component to restore the patient's pre arthritic tibial joint line and limb alignment. First, I adjusted the varus-valgus orientation of the proximal tibia resection working in 1 degree to 2 degree increments until there was negligible medial and lateral lift off of the distal femoral and proximal tibial resection from the spacer block during a varus valgus laxity assessment in extension. I selected the largest anatomic shape trial tibial base plate that fit within the cortical boundary of the proximal tibial resection. The base plate was best fit parallel to the cortical boundary which set the Internal-external orientation of the anterior to posterior and medial to lateral positions. The best fit method set the AP axis of the tibial base plate and insert parallel to the flexion extension plane of the pre arthritic knee. I pinned the trial tibial base plate, prepared the cruciate slot, and fixed the base plate to the tibia with the cruciate stem. I inserted the trial femoral component. The knee was placed in full extension. Varus valgus laxity is of the knee with trial components were assessed. When asymmetric laxity was observed a 1-2 degree varus or valgus recut guide was used to fine tune the tibial resection until the laxity was 1 degree or less in full extension like the [place] knee. The following steps determined the optimal insert thickness within +/-1 mm. First I inserted an insert goniometer that matched the thickness of the spacer block. I reduced the patella and then with the knee in maximum extension, I verified the knee hyperextended a few degrees and had negligible varus valgus laxity, like the pre arthritic knee. Next, I measured the external tibial orientation which was the angle the insert goniometer intersected the sagittal line on the medial condyle of the femoral trial component. Then with the knee in 15-30 degrees flexion I verified a 3-4 mm gap in the lateral compartment and no gap in the medial compartment during a 2nd varus valgus laxity test. Next, I placed the knee in 90? of flexion and the foot resting on the operating table and measured the internal tibial orientation. I repeated the steps until I identified the insert thickness that provided the highest external tibia orientation in extension and the highest internal tibial orientation at 90? flexion without anterior lift-off of the insert from the tibial base plate. The insert with this thickness was implanted. I applied a posterior drawer test with the tibia distracted by gravity and verified no posterior subluxation of the tibia relative to the femur. The patella remained centered on the trochlea and tracked well throughout the entire arc of flexion and extension. The lateral patella facet was resected using the oscillating saw. Small osteophytes were resected. I used pulse lavage to clean the bony surfaces of debris and dried bone. I cemented the tibial, femoral, and patellar components using 1 bag of methylmethacrylate with Gentamycin, then rechecked the stability at full extension, 15-30 degrees, and 90? flexion and verified scientologist of the entire arc of motion of the knee. The circulating nurse confirmed the sponge and needle counts were correct. I used pulse lavage to rinse the joint and wound. The extensor mechanism was closed with interrupted #1 Vicryl suture and #1 running Stratafix suture. The subcutaneous layer was closed with interrupted #1 Vicryl suture followed by 2-0 Stratafix and 3-0 Stratafix. Steri-Strips placed on the skin. Silver impregnated occlusive dressing applied to the wound. A light gauze wrap and Juan Jose bandage were placed. The patient was transferred to the recovery room in stable condition. There were no complications. Implants Medacta GMK spheriKA Femoral component SpheriKA size 3, tibial component size 2, vitamin-E flex insert, thickness 10mm. Estimated Blood Loss 50 Drains No Pathology None sent Complications No immediate complications Condition Stable Disposition PACU [facility] Billing Surgery - Charge Forward: Surgery Billing
--- NOTE | 2024-08-23 16:50 | PC.NURSE ---
This patient, Caro Powell, was admitted to [facility] Surg Room 327-01. Patient/family oriented to hospital policies and general routines including ID bracelet, bed and alarms, visiting hours, pain management, procedures, bathroom and other care routines, personal items, smoking policy, room service/diet, and visiting hours. Information on how to activate the Rapid Response Team has been discussed. Patient/Family are encouraged to report perceived risks to care and to ask questions if they do not understand what they are told or what they should do.
[2024-08-23] MEDS: ACETAMINOPHEN 325 MG TABLET 650 MG PO ×2 (17:40→22:30)
[2024-08-23] MEDS: CYCLOBENZAPRINE HCL 5 MG TABLET PO (20:43)
[2024-08-23] MEDS: guanFACINE HCL 1 MG TABLET 2 MG PO (20:43)
[2024-08-23] MEDS: rOPINIRole HCL 1 MG TABLET 2 MG BY MOUTH (20:43)
[2024-08-23] MEDS: MUPIROCIN 2% OINT 22 GM TUBE 1 APPLIC TOPICAL (20:44)
--- NOTE | 2024-08-23 22:55 | ECG_ITS ---
Test Date: 2024-08-23 23:08:48 Measurements Intervals [place] Rate: 74 P: 29 GA: 220 QRS: 7 QRSD: 79 T: 22 QT: 407 QTc: 452 Interpretive Statements SINUS RHYTHM WITH FIRST DEGREE AV BLOCK Compared to ECG 07/28/2024 12:22:26 Myocardial infarct finding no longer present Electronically Signed On 08-24-2024 14:22:31 CDT by Tello Santiago M.D.
--- NOTE | 2024-08-23 23:18 | PC.NURSE ---
2250 Patient calls out saying she is feeling SOB and her chest feels tight. VS done at this time BP 140/87 HR 68 RR 18 Spo2 99% on RA. Applied O2 1L for comfort. Spoke with Dr. Trevizo (electrical and electronic assembler ortho) new orders received for EKG and hospitalist consult. EKG done. Spoke with Lucia Richmond. Says she will come see patient shortly.
[2024-08-24] VITALS (10 sets, daily range): BP systolic 102–158; BP diastolic 43–76; PULSE 65–78; RESP 16–20; TEMP 36.1–36.9; O2SAT 96–100
--- NOTE | ~2024-08-24 | XR_ITS ---
EXAMINATION: [id number] DATE: 08/23/2024 15:27 INDICATION: Postoperative evaluation following left total knee arthroplasty. TECHNIQUE: Anteroposterior and lateral views of the left knee were obtained. COMPARISON: None. FINDINGS: Left total knee arthroplasty without patellar resurfacing appears well seated and in near anatomic al ignment. No fractures identified. Expected postoperative subcutaneous and intra-articular gas. IMPRESSION: 1. Left total knee arthroplasty, negative for postoperative purposes. Reviewed, dictated and finalized at location A.
--- NOTE | ~2024-08-24 | CT_ITS ---
Clinical Indication: Chest pain CT Scan of the Chest with Contrast: Technique: Contiguous sections were acquired throughout the chest after intravenous administration of 100 cc of Omnipaque 350. Dose reduction technique was used on this scan by utilizing automated expos ure control and iterative reconstruction technique. The dose-length product (DLP) was 530.50 mGy-cm. COMPARISON: 07/05/2020 Findings: There is no evidence of any significant mediastinal, hilar or axillary lymphadenopathy. There is no f illing defect in the pulmonary arterial tree to suggest pulmonary embolus. There is no evidence of ao rtic dissection or aneurysm. There is no evidence of pleural or pericardial effusion. The lungs are clear. No pulmonary nodules or infiltrates are noted. Images through the upper abdomen reveal stable bilateral adrenal nodules, most likely adenomas. Infra renal abdominal aortic aneurysm measures at least 4.0 cm in the visualized portion. Impression: No evidence of pulmonary embolus, aortic dissection, or aortic aneurysm. Clear lungs. Infrarenal abdominal aortic aneurysm measures 4.0 cm in diameter as imaged, though the distal portion is not included in the [id number]. Stable adrenal nodules, consistent with adenomas given lack of interval change. Reviewed, dictated and finalized at [facility]. Impression: No evidence of pulmonary embolus, aortic dissection, or aortic aneurysm. Clear lungs. Infrarenal abdominal aortic aneurysm measures 4.0 cm in diameter as imaged, tho ug the distal portion is not included in the [id number]. Stable adrenal nodules, consistent with adenomas given lack of interval change.
[2024-08-24] MEDS: hydrOXYzine HCL 25 MG TABLET 50 MG PO (00:34)
[2024-08-24 00:56] LABS: Troponin I < 0.012 ng/mL (0.000-0.034)
[2024-08-24 01:07] LABS: Estimated CRCL calculation 17 ml/min; Estimated Glomerular Filt Rate 19
[2024-08-24] MEDS: SODIUM CHLORIDE 0.9% IV 1,000 ML 999 ML IV CONT (02:05)
--- NOTE | 2024-08-24 02:39 | P.CONIM_ITS ---
Assessment and Plan Assessment and plan (1) Chest pain: Code(s): R07.9 - Chest pain, unspecified Status: Acute Assessment and Plan: * Low suspicion of ACS, however patient has been off of her Xarelto so she has an increased risk of potential pulmonary embolism. * EKG is ordered that shows normal sinus rhythm with a first-degree AV block at 75 beats per minute. * Troponins ordered to be trended with initial troponin normal. * CTA PE protocol is ordered. Patient's renal function is below threshold for contrast, however the benefit of knowing whether not patient needs emergent anticoagulation outweighs the risk at this time. Patient is ordered a L of IV fluids to be given post CT scan. * Continue to follow labs and imaging. * Should patient require emergent anticoagulation due to PE or ACS, would recommend heparin as it is most easily reversible. * Physical exam is overall reassuring and patient does appear to be most likely anxious causing her symptoms. * Hydroxyzine 50 mg p.o. x1 given for anxiety. Plan Thank you for allowing medicine to evaluate your patient. We will follow along. HPI Date of Consult Consult date: 08/24/24 Requesting Physician: Zhang Arndt MD Primary Care Provider: Bonifacio Baca MD Consult Narrative Narrative: Caro Powell is a 78 year old female with history of chronic back pain with left-sided radiculopathy, AFib on chronic anticoagulation with Xarelto, bilateral carotid bruits, chest pain, hyperlipidemia, hypothyroidism, osteoarthritis, restless leg syndrome and stress incontinence who is postop day 1 of a calipered, kinematically aligned total knee replacement of the left knee by Dr. Arndt. I was called for consult tonight as patient started feeling short of breath and developed chest pressure. Upon my arrival to see the patient she was in the bathroom, ambulating with a walker toward her bed as stated she was feeling better now that she did feel short of breath and she overall had mild pressure in the center of her chest. Patient has been off of her Xarelto that she takes for AFib at baseline for surgery. Review of Systems 2 Review of Systems: All systems reviewed & are unremarkable except as noted in HPI and below PMFSH Past Medical History Medical History (Updated 08/24/24 @ 02:45 by Sharlene Richmond, WOOD SCALER-C) Chest pain Cellulitis and abscess of hand Postmenopausal Back pain with left-sided radiculopathy Bilateral carotid bruits Body mass index [BMI] 27.0-27.9, adult (08/27/16) Body mass index [BMI] 28.0-28.9, adult (11/27/15) Burning with urination Chest pain in adult Closed nondisplaced fracture of greater tuberosity of left humerus Hematuria Hyperglycemia Left hip pain Left leg pain Lightheaded Osteoarthritis of left knee Primary generalized (osteo)arthritis Stress incontinence in female Hypertension Lumbar back pain Dyspnea on exertion Localized osteoarthritis of left knee Hypothyroidism (acquired) HLD (hyperlipidemia) Fracture of proximal end of left humerus (~12/2018) Carotid artery bruit RLS (restless legs syndrome) Surgical History Surgical History History of prolapse of bladder Hx of hysterectomy History of total right knee replacement (~06/18/18) Family History Family History Sibling Family history of diabetes mellitus in first degree relative Social History Social History Smoking packs per day: 1 Smoking cigarettes per day: 20.0 Years smoked: 20 Smoking pack-years: 20.00 Smoking status: Former smoker Tobacco type: cigarettes Smoking end date: 04/21/94 Additional smoking assessment comments: denies nicotine Alcohol intake: never Substance use: never Do You Feel Safe in your Home?: Yes Lack of Transportation: No Lack of Food: Never True Current Housing: I Have Housing Concerned About Future Housing: Decline to Answer Difficulty Paying Gas/Electric Bills: Decline to Answer Difficulty Paying for Meds: Decline to Answer Currently Unemployed: Decline to Answer Education: High School Diploma/GED Difficulty w/ Childcare or Family Care: Decline to Answer Living arrangements: with family Additional living arrangements comments: Gender identity (if verbalized by the patient): Female Spiritual care concerns: No Meds Home Medications and Allergies Home Medications ?Medication ?Instructions ?Recorded ?Confirmed ?Type rivaroxaban 2.5 mg tablet (Xarelto) 2.5 mg PO BID 07/08/22 08/23/24 History guanfacine 2 mg tablet 2 mg PO HS #90 tabs 07/23/23 08/23/24 Rx levothyroxine 88 mcg capsule 88 mcg PO DAILY 09/02/23 08/23/24 History hydrochlorothiazide 25 mg tablet 25 mg PO DAILY #90 tabs 01/07/24 08/23/24 Rx empagliflozin 10 mg tablet 10 mg PO DAILY #30 tabs 05/05/24 08/23/24 Rx (Jardiance) losartan 100 mg tablet See Rx Instructions .Route 05/05/24 08/23/24 Rx .COMPLEX #90 tabs simvastatin 40 mg tablet See Rx Instructions .Route 05/05/24 08/23/24 Rx .COMPLEX #90 tabs ezetimibe 10 mg tablet See Rx Instructions .Route 05/10/24 08/23/24 Rx .COMPLEX #90 tabs ropinirole 2 mg tablet See Rx Instructions .Route 05/18/24 08/23/24 Rx .COMPLEX #270 tabs multivitamin (Daily Multi-Vitamin 1 tablet PO DAILY 07/28/24 08/23/24 History tablet) mupirocin 2 % topical ointment 1 applic topical .COMPLEX #22 grams 07/29/24 08/23/24 Rx (Centany) metoprolol succinate 50 mg See Rx Instructions .Route 08/13/24 08/23/24 Rx tablet,extended release 24 hr .COMPLEX #90 tabs Allergies Allergy/AdvReac Type Severity Reaction Status Date / Time No Known Allergies Allergy Verified 08/23/24 10:55 Vital Signs Vital Signs - 24 hr 08/23/24 10:56 08/23/24 15:01 08/23/24 15:15 Temperature 97 F L 98.9 F Pulse Rate 66 65 66 Respiratory Rate 12 18 Blood Pressure 141/62 H 143/55 H 148/73 H Pulse Oximetry 99 98 100 Oxygen Delivery Room Air Simple Face Mask Simple Face Mask Oxygen Flow Rate 8 8 08/23/24 15:30 08/23/24 15:40 08/23/24 15:45 Temperature Pulse Rate 66 66 Respiratory Rate 18 19 Blood Pressure 141/79 H 149/100 H Pulse Oximetry 100 92 Oxygen Delivery Simple Face Mask Room Air Room Air Oxygen Flow Rate 8 08/23/24 16:00 08/23/24 16:15 08/23/24 16:30 Temperature Pulse Rate 69 64 85 Respiratory Rate 16 14 18 Blood Pressure 136/65 125/97 H 135/81 Pulse Oximetry 93 95 93 Oxygen Delivery Room Air Room Air Room Air Oxygen Flow Rate 08/23/24 16:40 08/23/24 16:41 08/23/24 16:56 Temperature 97.5 F L 97.4 F L 97.4 F L Pulse Rate 78 58 L 63 Respiratory Rate 17 18 18 Blood Pressure 133/83 124/58 L 108/52 L Pulse Oximetry 95 96 96 Oxygen Delivery Room Air Oxygen Flow Rate 08/23/24 17:00 08/23/24 17:26 08/23/24 18:26 Temperature 97.4 F L 97.6 F Pulse Rate 62 66 Respiratory Rate 18 18 Blood Pressure 145/56 H 138/54 L Pulse Oximetry 95 96 Oxygen Delivery Room Air Oxygen Flow Rate 08/23/24 20:00 08/23/24 21:52 08/24/24 00:35 Temperature 97.4 F L 98.5 F Pulse Rate 62 75 Respiratory Rate 20 16 Blood Pressure 149/68 H 102/54 L Pulse Oximetry 95 99 Oxygen Delivery Room Air Oxygen Flow Rate Exam 2 Const: General: comfortable and no acute distress Other: Pleasant, elderly female patient sitting on the side of the bed at this time in no acute distress. She reports midsternal chest pressure without radiation. HENMT: Mouth: Yes moist mucous membranes Eyes: General: appearance normal, both eyes and all related structures Neck: Neck: supple and no JVD Resp: Effort & Inspection: normal respiratory effort Auscultation: clear to auscultation bilaterally Cardio: Rate: regular rate Rhythm: regular rhythm Heart sounds: Murmur heart sound present Other: Grade 2 holosystolic murmur GI: GI Palp: Yes Soft to palpation and No Tenderness to palpation present (GI) Auscultation: normal bowel sounds Skin: General skin exam: normal color and no rashes or lesions noted Neuro: Speech: normal speech Motor exam (neuro): 5/5 motor strength present throughout and Normal motor muscle tone present throughout Other: No focal deficits Extrem: Other: Left knee in Juan Jose wrap. Psych: Mental Status: mental status grossly normal Affect: Anxious affect present Other: Patient acknowledges she is anxious. Results Labs 08/24/24 00:23 Labs: BMP 08/24/24 00:23 Creatinine 2.40 H Cardiac Enzymes 05/06/25 Range/Units 00:26 Troponin I < 0.012 (0.000-0.034) ng/mL Quality VTE Prophylaxis VTE prophylaxis: mechanical ordered
[2024-08-24] MEDS: ceFAZolin 2 GM/D5W 50 ML 2 GM/50 ML BAG IVPB ×2 (05:14→13:12)
[2024-08-24] MEDS: MUPIROCIN 2% OINT 22 GM TUBE 1 APPLIC TOPICAL ×3 (05:15→21:06)
[2024-08-24] MEDS: rOPINIRole HCL 1 MG TABLET 2 MG BY MOUTH ×3 (05:15→21:05)
[2024-08-24] MEDS: ACETAMINOPHEN 325 MG TABLET 650 MG PO ×4 (05:15→23:58)
[2024-08-24] MEDS: LEVOTHYROXINE SODIUM 88 MCG TABLET PO (05:15)
[2024-08-24 06:17] LABS: Basophils Percent Auto 0.1 % (0.2-1.2); Hemoglobin 10.5 g/dL (12.0-15.0); Immature Granulocyte Absolute 0.04 K/mm3 (0.00-0.031); Immature Granulocyte Percent A 0.3 % (0-0.5); Mean Corpuscular HGB Conc 31.8 g/dl (32-36); Mean Corpuscular Hemoglobin 29.5 pg (26-34); Mean Corpuscular Volume 92.7 fl (80-100); Mean Platelet Volume 11.5 fl (7.4-10.4); Monocytes Absolute Auto 0.9 K/mm3 (0.1-0.6); Monocytes Percent Auto 7.6 % (2.6-8.5); Neutrophils Absolute Auto 10.1 K/mm3 (1.3-6.7); Platelet Count Result 176 k/mm3 (150-375); Red Blood Count 3.56 M/mm3 (4.2-5.4); Red Cell Distribution Width 14.4 % (11.5-14.5); White Blood Count 11.7 K/mm3 (4.5-10.0)
[2024-08-24 06:34] LABS: Anion Gap 9 mmol/L (4-12); Blood Urea Nitrogen 35 mg/dL (7-17); Calcium 8.5 mg/dL (8.4-10.2); Carbon Dioxide 23 mmol/L (22-30); Chloride 100 mmol/L (98-107); Estimated CRCL calculation 17 ml/min; Estimated Glomerular Filt Rate 20; Glucose 128 mg/dL (65-110); Potassium 4.5 mmol/L (3.4-5.0); Sodium 132 mmol/L (137-145)
--- NOTE | 2024-08-24 07:53 | P.PNAN_ITS ---
Anes - Prog Note Post-Op Date/Time: 08/24/24 07:53 Cardiovascular status: normal Respiratory status: normal Airway patency: baseline Mental status: baseline Post-Op hydration status: normal Vital Signs: Last Vital Signs Temp 36.9 C 08/24/24 06:26 Pulse 78 08/24/24 06:26 Resp 20 08/24/24 06:26 BP 158/61 H 08/24/24 06:26 Pulse Ox 100 08/24/24 06:26 O2 Del Method Room Air 08/23/24 20:00 O2 Flow Rate 8 08/23/24 15:30 Pain Score (VAS): 0 I/O: Intake & Output 08/23/24 08/23/24 08/24/24 15:59 23:59 07:59 Intake Total 50 440 250 Balance 50 440 250 Laboratory Tests 08/24/24 06:07 08/24/24 06:07 08/23/24 08/23/24 08/24/24 10:45 10:46 00:23 WBC RBC Hgb Hct MCV MCH MCHC RDW Plt Count MPV Immature Gran % (Auto) Neut % (Auto) Lymph % (Auto) [place] % (Auto) Eos % (Auto) Baso % (Auto) Lymph # (Auto) [place] # (Auto) Eos # (Auto) Baso # (Auto) Abs Immat Gran (auto) Absolute Neuts (auto) Absolute Nucleated RBC Nucleated RBC % PT 13.0 INR 0.9 APTT 27.0 Sodium Potassium Chloride Carbon Dioxide Anion Gap BUN Creatinine 2.40 H Estim Creat Clear Calc 17 Estimated GFR 19 L Glucose Calcium Troponin I Blood Type A Positive Antibody Screen Negative 08/24/24 08/24/24 00:26 06:07 WBC 11.7 H RBC 3.56 L Hgb 10.5 L Hct 33.0 L MCV 92.7 MCH 29.5 MCHC 31.8 L RDW 14.4 Plt Count 176 MPV 11.5 H Immature Gran % (Auto) 0.3 Neut % (Auto) 86.0 H Lymph % (Auto) 6.0 L [place] % (Auto) 7.6 Eos % (Auto) 0.0 Baso % (Auto) 0.1 L Lymph # (Auto) 0.70 L [place] # (Auto) 0.9 H Eos # (Auto) 0.0 Baso # (Auto) 0.0 Abs Immat Gran (auto) 0.04 H Absolute Neuts (auto) 10.1 H Absolute Nucleated RBC 0.000 Nucleated RBC % 0.0 PT INR APTT Sodium 132 L Potassium 4.5 Chloride 100 Carbon Dioxide 23 Anion Gap 9 BUN 35 H Creatinine 2.34 H Estim Creat Clear Calc 17 Estimated GFR 20 L Glucose 128 H Calcium 8.5 Troponin I < 0.012 Blood Type Antibody Screen Post-procedural complaints: none Patient Feedback: Patient satisfied with anesthetic care.
[2024-08-24] MEDS: EZETIMIBE 10 MG TABLET BY MOUTH (08:35)
[2024-08-24] MEDS: SENNA/DOCUSATE SODIUM TABLET 2 TAB PO ×2 (08:35→17:02)
[2024-08-24] MEDS: LOSARTAN POTASSIUM 100 MG TABLET BY MOUTH (08:35)
[2024-08-24] MEDS: predniSONE 5 MG TABLET PO (08:36)
[2024-08-24] MEDS: EMPAGLIFLOZIN 10 MG TABLET PO (08:36)
[2024-08-24] MEDS: METOPROLOL SUCCINATE EXT REL 50 MG TABCR BY MOUTH (08:36)
[2024-08-24] MEDS: SIMVASTATIN 20 MG TABLET 40 MG BY MOUTH (08:37)
[2024-08-24] MEDS: polyethylene glycoL 3350 17 GM POWD.PACK PO (08:37)
[2024-08-24] MEDS: hydroCHLOROthiazide 25 MG TABLET PO (08:37)
[2024-08-24] MEDS: MULTIVITAMINS THERAPEUTIC TAB (*BKC) 1 TABLET PO (08:39)
--- NOTE | 2024-08-24 15:16 | P.PNIM_ITS ---
Progress Note: A&P Assessment and Plan (1) Chest pain: Code(s): R07.9 - Chest pain, unspecified Status: Acute Assessment and Plan: * Low suspicion of ACS, however patient has been off of her Xarelto so she has a n increased risk of potential pulmonary embolism. * EKG is ordered that shows normal sinus rhythm with a first-degree AV block at 75 beats per minute. * Troponins ordered to be trended with initial troponin normal. * CTA PE protocol is ordered. Patient's renal function is below threshold for contrast, however the benefit of knowing whether not patient needs emergent anticoagulation outweighs the risk at this time. Patient is ordered a L of IV fluids to be given post CT scan. * Continue to follow labs and imaging. * Should patient require emergent anticoagulation due to PE or ACS, would recommend heparin as it is most easily reversible. * No evidence of MSK pain * Hydroxyzine 50 mg p.o. x1 given for anxiety. Plan Thank you for allowing medicine to evaluate your patient. We will follow along. Subjective Date/time seen: 08/24/24 15:16 Interval history: Patient still complains of chest pressure. Troponins were negative. CTA shows no evidence of pulmonary embolism. Consider Cardiology. Review of Systems Review of Systems: All systems reviewed & are unremarkable except as noted in HPI and below Exam Const: General: comfortable and no acute distress Other: Pleasant, elderly female patient sitting on the side of the bed at this time in no acute distress. She reports midsternal chest pressure without radiation. HENMT: Mouth: Yes moist mucous membranes Eyes: General: appearance normal, both eyes and all related structures Neck: Neck: supple and no JVD Resp: Effort & Inspection: normal respiratory effort Auscultation: clear to auscultation bilaterally Cardio: Rate: regular rate Rhythm: regular rhythm Heart sounds: Murmur heart sound present Other: Grade 2 holosystolic murmur GI: Auscultation: normal bowel sounds Skin: General skin exam: normal color and no rashes or lesions noted Neuro: Speech: normal speech Motor exam (neuro): 5/5 motor strength present throughout and Normal motor muscle tone present throughout Other: No focal deficits Extrem: Other: Left knee in [place] wrap. Psych: Mental Status: mental status grossly normal Affect: Anxious affect present Other: Patient acknowledges she is anxious. Objective Data Vital Signs Vital Signs: Vital Signs - 24 hr 08/23/24 15:30 08/23/24 15:40 08/23/24 15:45 Temperature Pulse Rate 66 66 Respiratory Rate 18 19 Blood Pressure 141/79 H 149/100 H Pulse Oximetry 100 92 Oxygen Delivery Simple Face Mask Room Air Room Air Oxygen Flow Rate 8 08/23/24 16:00 08/23/24 16:15 08/23/24 16:30 Temperature Pulse Rate 69 64 85 Respiratory Rate 16 14 18 Blood Pressure 136/65 125/97 H 135/81 Pulse Oximetry 93 95 93 Oxygen Delivery Room Air Room Air Room Air Oxygen Flow Rate 08/23/24 16:40 08/23/24 16:41 08/23/24 16:56 Temperature 97.5 F L 97.4 F L 97.4 F L Pulse Rate 78 58 L 63 Respiratory Rate 17 18 18 Blood Pressure 133/83 124/58 L 108/52 L Pulse Oximetry 95 96 96 Oxygen Delivery Room Air Oxygen Flow Rate 08/23/24 17:00 08/23/24 17:26 08/23/24 18:26 Temperature 97.4 F L 97.6 F Pulse Rate 62 66 Respiratory Rate 18 18 Blood Pressure 145/56 H 138/54 L Pulse Oximetry 95 96 Oxygen Delivery Room Air Oxygen Flow Rate 08/23/24 20:00 08/23/24 21:52 08/24/24 00:35 Temperature 97.4 F L 98.5 F Pulse Rate 62 75 Respiratory Rate 20 16 Blood Pressure 149/68 H 102/54 L Pulse Oximetry 95 99 Oxygen Delivery Room Air Oxygen Flow Rate 08/24/24 04:00 08/24/24 06:26 08/24/24 08:36 Temperature 98.5 F Pulse Rate 68 78 78 Respiratory Rate 20 Blood Pressure 158/61 H Pulse Oximetry 100 Oxygen Delivery Oxygen Flow Rate 08/24/24 08:57 08/24/24 10:26 08/24/24 14:26 Temperature 96.9 F L 97.7 F Pulse Rate 65 65 Respiratory Rate 20 18 Blood Pressure 157/43 H 128/76 Pulse Oximetry 97 96 Oxygen Delivery Room Air Oxygen Flow Rate Intake/Output Intake/Output: Intake & Output 08/21/24 08/22/24 08/23/24 08/24/24 23:59 23:59 23:59 23:59 Intake Total 490 1210 Balance 490 1210 Meds/Results Medications: Active Medications Generic Name Dose Route Start Last Admin Trade Name Freq PRN Reason Stop Dose Admin Acetaminophen 650 mg 08/23/24 18:00 08/24/24 13:12 Acetaminophen 325 Mg Tablet PO 650 mg Q6HR LAURENT Administration Cyclobenzaprine HCl 5 mg 08/23/24 16:41 08/23/24 20:43 Cyclobenzaprine Hcl 5 Mg Tablet PO 5 mg Q8H PRN Administration Spasms Diphenhydramine HCl 25 mg 08/23/24 16:41 Diphenhydramine Hcl Inj 50 Mg/Ml Vial IV PUSH Q6H PRN Itching Ezetimibe 10 mg 08/24/24 09:00 08/24/24 08:35 Ezetimibe 10 Mg Tablet BY MOUTH 10 mg DAILY LAURENT Administration Empagliflozin 10 mg 08/24/24 09:00 08/24/24 08:36 Empagliflozin 10 Mg Tablet PO 10 mg DAILY LAURENT Administration Guanfacine HCl 2 mg 08/23/24 21:00 08/23/24 20:43 Guanfacine Hcl 1 Mg Tablet PO 2 mg HS LAURENT Administration Hydrochlorothiazide 25 mg 08/24/24 09:00 08/24/24 08:37 Hydrochlorothiazide 25 Mg Tablet PO 25 mg DAILY LAURENT Administration Hydromorphone HCl 1 mg 08/23/24 16:41 Hydromorphone Hcl Inj (*Crx) 1 Mg/Ml Syr IV PUSH Q2H PRN Breakthrough Pain Rated 7-10 or NPO Hydromorphone HCl 0.5 mg 08/23/24 16:41 Hydromorphone Hcl Inj (*Crx) 1 Mg/Ml Syr IV PUSH Q2H PRN Breakthrough Pain Rated 4-6 or NPO Levothyroxine Sodium 88 mcg 08/24/24 06:30 08/24/24 05:15 Levothyroxine Sodium 88 Mcg Tablet PO 88 mcg DAILY@0630 LAURENT Administration Losartan Potassium 100 mg 08/24/24 09:00 08/24/24 08:35 Losartan Potassium 100 Mg Tablet BY MOUTH 100 mg DAILY LAURENT Administration Metoprolol Succinate 50 mg 08/24/24 09:00 08/24/24 08:36 Metoprolol Succinate Ext Rel 50 Mg Tabcr BY MOUTH 50 mg DAILY LAURENT Administration Multivitamins Therapeutic 1 tablet 08/24/24 09:00 08/24/24 08:39 Multivitamins Therapeutic Tab (*Bkc) PO 1 tablet DAILY LAURENT Administration Mupirocin 1 applic 08/23/24 22:00 08/24/24 13:13 Mupirocin 2% Oint 22 Gm Tube TOPICAL 1 applic Q8HR LAURENT Administration Naloxone HCl 0.1 mg 08/23/24 16:41 Naloxone Hcl 0.4 Mg/Ml Vial IV PUSH Q2M PRN Opiate Reversal Ondansetron HCl 4 mg 08/23/24 16:41 Ondansetron Inj 4 Mg/2 Ml Vial IV PUSH Q4H PRN Nausea And Vomiting Oxycodone HCl 2.5 mg 08/23/24 16:41 Oxycodone Hcl (*Crx) 2.5 Mg Tab Ir PO Q4H PRN Pain Rated 4-6 Oxycodone HCl 5 mg 08/23/24 16:41 Oxycodone Hcl (*Crx) 5 Mg Tab Ir PO Q4H PRN Pain Rated 7-10 Polyethylene Glycol 17 gm 08/24/24 09:00 08/24/24 08:37 Polyethylene Glycol 3350 17 Gm Powd.Pack PO 17 gm QAM LAURENT Administration Prednisone 5 mg 08/24/24 08:00 08/24/24 08:36 Prednisone 5 Mg Tablet PO 5 mg DAILY@0800 LAURENT Administration Ropinirole HCl 2 mg 08/23/24 22:00 08/24/24 13:12 Ropinirole Hcl 1 Mg Tablet BY MOUTH 2 mg Q8HR LAURENT Administration Senna/Docusate Sodium 2 tab 08/23/24 17:00 08/24/24 08:35 Senna/Docusate Sodium Tablet PO 2 tab BID LAURENT Administration Simvastatin 40 mg 08/24/24 09:00 08/24/24 08:37 Simvastatin 20 Mg Tablet BY MOUTH 40 mg DAILY LAURENT Administration Tramadol HCl 50 mg 08/23/24 16:41 Tramadol Hcl (*Crx) 50 Mg Tablet PO Q4H PRN Pain Rated 1-3 Radiology Results: ITS Impressions Knee X-Ray 08/23/24 15:37 IMPRESSION: 1. Left total knee arthroplasty, negative for postoperative purposes. Chest CTA 08/24/24 06:06 Impression: No evidence of pulmonary embolus, aortic dissection, or aortic aneurysm. Clear lungs. Infrarenal abdominal aortic aneurysm measures 4.0 cm in diameter as imaged, though the distal portion is not included in the [id number]. Stable adrenal nodules, consistent with adenomas given lack of interval change. Labs Labs: Laboratory Results - last 24 hr 08/24/24 08/24/24 08/24/24 00:23 00:26 06:07 WBC 11.7 H RBC 3.56 L Hgb 10.5 L Hct 33.0 L MCV 92.7 MCH 29.5 MCHC 31.8 L RDW 14.4 Plt Count 176 MPV 11.5 H Immature Gran % (Auto) 0.3 Neut % (Auto) 86.0 H Lymph % (Auto) 6.0 L [place] % (Auto) 7.6 Eos % (Auto) 0.0 Baso % (Auto) 0.1 L Lymph # (Auto) 0.70 L [place] # (Auto) 0.9 H Eos # (Auto) 0.0 Baso # (Auto) 0.0 Abs Immat Gran (auto) 0.04 H Absolute Neuts (auto) 10.1 H Absolute Nucleated RBC 0.000 Nucleated RBC % 0.0 Sodium 132 L Potassium 4.5 Chloride 100 Carbon Dioxide 23 Anion Gap 9 BUN 35 H Creatinine 2.40 H 2.34 H Estim Creat Clear Calc 17 17 Estimated GFR 19 L 20 L Glucose 128 H Calcium 8.5 Troponin I < 0.012 Quality VTE Prophylaxis VTE prophylaxis: mechanical ordered Hospitalist [facility] Advance Care Plan I have confirmed that the patient's Advanced Care Plan is present, code status is documented, or surrogate decision maker is listed in patient medical record.: Yes Medication Reconciliation I have utilized all available resources to obtain, update and review the patients current medications (includes all prescriptions, OTC, herbals, cannabis, and nutritional supplements).: Yes
--- NOTE | 2024-08-24 16:14 | PM.PNORT ---
Progress Note: A&P Assessment and Plan (1) Status post total left knee replacement: Code(s): Z96.652 - Presence of left artificial knee joint Status: Acute (2) Chest pain: Code(s): R07.9 - Chest pain, unspecified Status: Acute Plan Postop day 1: Left total knee arthroplasty. Patient tolerated procedure well. No complications. She did have chest pain and shortness of breath last night. Cardiac work up and CT of the chest was negative for pulmonary embolism. Continues to have indigestion and bloating. Some worsening of her kidney function. Pain manageable with pain medication. No numbness or tingling. I recommend patient stay overnight and re-check labs in the morning. Consider discharge tomorrow. Appreciate hospitalist consult. Spoke with Dr. Arndt, we can re-start her blood thinner. Subjective Subjective Date/Time Seen: 08/24/24 16:14 Interval history: Patient seen and examined this morning. Last night she was having chest pain and SOB. She was feeling very anxious. Patient notes she had little pain. Notes she still has indigestion and bloating in her stomach. She states she has been drinking lots of water and has been urinating. Good progress with therapy. No numbness or tingling. No CP, SOB at this time. Review of Systems Review of Systems: All systems reviewed & are unremarkable except as noted in HPI and below Exam Narrative: 78-year-old overweight female. Resting comfortably in chair. Alert and oriented x3. No acute distress. Wearing compression socks bilaterally. Dressing intact with no drainage. Mild swelling. Slight ecchymosis. No erythema. No hematoma. No warmth. Range of motion limited due to pain. Calf nontender. Neurologic status intact. No varicosities. Distal pulses palpable. Light touch sensation intact. Good capillary refill. Objective Data Vital Signs Vital Signs: Vital Signs - 24 hr 08/23/24 16:15 08/23/24 16:30 08/23/24 16:40 Temperature 97.5 F L Pulse Rate 64 85 78 Respiratory Rate 14 18 17 Blood Pressure 125/97 H 135/81 133/83 Pulse Oximetry 95 93 95 Oxygen Delivery Room Air Room Air Room Air 08/23/24 16:41 08/23/24 16:56 08/23/24 17:00 Temperature 97.4 F L 97.4 F L Pulse Rate 58 L 63 Respiratory Rate 18 18 Blood Pressure 124/58 L 108/52 L Pulse Oximetry 96 96 Oxygen Delivery Room Air 08/23/24 17:26 08/23/24 18:26 08/23/24 20:00 Temperature 97.4 F L 97.6 F Pulse Rate 62 66 Respiratory Rate 18 18 Blood Pressure 145/56 H 138/54 L Pulse Oximetry 95 96 Oxygen Delivery Room Air 08/23/24 21:52 08/24/24 00:35 08/24/24 04:00 Temperature 97.4 F L 98.5 F Pulse Rate 62 75 68 Respiratory Rate 20 16 Blood Pressure 149/68 H 102/54 L Pulse Oximetry 95 99 Oxygen Delivery 08/24/24 06:26 08/24/24 08:02 08/24/24 08:35 Temperature 98.5 F Pulse Rate 78 74 Respiratory Rate 20 Blood Pressure 158/61 H Pulse Oximetry 100 Oxygen Delivery Room Air 08/24/24 08:36 08/24/24 08:57 08/24/24 10:26 Temperature 96.9 F L Pulse Rate 78 65 Respiratory Rate 20 Blood Pressure 157/43 H Pulse Oximetry 97 Oxygen Delivery Room Air 08/24/24 12:03 08/24/24 14:26 Temperature 97.7 F Pulse Rate 65 65 Respiratory Rate 18 Blood Pressure 128/76 Pulse Oximetry 96 Oxygen Delivery Intake/Output Intake/Output: Intake & Output 08/21/24 08/22/24 08/23/24 08/24/24 23:59 23:59 23:59 23:59 Intake Total 490 1210 Balance 490 1210 Meds/Results Medications: Active Medications Generic Name Dose Route Start Last Admin Trade Name Freq PRN Reason Stop Dose Admin Acetaminophen 650 mg 08/23/24 18:00 08/24/24 13:12 Acetaminophen 325 Mg Tablet PO 650 mg Q6HR LAURENT Administration Cyclobenzaprine HCl 5 mg 08/23/24 16:41 08/23/24 20:43 Cyclobenzaprine Hcl 5 Mg Tablet PO 5 mg Q8H PRN Administration Spasms Diphenhydramine HCl 25 mg 08/23/24 16:41 Diphenhydramine Hcl Inj 50 Mg/Ml Vial IV PUSH Q6H PRN Itching Ezetimibe 10 mg 08/24/24 09:00 08/24/24 08:35 Ezetimibe 10 Mg Tablet BY MOUTH 10 mg DAILY LAURENT Administration Empagliflozin 10 mg 08/24/24 09:00 08/24/24 08:36 Empagliflozin 10 Mg Tablet PO 10 mg DAILY LAURENT Administration Guanfacine HCl 2 mg 08/23/24 21:00 08/23/24 20:43 Guanfacine Hcl 1 Mg Tablet PO 2 mg HS LAURENT Administration Hydrochlorothiazide 25 mg 08/24/24 09:00 08/24/24 08:37 Hydrochlorothiazide 25 Mg Tablet PO 25 mg DAILY LAURENT Administration Hydromorphone HCl 1 mg 08/23/24 16:41 Hydromorphone Hcl Inj (*Crx) 1 Mg/Ml Syr IV PUSH Q2H PRN Breakthrough Pain Rated 7-10 or NPO Hydromorphone HCl 0.5 mg 08/23/24 16:41 Hydromorphone Hcl Inj (*Crx) 1 Mg/Ml Syr IV PUSH Q2H PRN Breakthrough Pain Rated 4-6 or NPO Levothyroxine Sodium 88 mcg 08/24/24 06:30 08/24/24 05:15 Levothyroxine Sodium 88 Mcg Tablet PO 88 mcg DAILY@0630 LAURENT Administration Losartan Potassium 100 mg 08/24/24 09:00 08/24/24 08:35 Losartan Potassium 100 Mg Tablet BY MOUTH 100 mg DAILY LAURENT Administration Metoprolol Succinate 50 mg 08/24/24 09:00 08/24/24 08:36 Metoprolol Succinate Ext Rel 50 Mg Tabcr BY MOUTH 50 mg DAILY LAURENT Administration Multivitamins Therapeutic 1 tablet 08/24/24 09:00 08/24/24 08:39 Multivitamins Therapeutic Tab (*Bkc) PO 1 tablet DAILY LAURENT Administration Mupirocin 1 applic 08/23/24 22:00 08/24/24 13:13 Mupirocin 2% Oint 22 Gm Tube TOPICAL 1 applic Q8HR LAURENT Administration Naloxone HCl 0.1 mg 08/23/24 16:41 Naloxone Hcl 0.4 Mg/Ml Vial IV PUSH Q2M PRN Opiate Reversal Ondansetron HCl 4 mg 08/23/24 16:41 Ondansetron Inj 4 Mg/2 Ml Vial IV PUSH Q4H PRN Nausea And Vomiting Oxycodone HCl 2.5 mg 08/23/24 16:41 Oxycodone Hcl (*Crx) 2.5 Mg Tab Ir PO Q4H PRN Pain Rated 4-6 Oxycodone HCl 5 mg 08/23/24 16:41 Oxycodone Hcl (*Crx) 5 Mg Tab Ir PO Q4H PRN Pain Rated 7-10 Polyethylene Glycol 17 gm 08/24/24 09:00 08/24/24 08:37 Polyethylene Glycol 3350 17 Gm Powd.Pack PO 17 gm QAM LAURENT Administration Prednisone 5 mg 08/24/24 08:00 08/24/24 08:36 Prednisone 5 Mg Tablet PO 5 mg DAILY@0800 LAURENT Administration Ropinirole HCl 2 mg 08/23/24 22:00 08/24/24 13:12 Ropinirole Hcl 1 Mg Tablet BY MOUTH 2 mg Q8HR LAURENT Administration Senna/Docusate Sodium 2 tab 08/23/24 17:00 08/24/24 08:35 Senna/Docusate Sodium Tablet PO 2 tab BID LAURENT Administration Simvastatin 40 mg 08/24/24 09:00 08/24/24 08:37 Simvastatin 20 Mg Tablet BY MOUTH 40 mg DAILY LAURENT Administration Tramadol HCl 50 mg 08/23/24 16:41 Tramadol Hcl (*Crx) 50 Mg Tablet PO Q4H PRN Pain Rated 1-3 Radiology Results: ITS Impressions Knee X-Ray 08/23/24 15:37 IMPRESSION: 1. Left total knee arthroplasty, negative for postoperative purposes. Chest CTA 08/24/24 06:06 Impression: No evidence of pulmonary embolus, aortic dissection, or aortic aneurysm. Clear lungs. Infrarenal abdominal aortic aneurysm measures 4.0 cm in diameter as imaged, though the distal portion is not included in the [id number]. Stable adrenal nodules, consistent with adenomas given lack of interval change. Labs Labs: Laboratory Results - last 24 hr 08/24/24 08/24/24 08/24/24 00:23 00:26 06:07 WBC 11.7 H RBC 3.56 L Hgb 10.5 L Hct 33.0 L MCV 92.7 MCH 29.5 MCHC 31.8 L RDW 14.4 Plt Count 176 MPV 11.5 H Immature Gran % (Auto) 0.3 Neut % (Auto) 86.0 H Lymph % (Auto) 6.0 L [place] % (Auto) 7.6 Eos % (Auto) 0.0 Baso % (Auto) 0.1 L Lymph # (Auto) 0.70 L [place] # (Auto) 0.9 H Eos # (Auto) 0.0 Baso # (Auto) 0.0 Abs Immat Gran (auto) 0.04 H Absolute Neuts (auto) 10.1 H Absolute Nucleated RBC 0.000 Nucleated RBC % 0.0 Sodium 132 L Potassium 4.5 Chloride 100 Carbon Dioxide 23 Anion Gap 9 BUN 35 H Creatinine 2.40 H 2.34 H Estim Creat Clear Calc 17 17 Estimated GFR 19 L 20 L Glucose 128 H Calcium 8.5 Troponin I < 0.012
[2024-08-24] MEDS: RIVAROXABAN 2.5 MG TABLET PO (17:02)
[2024-08-24] MEDS: BELLADONNA ALK/PHENOB ELIX 10 ML, MAG HYDROX/ALUMINUM HYD/SIMETH 30 ML, LIDOCAINE 2% VI... PO (17:03)
[2024-08-24] MEDS: guanFACINE HCL 1 MG TABLET 2 MG PO (21:06)
[2024-08-25] VITALS: PULSE 62
[2024-08-25 02:00] VITALS: BP 121/40; PULSE 62; RESP 18; TEMP 36; O2SAT 93
[2024-08-25 04:00] VITALS: BP 151/54; PULSE 64; PULSE 83; RESP 18; TEMP 36.3; O2SAT 97
[2024-08-25] MEDS: oxyCODONE HCL (*CRX) 2.5 MG TAB IR PO (04:13)
[2024-08-25] MEDS: ONDANSETRON INJ 4 MG/2 ML VIAL IV PUSH (04:13)
[2024-08-25] MEDS: ACETAMINOPHEN 325 MG TABLET 650 MG PO ×2 (05:44→13:49)
[2024-08-25] MEDS: MUPIROCIN 2% OINT 22 GM TUBE 1 APPLIC TOPICAL (05:44)
[2024-08-25] MEDS: rOPINIRole HCL 1 MG TABLET 2 MG BY MOUTH ×2 (05:44→13:49)
[2024-08-25] MEDS: LEVOTHYROXINE SODIUM 88 MCG TABLET PO (05:44)
[2024-08-25 08:00] VITALS: PULSE 68
[2024-08-25] MEDS: polyethylene glycoL 3350 17 GM POWD.PACK PO (08:30)
[2024-08-25] MEDS: predniSONE 5 MG TABLET PO (08:35)
[2024-08-25 08:36] VITALS: PULSE 76
[2024-08-25] MEDS: SIMVASTATIN 20 MG TABLET 40 MG BY MOUTH (08:36)
[2024-08-25] MEDS: EMPAGLIFLOZIN 10 MG TABLET PO (08:36)
[2024-08-25] MEDS: MULTIVITAMINS THERAPEUTIC TAB (*BKC) 1 TABLET PO (08:36)
[2024-08-25] MEDS: EZETIMIBE 10 MG TABLET BY MOUTH (08:36)
[2024-08-25] MEDS: METOPROLOL SUCCINATE EXT REL 50 MG TABCR BY MOUTH (08:36)
[2024-08-25] MEDS: hydroCHLOROthiazide 25 MG TABLET PO (08:36)
[2024-08-25] MEDS: RIVAROXABAN 2.5 MG TABLET PO (08:36)
[2024-08-25] MEDS: LOSARTAN POTASSIUM 100 MG TABLET BY MOUTH (08:36)
[2024-08-25] MEDS: SENNA/DOCUSATE SODIUM TABLET 2 TAB PO (08:36)
--- NOTE | 2024-08-25 10:17 | P.CONCA_ITS ---
Assessment and Plan Assessment and plan (1) Chest pain: Code(s): R07.9 - Chest pain, unspecified Status: Acute (2) Aortic stenosis, moderate: Code(s): I35.0 - Nonrheumatic aortic (valve) stenosis Status: Acute (3) Hypertension: Qualifiers: Hypertension type: primary hypertension Qualified Code(s): I10 - Essential (primary) hypertension Code(s): I10 - Essential (primary) hypertension Status: Acute (4) Abdominal aortic aneurysm (AAA): Code(s): I71.4 - Abdominal aortic aneurysm, without rupture Status: Acute (5) HLD (hyperlipidemia): Qualifiers: Hyperlipidemia type: mixed hyperlipidemia Qualified Code(s): E78.2 - Mixed hyperlipidemia Code(s): E78.5 - Hyperlipidemia, unspecified Status: Acute Plan Problem list: 1. Shortness of breath and chest pressure in the postop period-troponin negative; symptoms could be secondary to GERD versus PND versus aortic stenosis; no known history of CAD but she has risk factors including hypertension, hyperlipidemia, older female; CT chest negative for PE 2. Moderate aortic stenosis 3. AFib on chronic anticoagulation with Xarelto 4. Hypertension-controlled 5. Hyperlipidemia-on simvastatin and ezetimibe 6. Knee replacement in this hospitalization 7. Acute on chronic kidney disease 8. Infra renal AAA 4 cm Plan: -patient has moderate aortic stenosis and follows with her airport tower controller with routine echo every 6 months. Recommend follow-up in a month with echo -recommend outpatient workup for CAD with a stress test at cardiology follow-up -continue statin -continue metoprolol -continue empagliflozin -continue hydrochlorothiazide -hold losartan given KIM. Check renal function in 1-2 weeks post discharge and resume losartan if renal function is back to baseline -check renal function and electrolytes daily. Replace electrolytes as needed to keep potassium greater than 4 and magnesium greater than 2 -continue Xarelto -management of other medical problems per primary team Thank you for allowing us to participate in the care of Ms. Powell. Cardiology will sign off. Please call us with any questions. History of Present Illness History of Present Illness Consult date/time: 08/25/24 10:17 Reason For Visit: primary oa left knee Narrative: 78-year-old female with past medical history of AFib on chronic anticoagulation with Xarelto, moderate aortic stenosis, bilateral carotid bruit, hyperlipidemia, hypothyroidism, chronic back pain with left-sided radiculopathy, osteoarthritis, stress incontinence, restless leg syndrome, CKD stage III (baseline creatinine around 1.8), underwent calipered, kinematically aligned total left knee replacement by Dr. Arndt on 08/23/24. Postprocedure patient had shortness of breath and chest pressure. Patient states that she had a late on the night of her knee surgery. She woke up around 2:00 a.m. in the morning with pressure in the center of her chest and diaphoresis. This lasted into the morning hours and felt better after sitting up. There is no radiation of pain into her neck arm jaw. She has not had recurrence of chest pressure since that episode. She did not have similar symptoms prior to her surgery. She attributes her symptoms to indigestion. She has not had a bowel movement since she has been in the hospital. No dizziness, palpitations, lightheadedness, presyncope, syncope, orthopnea, PND, recent weight gain, leg swelling, nausea, emesis, fever, chills, headache. Cardiology is consulted for further recommendation. Troponin negative. Workup: Creatinine: 2.34 (baseline around 1.8) Troponin: Negative EKG: Sinus rhythm with first-degree AV block TTE in 2020: LVEF 74%, grade 1 diastolic dysfunction, mild MR, moderate aortic stenosis with mean gradient of 19 mm Hg, aortic valve area of 1.1 centimeters sq CTA chest: No PE, aortic dissection, aortic aneurysm. Infrarenal abdominal aortic aneurysm 4 cm. Review of Systems 2 Review of Systems: A complete review of systems was performed and pertinent positives mentioned in the [facility] Past Medical History Medical History (Updated 08/24/24 @ 07:23 by ALLAN Stafford) Chest pain Cellulitis and abscess of hand Postmenopausal Back pain with left-sided radiculopathy Bilateral carotid bruits Body mass index [BMI] 27.0-27.9, adult (08/27/16) Body mass index [BMI] 28.0-28.9, adult (11/27/15) Burning with urination Chest pain in adult Closed nondisplaced fracture of greater tuberosity of left humerus Hematuria Hyperglycemia Left hip pain Left leg pain Lightheaded Osteoarthritis of left knee Primary generalized (osteo)arthritis Stress incontinence in female Hypertension Lumbar back pain Dyspnea on exertion Localized osteoarthritis of left knee Hypothyroidism (acquired) HLD (hyperlipidemia) Fracture of proximal end of left humerus (~12/2018) Carotid artery bruit RLS (restless legs syndrome) Surgical History Surgical History (Updated 08/24/24 @ 07:23 by ALLAN Stafford) History of prolapse of bladder Hx of hysterectomy History of total right knee replacement (~06/18/18) Family History Family History Sibling Family history of diabetes mellitus in first degree relative Social History Social History Smoking packs per day: 1 Smoking cigarettes per day: 20.0 Years smoked: 20 Smoking pack-years: 20.00 Smoking status: Former smoker Tobacco type: cigarettes Smoking end date: 04/21/94 Additional smoking assessment comments: denies nicotine Alcohol intake: never Substance use: never Do You Feel Safe in your Home?: Yes Lack of Transportation: No Lack of Food: Never True Current Housing: I Have Housing Concerned About Future Housing: Decline to Answer Difficulty Paying Gas/Electric Bills: Decline to Answer Difficulty Paying for Meds: Decline to Answer Currently Unemployed: Decline to Answer Education: High School Diploma/GED Difficulty w/ Childcare or Family Care: Decline to Answer Living arrangements: with family Additional living arrangements comments: Gender identity (if verbalized by the patient): Female Spiritual care concerns: No Meds Home Medications and Allergies Home Medications ?Medication ?Instructions ?Recorded ?Confirmed ?Type rivaroxaban 2.5 mg tablet (Xarelto) 2.5 mg PO BID 07/08/22 08/23/24 History guanfacine 2 mg tablet 2 mg PO HS #90 tabs 07/23/23 08/23/24 Rx levothyroxine 88 mcg capsule 88 mcg PO DAILY 09/02/23 08/23/24 History hydrochlorothiazide 25 mg tablet 25 mg PO DAILY #90 tabs 01/07/24 08/23/24 Rx empagliflozin 10 mg tablet 10 mg PO DAILY #30 tabs 05/05/24 08/23/24 Rx (Jardiance) losartan 100 mg tablet See Rx Instructions .Route 05/05/24 08/23/24 Rx .COMPLEX #90 tabs simvastatin 40 mg tablet See Rx Instructions .Route 05/05/24 08/23/24 Rx .COMPLEX #90 tabs ezetimibe 10 mg tablet See Rx Instructions .Route 05/10/24 08/23/24 Rx .COMPLEX #90 tabs ropinirole 2 mg tablet See Rx Instructions .Route 05/18/24 08/23/24 Rx .COMPLEX #270 tabs multivitamin (Daily Multi-Vitamin 1 tablet PO DAILY 07/28/24 08/23/24 History tablet) mupirocin 2 % topical ointment 1 applic topical .COMPLEX #22 grams 07/29/24 08/23/24 Rx (Centany) metoprolol succinate 50 mg See Rx Instructions .Route 08/13/24 08/23/24 Rx tablet,extended release 24 hr .COMPLEX #90 tabs oxycodone-acetaminophen 5 mg-325 1 - 2 tablet PO Q4-6H PRN pain 7 08/24/24 Rx mg tablet days #30 tabs prednisone 5 mg tablet 5 mg PO DAILY 3 weeks #21 tabs 08/24/24 Rx Allergies Allergy/AdvReac Type Severity Reaction Status Date / Time No Known Allergies Allergy Verified 08/23/24 10:55 Vital Signs Vital Signs - 24 hr 08/24/24 10:26 08/24/24 12:03 08/24/24 14:26 Temperature 36.1 C L 36.5 C Pulse Rate 65 65 65 Respiratory Rate 20 18 Blood Pressure 157/43 H 128/76 Pulse Oximetry 97 96 Oxygen Delivery 08/24/24 16:00 08/24/24 20:00 08/24/24 20:00 Temperature 36.5 C Pulse Rate 66 65 Respiratory Rate 16 Blood Pressure 125/58 L Pulse Oximetry 97 Oxygen Delivery Room Air 08/24/24 20:00 08/25/24 00:00 08/25/24 02:00 Temperature 36.0 C L Pulse Rate 65 62 62 Respiratory Rate 18 Blood Pressure 121/40 L Pulse Oximetry 93 Oxygen Delivery 08/25/24 04:00 08/25/24 04:00 08/25/24 08:36 Temperature 36.3 C L Pulse Rate 83 64 76 Respiratory Rate 18 Blood Pressure 151/54 H Pulse Oximetry 97 Oxygen Delivery Exam 2 Narrative: General: Alert oriented x3, no acute distress Neck: Supple, no JVD, carotid bruit + Chest: Bilaterally clear to auscultation, no rales or rhonchi Cardiac: S1, S2 +, regular rate, regular rhythm, systolic ejection murmur best heard at right upper sternal border Extremities: No pedal edema, no skin rash Neurologic: Alert and oriented x3, no focal neurological deficits Results Labs and Meds 08/24/24 06:07 08/24/24 06:07 Lab results: Intake and Output 08/24/24 08/25/24 08/25/24 23:59 07:59 15:59 Intake Total 480 200 Balance 480 200 Intake: Oral 480 200 Other: # Unmeasured Voids 4 2
[2024-08-25] MEDS: oxyCODONE HCL (*CRX) 5 MG TAB IR PO (10:30)
[2024-08-25 12:00] VITALS: PULSE 81
[2024-08-25 13:20] LABS: Basophils Percent Auto 0.2 % (0.2-1.2); Eosinophils Absolute Auto 0.1 K/mm3 (0-0.3); Eosinophils Percent Auto 0.6 % (0-4.4); Hematocrit 34.5 % (37.0-47.0); Hemoglobin 10.8 g/dL (12.0-15.0); Immature Granulocyte Absolute 0.09 K/mm3 (0.00-0.031); Immature Granulocyte Percent A 0.6 % (0-0.5); Lymphocytes Absolute Auto 1.13 K/mm3 (0.9-3.2); Lymphocytes Percent Auto 8.1 % (18.3-44.2); Mean Corpuscular HGB Conc 31.3 g/dl (32-36); Mean Corpuscular Hemoglobin 29.3 pg (26-34); Mean Corpuscular Volume 93.8 fl (80-100); Mean Platelet Volume 11.9 fl (7.4-10.4); Monocytes Absolute Auto 1.2 K/mm3 (0.1-0.6); Monocytes Percent Auto 8.5 % (2.6-8.5); Neutrophils Absolute Auto 11.4 K/mm3 (1.3-6.7); Platelet Count Result 198 k/mm3 (150-375); Red Blood Count 3.68 M/mm3 (4.2-5.4); White Blood Count 13.9 K/mm3 (4.5-10.0)
[2024-08-25 13:29] LABS: Anion Gap 9 mmol/L (4-12); Blood Urea Nitrogen 38 mg/dL (7-17); Calcium 8.8 mg/dL (8.4-10.2); Carbon Dioxide 27 mmol/L (22-30); Chloride 96 mmol/L (98-107); Estimated CRCL calculation 18 ml/min; Estimated Glomerular Filt Rate 21; Glucose 166 mg/dL (65-110); Potassium 4.6 mmol/L (3.4-5.0); Sodium 132 mmol/L (137-145)
--- NOTE | 2024-08-25 14:05 | PM.DS ---
DS: Admitting Diagnosis Discharge Date 08/25/24. Admitting Diagnosis Knee arthritis. DS: Discharge Diagnosis Discharge Diagnosis (1) Status post total left knee replacement: Code(s): Z96.652 - Presence of left artificial knee joint Status: Acute Assessment and Plan: Postop day 2: Left total knee arthroplasty. Patient tolerated procedure well. She did have some chest pain the night after surgery. Cardiology was consulted and recommendations given. Chest pain has resolved. Hospitalist has cleared patient for discharge medically. She does have chronic kidney disease and had a decrease in kidney function after surgery. Labs improving and patient has not had any issues urinating. She has follow up with her kidney specialist in a few weeks. She will follow up with her PCP. Pain manageable with pain medication. No numbness or tingling. We had a lengthy discussion regarding postoperative wound care, limitations, expectations, and exercises. Patient shows good understanding. Amye has had initial physical therapy and is tolerating it well. DVT prophylaxis: 81 mg baby aspirin b.i.d. for 14 days. Pain medication: Percocet. Avoid NSAIDs. Prednisone. Patient has followup appointment with Dr. Arndt in 3 weeks. DS: Summary Hospital Course Reason for hospitalization: Total knee arthroplasty Hospital Course: She did have some chest pain the night after surgery. Cardiology was consulted and recommendations given. Chest pain has resolved. Hospitalist has cleared patient for discharge medically. She does have chronic kidney disease and had a decrease in kidney function after surgery. Labs improving and patient has not had any issues urinating. Has had initial PT/OT. Status at Discharge Functional status at discharge: uses cane/walker Overall status at discharge: patient is progressing back to baseline Time Spent with Patient Time attestation: Total time spent providing and/or coordinating discharge services: Exam Narrative: 78-year-old overweight female. Resting comfortably in chair. Alert and oriented x3. No acute distress. Wearing compression socks bilaterally. Dressing intact without drainage. Moderate swelling. No ecchymosis. Minimal erythema. No hematoma. Range of motion limited due to pain. Calf nontender. Neurologic status intact. No varicosities. Distal pulses palpable. DS: Data Data Completed and Pending Labs on day of discharge: Labs from last 24 hours 08/25/24 13:06 WBC 13.9 H RBC 3.68 L Hgb 10.8 L Hct 34.5 L MCV 93.8 MCH 29.3 MCHC 31.3 L RDW 15.0 H Plt Count 198 MPV 11.9 H Immature Gran % (Auto) 0.6 H Neut % (Auto) 82.0 H Lymph % (Auto) 8.1 L [place] % (Auto) 8.5 Eos % (Auto) 0.6 Baso % (Auto) 0.2 Lymph # (Auto) 1.13 [place] # (Auto) 1.2 H Eos # (Auto) 0.1 Baso # (Auto) 0.0 Abs Immat Gran (auto) 0.09 H Absolute Neuts (auto) 11.4 H Absolute Nucleated RBC 0.000 Nucleated RBC % 0.0 Sodium 132 L Potassium 4.6 Chloride 96 L Carbon Dioxide 27 Anion Gap 9 BUN 38 H Creatinine 2.24 H Estim Creat Clear Calc 18 Estimated GFR 21 L Glucose 166 H Calcium 8.8 Discharge Plan Discharge Attending physician on discharge: Zhang Arndt Consulting providers: Sharlene Richmond; Cara Falcon Discharging Clinician: Ruby De Jesus Anticipated Discharge Date/Time: 08/25/24 14:04 Patient Disposition: Home Activity: may shower and other - see discharge instructions Diet: as tolerated Wound Care Instructions: follow printed instructions Discharge Instructions: Hold Losartan due KIM on CKD. Please discuss with your PCP/nephrology before resuming. Please discuss with your PCP if your BP is elevated See green sheets for orthopedic instructions. Patient Instructions: Rivaroxaban (By mouth) Patient Language: Libyan Follow-up/Referrals: Ruby De Jesus PA [Physician Assistant Customer Service Manager] - Discharge Medications: New prednisone 5 mg tablet 5 mg PO DAILY 21 Days Qty: 21 0RF oxycodone-acetaminophen 5-325 mg tablet 1 - 2 tablet PO Q4-6H PRN (Reason: pain) 7 Days Qty: 30 0RF Continued Xarelto 2.5 mg tablet 2.5 mg PO BID hydrochlorothiazide 25 mg tablet 25 mg PO DAILY Qty: 90 3RF levothyroxine 88 mcg capsule 88 mcg PO DAILY Jardiance 10 mg tablet 10 mg PO DAILY Qty: 30 7RF multivitamin [Daily Multi-Vitamin] Tablet 1 tablet PO DAILY guanfacine 2 mg tablet 2 mg PO HS Qty: 90 2RF simvastatin 40 mg tablet See Rx Instructions .ROUTE .COMPLEX Qty: 90 2RF Dose Instruction: TAKE 1 TABLET BY MOUTH DAILY Rx Instructions: TAKE 1 TABLET BY MOUTH DAILY ezetimibe 10 mg tablet See Rx Instructions .ROUTE .COMPLEX Qty: 90 2RF Dose Instruction: TAKE 1 TABLET BY MOUTH DAILY Rx Instructions: TAKE 1 TABLET BY MOUTH DAILY ropinirole 2 mg tablet See Rx Instructions .ROUTE .COMPLEX Qty: 270 2RF Dose Instruction: TAKE 1 TABLET BY MOUTH THREE TIMES A DAY Rx Instructions: TAKE 1 TABLET BY MOUTH THREE TIMES A DAY mupirocin [Centany] 2 % ointment 1 applic topical .COMPLEX Qty: 22 0RF Rx Instructions: 1 applic topically TID to the inside of the nose; metoprolol succinate 50 mg tablet extended release 24 hr See Rx Instructions .ROUTE .COMPLEX Qty: 90 2RF Dose Instruction: TAKE 1 TABLET BY MOUTH EVERY DAY Rx Instructions: TAKE 1 TABLET BY MOUTH EVERY DAY Held losartan 100 mg tablet See Rx Instructions .ROUTE .COMPLEX Qty: 90 2RF Hold Instructions: Resume on 09/15/24. Hold due KIM on CKD. Please discuss with your PCP/nephrology before resuming Dose Instruction: TAKE 1 TABLET BY MOUTH DAILY Rx Instructions: TAKE 1 TABLET BY MOUTH DAILY Date of admission: 08/24/24 16:13 Primary Care Provider: Bonifacio Baca Admitting Provider: Zhang Arndt Attending physician on admission: Zhang Arndt Condition: Stable
--- NOTE | 2024-08-25 18:09 | P.PNIM_ITS ---
Progress Note: A&P Assessment and Plan (1) Chest pain: Code(s): R07.9 - Chest pain, unspecified Status: Acute Assessment and Plan: * Low suspicion of ACS, however patient has been off of her Xarelto so she has a n increased risk of potential pulmonary embolism. * EKG is ordered that shows normal sinus rhythm with a first-degree AV block at 75 beats per minute. * Troponins ordered to be trended with initial troponin normal. * CTA PE protocol is ordered. Patient's renal function is below threshold for contrast, however the benefit of knowing whether not patient needs emergent anticoagulation outweighs the risk at this time. Patient is ordered a L of IV fluids to be given post CT scan. * Continue to follow labs and imaging. * Should patient require emergent anticoagulation due to PE or ACS, would recommend heparin as it is most easily reversible. * No evidence of MSK pain * Hydroxyzine 50 mg p.o. x1 given for anxiety. 08/25:Patient reports her chest pain resolved after receiving GI cocktail. Chest pain possible to stress/GERD.Cardiology evaluated the patient and recommend outpatient workup for CAD with a stress test.Holding losartan due to KIM on CKD and advised to follow up with PCP if increase in BP. Plan Thank you for allowing medicine to evaluate your patient. We will follow along. Subjective Date/time seen: 08/25/24 18:09 Interval history: Patient reports her chest pain resolved after receiving GI cocktail. Chest pain possible to stress/GERD.Cardiology evaluated the patient and recommend outpatient workup for CAD with a stress test.Holding losartan due to KIM on CKD and advised to follow up with PCP if increase in BP. Review of Systems Review of Systems: All systems reviewed & are unremarkable except as noted in HPI and below Exam Const: General: comfortable and no acute distress Other: Pleasant, elderly female patient sitting on the side of the bed at this time in no acute distress. She reports midsternal chest pressure without radiation. HENMT: Mouth: Yes moist mucous membranes Eyes: General: appearance normal, both eyes and all related structures Neck: Neck: supple and no JVD Resp: Effort & Inspection: normal respiratory effort Auscultation: clear to auscultation bilaterally Cardio: Rate: regular rate Rhythm: regular rhythm Heart sounds: Murmur heart sound present Other: Grade 2 holosystolic murmur GI: Auscultation: normal bowel sounds Skin: General skin exam: normal color and no rashes or lesions noted Neuro: Speech: normal speech Motor exam (neuro): 5/5 motor strength present throughout and Normal motor muscle tone present throughout Other: No focal deficits Extrem: Other: Left knee in Juan Jose wrap. Psych: Mental Status: mental status grossly normal Affect: Anxious affect present Other: Patient acknowledges she is anxious. Objective Data Vital Signs Vital Signs: Vital Signs - 24 hr 08/24/24 20:00 08/24/24 20:00 08/24/24 20:00 Temperature 97.7 F Pulse Rate 65 65 Respiratory Rate 16 Blood Pressure 125/58 L Pulse Oximetry 97 Oxygen Delivery Room Air 08/25/24 00:00 08/25/24 02:00 08/25/24 04:00 Temperature 96.8 F L Pulse Rate 62 62 83 Respiratory Rate 18 Blood Pressure 121/40 L Pulse Oximetry 93 Oxygen Delivery 08/25/24 04:00 08/25/24 08:00 08/25/24 08:00 Temperature 97.3 F L Pulse Rate 64 68 Respiratory Rate 18 Blood Pressure 151/54 H Pulse Oximetry 97 Oxygen Delivery Room Air 08/25/24 08:36 08/25/24 12:00 Temperature Pulse Rate 76 81 Respiratory Rate Blood Pressure Pulse Oximetry Oxygen Delivery Intake/Output Intake/Output: Intake & Output 08/22/24 08/23/24 08/24/24 08/25/24 23:59 23:59 23:59 23:59 Intake Total 490 1690 200 Balance 490 1690 200 Meds/Results Radiology Results: ITS Impressions Knee X-Ray 08/23/24 15:37 IMPRESSION: 1. Left total knee arthroplasty, negative for postoperative purposes. Chest CTA 08/24/24 06:06 Impression: No evidence of pulmonary embolus, aortic dissection, or aortic aneurysm. Clear lungs. Infrarenal abdominal aortic aneurysm measures 4.0 cm in diameter as imaged, though the distal portion is not included in the [id number]. Stable adrenal nodules, consistent with adenomas given lack of interval change. Labs Labs: Laboratory Results - last 24 hr 08/25/24 13:06 WBC 13.9 H RBC 3.68 L Hgb 10.8 L Hct 34.5 L MCV 93.8 MCH 29.3 MCHC 31.3 L RDW 15.0 H Plt Count 198 MPV 11.9 H Immature Gran % (Auto) 0.6 H Neut % (Auto) 82.0 H Lymph % (Auto) 8.1 L [place] % (Auto) 8.5 Eos % (Auto) 0.6 Baso % (Auto) 0.2 Lymph # (Auto) 1.13 [place] # (Auto) 1.2 H Eos # (Auto) 0.1 Baso # (Auto) 0.0 Abs Immat Gran (auto) 0.09 H Absolute Neuts (auto) 11.4 H Absolute Nucleated RBC 0.000 Nucleated RBC % 0.0 Sodium 132 L Potassium 4.6 Chloride 96 L Carbon Dioxide 27 Anion Gap 9 BUN 38 H Creatinine 2.24 H Estim Creat Clear Calc 18 Estimated GFR 21 L Glucose 166 H Calcium 8.8 Quality VTE Prophylaxis VTE prophylaxis: mechanical ordered Hospitalist MIPS Advance Care Plan I have confirmed that the patient's Advanced Care Plan is present, code status is documented, or surrogate decision maker is listed in patient medical record.: Yes Medication Reconciliation I have utilized all available resources to obtain, update and review the patients current medications (includes all prescriptions, OTC, herbals, cannabis, and nutritional supplements).: Yes
== END 2024-08-25 14:48 | disposition home or self-care (01) ==
LOC: ANHSURGERY 16:36 → ANH3MEDSUR 16:36
PROVIDERS: Anesthesiology; Nurse Practitioner Adult Health; Physician Assistant Surgical; Admitting Provider Orthopaedic Surgery; PCP Emergency Medicine; Visit Provider Orthopaedic Surgery
PROC: (CPT 27447; principal; 2024-08-23 12:00)
DX: M17.12 Unilateral primary osteoarthritis, left knee (principal); R07.89 Other chest pain; R06.02 Shortness of breath; I12.9 Hypertensive chronic kidney disease with stage 1 through stage 4 chronic kidney disease, or unspecified chronic kidney disease; N18.30 Chronic kidney disease, stage 3 unspecified; N17.9 Acute kidney failure, unspecified; I35.0 Nonrheumatic aortic (valve) stenosis; I71.43 Infrarenal abdominal aortic aneurysm, without rupture; R09.89 Other specified symptoms and signs involving the circulatory and respiratory systems; I48.91 Unspecified atrial fibrillation; E78.5 Hyperlipidemia, unspecified; M54.10 Radiculopathy, site unspecified; E03.9 Hypothyroidism, unspecified; N39.3 Stress incontinence (female) (male); E66.9 Obesity, unspecified; G25.81 Restless legs syndrome; Z68.30 Body mass index [BMI] 30.0-30.9, adult; Z78.0 Asymptomatic menopausal state; Z79.01 Long term (current) use of anticoagulants; Z79.84 Long term (current) use of oral hypoglycemic drugs; Z79.899 Other long term (current) drug therapy; Z87.891 Personal history of nicotine dependence; Z90.710 Acquired absence of both cervix and uterus; Z96.651 Presence of right artificial knee joint
CPT/HCPCS: 27447; 36415; 71275; 73560; 80048; 82565; 84484; 85025; 85610; 85730; 86850; 86900; 86901; 93005; 97110; 97116; 97161; 97165; 97530; 97535; A9270; C1776; G0378; G0379; J0171; J0690; J1100; J1885; J2003; J2270; J2405; J2704; J2795; J3010; J7030; J7120; J7512; Q9967

== ENCOUNTER 2024-09-06 10:55 | Outpatient (CLI) | payer MEDICARE, SELFPAY ==
[2024-09-06 11:29] LABS: Anion Gap 8 mmol/L (4-12); Blood Urea Nitrogen 36 mg/dL (7-17); Calcium 8.9 mg/dL (8.4-10.2); Carbon Dioxide 32 mmol/L (22-30); Chloride 94 mmol/L (98-107); Estimated Glomerular Filt Rate 32; Glucose 109 mg/dL (65-110); Potassium 3.5 mmol/L (3.4-5.0); Sodium 134 mmol/L (137-145)
[2024-09-06 11:30] LABS: Add Urine Microscopic? NO; Appearance Urine Clear (Clear); Bilirubin Urine Negative (Negative); Blood Urine Negative (Negative); Color Urine Yellow (Yellow); Glucose Urine UA 2+ mg/dL (Negative); Ketones Urine Negative (Negative); Leukocyte Esterase Ur Negative LEU/UL (Negative); Nitrate Urine Negative (Negative); Protein Urine Negative (Negative); Specific Grav Ur 1.009 (1.001-1.035); Urobilinogen Urine 0.2 mg/dL (<2.0)
--- OUTSIDE RECORDS SUMMARY | 2024-09-06 11:31 | XMS_ITS | Clinical Summary ---
Author Organization [facility] Address [address] [place] [id number] Care Team Providers Care Fitness Leader Name Role Phone Bonifacio Baca MD Primary Care Provider [phone] Allergies No known active allergies Social History Tobacco Use Types Packs/Day Years Used Date Smoking Tobacco: Never Assessed Comments Unknown Sex and Gender Information Value Date Recorded Sex Assigned at Female 09/06/2024 10:10 AM CDT Legal Sex Female 5:35 PM CDT Gender [...] complete this topic Insurance [employer] Care Teams Fitness Leader Relationship Specialty Start Date End Date Bonifacio Baca MD [address] [place], [place] [phone] PCP - General INTERNAL MEDICINE 07/06/21
--- OUTSIDE RECORDS SUMMARY | 2024-09-06 11:32 | XMS_ITS | Clinical Summary ---
Author Organization [facility] Building [facility] Address [address] [place] [address] Care Team Providers Care Service Tech Name Role Phone Bonifacio Baca MD Primary [...] Encounters Date Type Department Care Team Description 08/27/2024 Orders Only [facility] Medical [facility] Cardiology [address] [facility] [address] [place] [phone] Nory Francisco MD 07/28/2024 Telephone [facility] Cardiology [address] [place] [address] [address] [place] [phone] Rowan Salcedo MD 07/27/2024 Telephone [facility] Cardiology [address] [place] [address] [address] [place] [phone] Rowan Salcedo MD 07/22/2024 Telephone [facility] Cardiology [address] [facility] [address] [place] [phone] Rowan Salcedo MD 07/15/2024 Results Follow-Up [facility] [address] [place] [phone] Marce Chappell MD Thyroid Function [place], T4, free 07/14/2024 10:30 AM CDT Lab [address] [phone] Postablative hypothyroidism 07/14/2024 10:15 AM CDT Office Visit [facility] [id number] [place] [address] [address] [address] Marce Chappell MD Postablative hypothyroidism (Primary Dx); Essential hypertension; Mixed hyperlipidemia 07/13/2024 Telephone [facility] Diabetes [facility] Endocrinology [address] [place] [address] Marce Chappell MD request to pcp for insurance referral from Last 3 Months Surgical History Surgery [...] 36.2 C (97.1 F) 03/15/2020 1:55 PM QUALITY FACILITATOR Respiratory Rate 16 07/14/2024 10:12 AM CDT Oxygen Saturation 99% 04/19/2024 9:54 AM QUALITY FACILITATOR Inhaled Oxygen Concentration - - Weight 77.1 [...] Procedure Name Priority Date/Time Associated Diagnosis Comments CARDIOLOGY DOCUMENT SCAN Routine 08/25/2024 4:29 PM CDT T4, FREE Routine 07/14/2024 10:50 AM CDT Postablative hypothyroidism THYROID FUNCTION CASCADE Routine 07/14/2024 10:50 AM CDT Postablative hypothyroidism from Last 3 Months Results * Cardiology Document Scan (08/25/2024 4:29 PM CDT) Anatomical Region Laterality Modality Other us Nory Francisco MD CV CARDIAC SERVICES PROCEDU RES Final Result * (ABNORMAL) Thyroid Function [place] (07/14/2024 10:50 AM CDT) TSH 5.63(H) 0.30 - 4.20 mcIUnit/mL Blood 07/14/2024 10:5 0 AM CDT 07/14/2024 6:01 PM CDT us Marce Brar MD LAB BLOOD ORDERABLE S Final Result Performing Organization Address [facility] Co de Phone Number ARTI [phone] [address] [place] [address] * T4, free (07/14/2024 10:50 AM CDT) Free T4 1.43 0.90 - 1.70 ng/dL Blood 07/14/2024 10:5 0 AM CDT 07/14/2024 6:09 PM CDT us Marce Brar MD LAB BLOOD ORDERABLE S Final Result Performing Organization Address City/[facility]/ZIP Co de Phone Number ARTI [phone] [address] [place] [address] from Last 3 Months Insurance [facility] MEDICARE MEDICARE Care Teams Service Tech Relationship Specialty Start Date End Date Bonifacio Baca MD [address] [place] [address] PCP - General Emergency Medicine 09/29/23
--- OUTSIDE RECORDS SUMMARY | 2024-09-06 11:32 | XMS_ITS | Referral Summary ---
Author Organization [facility] Medical Office Building B Address [address] [place] [address] Care Team Providers Care Lead Press Operator Name Role Phone Bonifacio Baca MD Primary Care Provide r Encounters Date Type Department Care Team Description 08/27/2024 Orders Only [facility] Medical [facility] Cardiology [address] [facility] [address] [place] [phone] Nory Francisco MD 07/28/2024 Telephone [facility] Medical [facility] Cardiology [address] [facility] [address] [place] [phone] Rowan Salcedo MD 07/27/2024 Telephone [facility] Medical [facility] Cardiology [address] [facility] [address] [place] [phone] Rowan Salcedo MD 07/22/2024 Telephone [facility] Cardiology [address] [facility] [address] [place] [phone] Rowan Salcedo MD 07/15/2024 Results [facility] of [address] [address] Marce Chappell MD Thyroid Function [place], T4, free 07/14/2024 10:30 AM CDT Lab [address] [address] Postablative hypothyroidism 07/14/2024 10:15 AM CDT Office Visit [facility] [place] [address] [place] [address] [address] [place] [address] Marce Chappell MD Postablative hypothyroidism (Primary Dx); Essential hypertension; Mixed hyperlipidemia 07/13/2024 Telephone [facility] Medical [facility] Diabetes and Endocrinology [address] [place] [address] Marce Chappell MD request to pcp for insurance referral from Last 3 Months Allergies No known active allergies Medications ezetimibe (ZETIA) 10 mg tablet 08/14/19 Active metoprolol XL (TOPROL-XL) 50 mg extended [...] 36.2 C (97.1 F) 03/15/2020 1:55 PM CERTIFIED CONTROL SYSTEMS TECHNICIAN Respiratory Rate 16 07/14/2024 10:12 AM CDT Oxygen Saturation 99% 04/19/2024 9:54 AM CERTIFIED CONTROL SYSTEMS TECHNICIAN Inhaled Oxygen Concentration - - Weight 77.1 [...] PM CDT) Anatomical Region Laterality Modality Other Nory Francisco MD CV CARDIAC SERVICES PROCEDU RES Final Result * (ABNORMAL) Thyroid Function [place] (07/14/2024 10:50 AM CDT) TSH 5.63(H) 0.30 - 4.20 mcIUnit/mL Blood 07/14/2024 10:5 0 AM CDT 07/14/2024 6:01 PM CDT Marce Brar MD LAB BLOOD ORDERABLE S Final Result ARTI LOVE [id number] Department of [employer] [address] * T4, free (07/14/2024 10:50 AM CDT) Free T4 1.43 0.90 - 1.70 ng/dL Blood 07/14/2024 10:5 0 AM CDT 07/14/2024 6:09 PM CDT Marce Brar MD LAB BLOOD ORDERABLE S Final Result ARTI KATE [address] [address] Department [employer] [address] from Last 3 Months Insurance AET MEDICARE MEDICARE Care Teams Lead Press Operator Relationship Specialty Start Date End Date Bonifacio Baca MD [address] [place] [address] PCP - General Emergency Medicine 09/29/23
[2024-09-08 23:59] LABS: Immunofixation, Serum Normal pattern.
== END 2024-09-06 10:56 | disposition home or self-care (01) ==
LOC: ANHLAB 10:56
PROVIDERS: PCP Emergency Medicine; Visit Provider Internal Medicine Nephrology
DX: N18.32 Chronic kidney disease, stage 3b (principal)
CPT/HCPCS: 36415; 80048; 81003; 86334

== ENCOUNTER 2024-09-29 11:50 | Outpatient (CLI) | payer MEDICARE, SELFPAY ==
[2024-09-29 12:55] LABS: Anion Gap 7 mmol/L (4-12); Blood Urea Nitrogen 33 mg/dL (7-17); Calcium 9.7 mg/dL (8.4-10.2); Carbon Dioxide 30 mmol/L (22-30); Chloride 99 mmol/L (98-107); Estimated Glomerular Filt Rate 29; Glucose 85 mg/dL (65-110); Potassium 3.5 mmol/L (3.4-5.0); Sodium 136 mmol/L (137-145)
--- OUTSIDE RECORDS SUMMARY | 2024-09-29 14:01 | XMS_ITS | Referral Summary ---
Author Organization [facility] Medical Office Building B Address [address] [place] [address] Care Team Providers Care Waste Reduction Coordinator Name Role Phone Bonifacio Baca MD Primary Care Provide r Encounters Date Type Department Care Team Description 08/27/2024 Orders Only [facility] Medical [facility] Cardiology [address] [facility] [address] [place] [phone] Nory Francisco MD 07/28/2024 Telephone [facility] Medical [facility] Cardiology [address] [facility] [address] [place] [phone] Rowan Salcedo MD 07/27/2024 Telephone [facility] Medical [facility] Cardiology [address] [facility] [address] [place] [phone] Rowan Salcedo MD 07/22/2024 Telephone [facility] Cardiology [address] [facility] [address] [place] [phone] Rowan Salcedo MD 07/15/2024 Results [facility] [address] [address] Marce Chappell MD Thyroid Function [place], T4, free 07/14/2024 10:30 AM CDT Lab [address] [address] Postablative hypothyroidism 07/14/2024 10:15 AM CDT Office Visit [facility] [place] [address] [place] [address] [address] [place] [address] Marce Chappell MD Postablative hypothyroidism (Primary Dx); Essential hypertension; Mixed hyperlipidemia 07/13/2024 Telephone [facility] Medical Group Diabetes and Endocrinology [address] [place] [address] Marce Chappell MD request to [...] mouth nightly 30 tablet 11 09/29/19 24 Active Xarelto 20 mg tablet TAKE 1 [...] 36.2 C (97.1 F) 03/15/2020 1:55 PM CLARIFIER OPERATOR Respiratory Rate 16 07/14/2024 10:12 AM CDT Oxygen Saturation 99% 04/19/2024 9:54 AM CLARIFIER OPERATOR Inhaled Oxygen Concentration - - Weight 77.1 kg (170 lb) 07/14/2024 10:12 AM CDT Height 160 cm (5' 3) 07/14/2024 10:12 AM CDT Body Mass Index [...] RES Final Result * (ABNORMAL) Thyroid Function [place] (07/14/2024 10:50 AM CDT) TSH 5.63(H) 0.30 - 4.20 mcIUnit/mL Blood 07/14/2024 10:5 0 AM CDT 07/14/2024 6:01 PM CDT us Marce Brar MD LAB BLOOD ORDERABLE S Final Result Performing Organization Address City/[facility] Co de Phone Number ARTI [address] [address] Department [place] [address] * T4, free (07/14/2024 10:50 AM CDT) Free T4 1.43 0.90 - 1.70 ng/dL Blood 07/14/2024 10:5 0 AM CDT 07/14/2024 6:09 PM CDT us Marce Brar MD LAB BLOOD ORDERABLE S Final Result Performing Organization Address [facility] de Phone Number ARTI [address] [address] Department [place] [address] from Last 3 Months Insurance T MEDICARE [facility] MEDICARE Address: [facility] [id number] [place] [phone] MEDICARE Care Teams Waste Reduction Coordinator Relationship Specialty Start Date End Date Bonifacio Baca MD [address] [place] [address] PCP - General Emergency Medicine 09/29/23
--- OUTSIDE RECORDS SUMMARY | 2024-09-29 14:01 | XMS_ITS | Clinical Summary ---
Author Organization [facility] Medical Office Building B Address [address] [place] [address] Care Team Providers Care Transitional Nurse Name Role Phone Bonifacio Baca MD Primary [...] by mouth nightly 30 tablet 09/29/19 24 Active Xarelto 20 mg tablet [...] 1-1/2 tablet on Friday 96 tablet 3 03/27/20 25 Active Active Problems Problem Noted Date [...] Department Care Team Description 08/27/2024 Orders Only [facility] Medical [facility] Cardiology [address] [place] [address] [place] [phone] Nory Francisco MD 07/28/2024 Telephone [facility] Cardiology [address] [place] [address] [place] [phone] Rowan Salcedo MD 07/27/2024 Telephone [facility] Cardiology [address] [place] [address] [place] [phone] Rowan Salcedo MD 07/22/2024 Telephone [facility] Cardiology [address] [place] [address] [place] [phone] Rowan Salcedo MD 07/15/2024 Results Follow-Up [facility] Specialists of [facility] [address] [place] [address] [place] [address] Marce Chappell MD Thyroid Function [place], T4, free 07/14/2024 10:30 AM CDT Lab [address] [address] Postablative hypothyroidism 07/14/2024 10:15 AM CDT Office Visit [facility] [address] [place] [address] [address] [address] Marce Chappell MD Postablative hypothyroidism (Primary Dx); Essential hypertension; Mixed hyperlipidemia 07/13/2024 Telephone [facility] Medical Group Diabetes and Endocrinology [facility] [place] [address] Marce Chappell MD request to [...] 36.2 C (97.1 F) 03/15/2020 1:55 PM MEAT LOINER Respiratory Rate 16 07/14/2024 10:12 AM CDT Oxygen Saturation 99% 04/19/2024 9:54 AM MEAT LOINER Inhaled Oxygen Concentration - - Weight 77.1 [...] RES Final Result * (ABNORMAL) Thyroid Function [place] (07/14/2024 10:50 AM CDT) TSH 5.63(H) 0.30 - 4.20 mcIUnit/mL Blood 07/14/2024 10:5 0 AM CDT 07/14/2024 6:01 PM CDT us Marce Brar MD LAB BLOOD ORDERABLE S Final Result Performing Organization Address City/[facility]/ZIP Co de Phone Number ARTI LOVE [address] [address] [employer] [place], [place] [id number] * T4, free (07/14/2024 10:50 AM CDT) Free T4 1.43 0.90 - 1.70 ng/dL Blood 07/14/2024 10:5 0 AM CDT 07/14/2024 6:09 PM CDT us Marce Brar MD LAB BLOOD ORDERABLE S Final Result ARTI [address] [address] Department [place] [address] from Last 3 Months Insurance T MEDICARE MEDICARE Care Teams Transitional Nurse Relationship Specialty Start Date End Date Bonifacio Baca MD [address] [place], [place] [phone] PCP - General Emergency Medicine 09/29/23
== END 2024-09-29 11:51 | disposition home or self-care (01) ==
LOC: ANHLAB 11:51
PROVIDERS: PCP Emergency Medicine; Visit Provider Internal Medicine Nephrology
DX: N18.32 Chronic kidney disease, stage 3b (principal)
CPT/HCPCS: 36415; 80048

== ENCOUNTER 2024-10-07 09:56 | Outpatient (CLI) | payer MEDICARE, SELFPAY ==
--- NOTE | ~2024-10-07 | US_ITS ---
LEFT LOWER EXTREMITY VENOUS ULTRASOUND Ordering provider: ALLAN Stafford History: . Y . Comparison: None. FINDINGS: --COMMON FEMORAL: Patent and free of thrombus. Normal compressibility, phasic flow and augmentation. --PROXIMAL SUPERFICIAL FEMORAL: Patent and free of thrombus. Normal compressibility, phasic flow and augmentation. --DISTAL SUPERFICIAL FEMORAL: Patent and free of thrombus. Normal compressibility, phasic flow and au gmentation. --POPLITEAL: Patent and free of thrombus. Normal compressibility, phasic flow and augmentation. --POSTERIOR TIBIAL: Patent and free of thrombus. Normal compressibility, phasic flow and augmentation . IMPRESSION: Negative left lower extremity venous US. No deep vein thrombosis. Reviewed, dictated and finalized at location A.
--- OUTSIDE RECORDS SUMMARY | 2024-10-07 10:38 | XMS_ITS | Clinical Summary ---
Author Organization [facility] Medical Office Building B Address [address] [place] [address] Care Team Providers Care Fruit Vendor Name Role Phone Bonifacio Baca MD Primary [...] Department Care Team Description 08/27/2024 Orders Only [facility] Medical [facility] Cardiology [address] [place] [address] [place] [phone] Nory Francisco MD 07/28/2024 Telephone [facility] Cardiology [address] [place] [address] [place] [phone] Rowan Salcedo MD 07/27/2024 Telephone [facility] Cardiology [address] [place] [address] [place] [phone] Rowan Salcedo MD 07/22/2024 Telephone [facility] Cardiology [address] [place] [address] [place] [phone] Rowan Salcedo MD 07/15/2024 Results [facility]-Up [facility] Specialists of [facility] [address] [place] [address] [place] [address] Marce Chappell MD Thyroid Function [place], T4, free 07/14/2024 10:30 AM CDT Lab [address] [address] Postablative hypothyroidism 07/14/2024 10:15 AM CDT Office Visit [facility] [address] [place] [address] [address] [address] Marce Chappell MD Postablative hypothyroidism (Primary Dx); Essential hypertension; Mixed hyperlipidemia 07/13/2024 Telephone [facility] Medical Group Diabetes and Endocrinology [facility] [place] [address] Marce Chappell MD request to [...] 36.2 C (97.1 F) 03/15/2020 1:55 PM CLINICAL MICROBIOLOGIST Respiratory Rate 16 07/14/2024 10:12 AM CDT Oxygen Saturation 99% 04/19/2024 9:54 AM CLINICAL MICROBIOLOGIST Inhaled Oxygen Concentration - - Weight 77.1 [...] RES Final Result * (ABNORMAL) Thyroid Function [place] (07/14/2024 10:50 AM CDT) TSH 5.63(H) 0.30 - 4.20 mcIUnit/mL Blood 07/14/2024 10:5 0 AM CDT 07/14/2024 6:01 PM CDT us Marce Brar MD LAB BLOOD ORDERABLE S Final Result Performing Organization Address City/[facility]/ZIP Co de Phone Number ARTI LOVE [address] [address] [employer] [place], [place] [id number] * T4, free (07/14/2024 10:50 AM CDT) Free T4 1.43 0.90 - 1.70 ng/dL Blood 07/14/2024 10:5 0 AM CDT 07/14/2024 6:09 PM CDT us Marce Brar MD LAB BLOOD ORDERABLE S Final Result ARTI [address] [address] Department [place] [address] from Last 3 Months Insurance [place] [phone] Care Teams Fruit Vendor Relationship Specialty Start Date End Date Bonifacio Baca MD [address] [place], [place] [phone] PCP - General Emergency Medicine 09/29/23
--- OUTSIDE RECORDS SUMMARY | 2024-10-07 10:38 | XMS_ITS | Referral Summary ---
Author Organization [facility] Medical Office Building B Address [address] [place] [address] Care Team Providers Care Resaw Carriage Operator Name Role Phone Bonifacio Baca MD Primary Care Provide r Encounters Date Type Department Care Team Description 08/27/2024 Orders Only [facility] Medical [facility] Cardiology 6810 [facility] [address] [place] [phone] Nory Francisco MD 07/28/2024 Telephone [facility] Medical [facility] Cardiology 68[address] [facility] [address] [place] [phone] Rowan Salcedo MD 07/27/2024 Telephone [facility] Medical [facility] Cardiology [address] [facility] [address] [place] [phone] Rowan Salcedo MD 07/22/2024 Telephone [facility] Cardiology [address] [facility] [address] [place] [phone] Rowan Salcedo MD 07/15/2024 Results [facility] [address], [place] [address] Marce Chappell MD Thyroid Function [place], T4, free 07/14/2024 10:30 AM CDT Lab [address] [address] Postablative hypothyroidism 07/14/2024 10:15 AM CDT Office Visit [facility] [place] [address] [place] [address] [address] [place] [address] Marce Chappell MD Postablative hypothyroidism (Primary Dx); Essential hypertension; Mixed hyperlipidemia 07/13/2024 Telephone [facility] Medical Group Diabetes and Endocrinology [address] [place] [address] Marce Chappell MD request to [...] 36.2 C (97.1 F) 03/15/2020 1:55 PM BAG BUNDLER Respiratory Rate 16 07/14/2024 10:12 AM CDT Oxygen Saturation 99% 04/19/2024 9:54 AM BAG BUNDLER Inhaled Oxygen Concentration - - Weight 77.1 [...] RES Final Result * (ABNORMAL) Thyroid Function [place] (07/14/2024 10:50 AM CDT) TSH 5.63(H) 0.30 - 4.20 mcIUnit/mL Blood 07/14/2024 10:5 0 AM CDT 07/14/2024 6:01 PM CDT us Marce Brar MD LAB BLOOD ORDERABLE S Final Result Performing Organization Address City/[facility] Co de Phone Number ARTI [phone] [address] Department [place] [address] * T4, free (07/14/2024 10:50 AM CDT) Free T4 1.43 0.90 - 1.70 ng/dL Blood 07/14/2024 10:5 0 AM CDT 07/14/2024 6:09 PM CDT us Marce Brar MD LAB BLOOD ORDERABLE S Final Result Performing Organization Address [facility] de Phone Number ARTI [address] [address] [place] [address] from Last 3 Months Insurance T [facility] MEDIC[facility] Address: [facility] [id number] [place] [phone] MEDICARE Care Teams Resaw Carriage Operator Relationship Specialty Start Date End Date Bonifacio Baca MD [address] [place] [address] PCP - General Emergency Medicine 09/29/23
== END 2024-10-07 09:57 | disposition home or self-care (01) ==
LOC: ANHIMG 10:01
PROVIDERS: PCP Emergency Medicine; Visit Provider Physician Assistant Surgical
DX: M25.462 Effusion, left knee (principal)
CPT/HCPCS: 93971

== ENCOUNTER 2025-01-19 14:38 | Outpatient (CLI) | payer MEDICARE, SELFPAY ==
--- OUTSIDE RECORDS SUMMARY | 2025-01-19 14:41 | XMS_ITS | Encounter Summary ---
Author Organization [facility] Healthcare Address [address] [place] [address] Care Team Providers Care Track Announcer Name Role Phone Bonifacio Baca MD Primary Care Provide r Encounter Details Date Type Department Care Team (Late st Contact Info) Description 08/24/[address] [facility] Health Information Management [address] [place] [id number] Scanning, Provider Social History Tobacco Use Types Packs/Day Years [...] Date/Time Associated Diagnosis Comments SCAN - RADIOLOGY/IMAGING 08/24/2024 documented in this encounter Results * SCAN - RADIOLOGY/IMAGING (08/24/2024) Anatomical Region Laterality Modality Other us Provider Scanning Final Result documented in this encounter Visit Diagnoses Not on filedocumented in this encounter Care Teams Track Announcer Relationship Specialty Start Date End Date Bonifacio Baca MD [address] [place] [address] PCP - General Emergency Medicine 09/29/23 documented as of this encounter
--- OUTSIDE RECORDS SUMMARY | 2025-01-19 14:41 | XMS_ITS | Clinical Summary ---
Author Organization [facility] Medical Office Building B Address [address] [place] [address] Care Team Providers Care Computer Aided Design Designer Name Role Phone Bonifacio Baca MD Primary Care Provide r Allergies No known active allergies Medications ezetimibe (ZETIA) 10 mg tablet 08/14/19 20 Active metoprolol XL (TOPROL-XL) 50 mg extended release tablet Take 1 tablet (50 mg total) by mouth daily 05/15/19 22 Active rOPINIRole (REQUIP) 2 mg tablet Take [...] Friday 96 tablet 3 07/16/19 25 Active guanFACINE (TENEX) 2 mg tabletIndications: Essential hypertension TAKE 1 TABLET BY MOUTH EVERY DAY NIGHTLY 90 tablet 1 10/12/19 25 Active losartan (COZAAR) 50 mg tablet Take 1 tablet (50 mg total) by mouth daily 09/15/19 25 Active Active Problems Problem Noted Date [...] today and further plans based on it Surgical History Surgery Date Site/Laterality Comments REPLACEMENT [...] Sign Reading Time Taken Comments Blood Pressure 134/72 10/18/2024 10:09 AM CDT Pulse 61 10/18/2024 10:09 AM CDT Temperature 36.2 C (97.1 F) 03/15/2020 1:55 PM LOCOMOTIVE SUPERVISOR Respiratory Rate 16 07/14/2024 10:12 AM CDT Oxygen Saturation 98% 10/18/2024 10:09 AM CDT Inhaled Oxygen Concentration - - Weight 77.1 kg (170 lb) 10/18/2024 10:09 AM CDT Height 160 cm (5' 3) 10/18/2024 10:09 AM CDT Body Mass Index 30.11 10/18/2024 10:09 AM CDT Plan of Treatment Health Maintenance Due Date Last Done Comments Depression Screening 1945 Osteoporosis Screening-Bone Density Scan 1945 DTaP/Tdap/Td Vaccine (1 - Tdap) 12/05/1955 Hepatitis B Screening 1962 Zoster Vaccine (1 of 2) 1994 Well Visit 65+ 2009 Fall Risk Assessment 07/14/2024 07/15/2023 Influenza Vaccine (#1) 2024 9, 02/13/2018, 03/25/2017, Additional history exists Pneumococcal vaccine 65+ Completed 03/25/2017, 03/21 Insurance [facility] MEDICARE MEDICARE [facility] Address: [address] [address] [place] [address] Care Teams Computer Aided Design Designer Relationship Specialty Start Date End Date Bonifacio Baca MD [address] [place] [address] PCP - General Emergency Medicine 09/29/23
--- OUTSIDE RECORDS SUMMARY | 2025-01-19 14:41 | XMS_ITS | Clinical Summary ---
Author Organization [facility] Address [address] [place] [address] Care Team Providers Care Night Order Selector Name Role Phone Bonifacio Baca MD Primary Care Provider [phone] Allergies No known active allergies Social History [...] Health Maintenance Due Date Last Done Comments DTaP, Tdap and Td Vaccines ( 1 - Tdap) 12/05/1963 Zoster Vaccines (1 of 2) 1994 Annual Medicare Wellness Visit 2009 Dexa Scan (General) 2009 RSV Immunization or 60+ Years (1 - 1-dose 75+ series) 12/05/2019 COVID-19 Vaccine ( - 2024-2 6 season) 2024 03/05/2021, 06/13/2020, 05/16/2020 Pneumococcal Vaccine: 50+ Years [...] age to complete this topic Insurance [employer] MEDICARE Care Teams Night Order Selector Relationship Specialty Start Date End Date Bonifacio Baca MD [address] [place] [address] PCP - General INTERNAL MEDICINE 07/06/21
[2025-01-19 15:22] LABS: Hematocrit 37.0 % (37.0-47.0); Hemoglobin 11.8 g/dL (12.0-15.0); Mean Corpuscular HGB Conc 31.9 g/dl (32-36); Mean Corpuscular Hemoglobin 28.1 pg (26-34); Mean Corpuscular Volume 88.1 fl (80-100); Platelet Count Result 190 k/mm3 (150-375); Red Blood Count 4.20 M/mm3 (4.2-5.4); White Blood Count 5.8 K/mm3 (4.5-10.0)
[2025-01-19 15:44] LABS: Albumin Level 4.0 g/dL (3.5-5.1); Anion Gap 9 mmol/L (4-12); Blood Urea Nitrogen 33 mg/dL (7-17); Calcium 8.9 mg/dL (8.4-10.2); Carbon Dioxide 29 mmol/L (22-30); Chloride 98 mmol/L (98-107); Estimated Glomerular Filt Rate 30; Glucose 91 mg/dL (65-110); Potassium 3.6 mmol/L (3.4-5.0); Sodium 136 mmol/L (137-145)
[2025-01-19 15:48] LABS: Parathyroid Intact 98.7 pg/mL (14.5-75.2)
[2025-01-19 16:23] LABS: Total Protein Urine Random 10 mg/dL; Ur Ttl Prot Creatinine Ratio 0.18 mg/mg (0-0.20)
== END 2025-01-19 14:39 | disposition home or self-care (01) ==
LOC: ANHLAB 14:39
PROVIDERS: PCP Emergency Medicine; Visit Provider Internal Medicine Nephrology
DX: I12.9 Hypertensive chronic kidney disease with stage 1 through stage 4 chronic kidney disease, or unspecified chronic kidney disease (principal); N18.32 Chronic kidney disease, stage 3b
CPT/HCPCS: 36415; 80069; 82570; 83970; 84156; 85027